=== PATIENT | male | born 1960 | race Caucasian/White ===

== ENCOUNTER 2020-04-02 06:36 | Outpatient (CLI) | payer MEDICARE, SELFPAY ==
--- NOTE | 2020-04-02 06:45 | US_ITS ---
WS: [id number] Normal testicular blood flow. Scrotal and testicular ultrasound, 04/02/2020 Clinical Data: PAIN IN TESTICLE;UNSPECIFIED LATERALITY; SWELLING RIGHT Comparison: None. Findings: The right testes measures 4.7 cm x 3.2 cm x 2.5 cm. There is a large right hydrocele The left testes measures 4.4 cm x cm x 2.4 cm. There is a small left hydrocele There is normal bilateral blood flow with no evidence of orchitis or torsion. No masses or abnormal c alcifications are noted. US/US scrotum 13414 Impression: 1. Large right hydrocele and small left hydrocele. 2. Normal testicular blood flow.
== END 2020-04-02 06:37 | disposition home or self-care (01) ==
PROVIDERS: Visit Provider Family Medicine
DX: N50.819 Testicular pain, unspecified (principal); N50.89 Other specified disorders of the male genital organs; N43.3 Hydrocele, unspecified
CPT/HCPCS: 76870

== ENCOUNTER → 2021-07-29 09:12 | Outpatient (BNVA) | payer BC, SELFPAY | PROVIDERS: Visit Provider Internal Medicine Cardiovascular Disease | DX: Z20.822 Contact with and (suspected) exposure to COVID-19 (principal); E11.9 Type 2 diabetes mellitus without complications; E78.5 Hyperlipidemia, unspecified | CPT/HCPCS: 80053; 80061; 83036; 87635 ==

== ENCOUNTER 2021-08-02 11:10 | Outpatient (CLI) | payer BC, SELFPAY ==
[2021-08-02 12:14] LABS: Anion Gap 20.5 (5-19); Blood Urea Nitrogen 22 mg/dL (8-23); Calcium 9.9 mg/dL (8.5-10.5); Carbon Dioxide 20 mmol/L (22-29); Chloride 99 mmol/L (98-107); Glomerular Filtration Rate 85.2 mL/min (90-130); Glucose 146 mg/dL (65-115); Osmolality Calculated 286 mOsm/kg (285-295); Potassium 4.5 mmol/L (3.5-5.1); Sodium 135 mmol/L (136-145)
[2021-08-05 22:47] LABS: Beta-Hydroxybutyrate 0.24 mmol/L
== END 2021-08-02 11:11 | disposition home or self-care (01) ==
PROVIDERS: Visit Provider Internal Medicine
DX: E87.2 Acidosis (principal)
CPT/HCPCS: 36415; 80048; 82010

== ENCOUNTER 2021-08-03 08:43 | Outpatient (CLI) | payer MEDICARE, BC, SELFPAY ==
[2021-08-03] VITALS (30 sets, daily range): BP systolic 101–141; BP diastolic 60–89; PULSE 67–90; RESP 8–44; TEMP 36.4; O2SAT 92–99; BMI 34.4; BMI 33.7
--- NOTE | 2021-08-03 09:00 | XACV_ITS ---
Exam Room: 2 Ht: 191 cm Wt: 132 kg BSA: 2.68 m2 Gender: Male : 1960 Any Known Allergies: No known allergies Exam Priority: Routine Procedure(s): Procedure Description: Diagnostic procedure Procedure Description: PCI procedure Procedure Description: Drug Eluting Coronary Stent Procedure Description: Miscellaneous Procedure Description: ACT Procedure Description: Coronary Angiography Radha LANCASTER; Diagnostic Cath Status: Elective Diagnostic Findings * Left Main has no disease. * Left Anterior Descending has no disease. * Circumflex has no disease. * Posterior Descending Right: significant 80% stenosis, VICTORIANO: 3 flow. * Coronary angiography shows right dominance. PCI Status: Elective PCI Indication: New Onset Angina <= 2 months Interventional Findings * Posterior Descending Right: 80% stenosis treated with a MDT R KYLEIGH 2.75X12 ROB. 0% residual stenosis, VICTORIANO: 3 flow. Conclusions 1. There is significant coronary artery disease with one vessel disease. 2. Posterior Descending Right was treated with a Drug Eluting Stent. Recommendations * 1-Return to inpatient for close monitoring and routine cath care 2-Risk factor modification for secondary prevention 3-Statin and aspirin 81 mg life--long, if tolerated 4-Patient was pre-loaded with 600 mg of Plavix, continue Plavix 75mg p.o. daily for at least one year. We will assess at the end of one year again to continue if further or not 5-Continue optimal medical management 6-Follow up with cardiology in four weeks and your primary care in 10 days. Diagnostic RX Recommendation: PCI w/o planned CABG Pressures Phase:Rest AO : 82 / 61 ( 72 ) @ 11:24:00 AM Clinical Evaluation EBL: 5mL-10mL Procedural Details Procedure Consent Obtained. Pre-Procedure Time Out. Identified patient by full name and date of as verbalized by the patient/guarantor. Does the consent match the physician's order: Yes. Accurate & Complete Informed Consent: Yes. Inpatient/Outpatient History & Physical on Chart: Yes. If H&P is completed, is and addenduem needed: No; If yes, is the addendum complete: N/A. Visualize and Verify Site with Patient/Guarantor: N/A. Relevant Radiology Images available: Yes. Pre-op teaching completed and patient verbalized understanding. The risks, benefits, and alternatives of sedation and/or procedure were discussed by physician. The patient agrees to continue. Procedure started. [facility] Clinical Fraility Score: 3: Managing Well. 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 Chest Pain Symptom Assessment: Typical Angina Symptoms. Correct patient, site and procedure confirmed by cath team. Current diagnosis: Chest Pain. PERRLA. Strong, equal hand hand rug braider bilaterally. Lungs clear x 5 lobes. IV Site on Arrival: 20 gauge in the left anticubital. IV Fluids: 0.9% NaCl at KVO. 0 mL infused prior to laboratory sampler. Pre Procedural Pulses: right dorsalis pedis was Doppled. Pre Procedural Pulses: left dorsalis pedis was 1+. Pre Procedural Pulses: right posterior tibial was Doppled. Pre Procedural Pulses: left posterior tibial was 1+. Pre Procedural Pulses: bilateral radial was 2+. Oxygen started at 2liters/min via nasal canula. right groin was prepped with chloroprep then draped in the usual sterile fashion. right radial was prepped with chloroprep then draped in the usual sterile fashion. Baseline sample Acquired. HR: 73 BPM. Physician notified. Procedure started. Physician arrived. Physician scrubbed in. Immediate Pre-Procedure Time Out. Correct Patient: Yes; Correct Procedure: Yes; Correct Site: Yes; Correct Patient Position: Yes; Correct Supplies: Yes; Dried Flammable Prep: Yes; Blood Products Available: No;. Lidocaine 1% infiltrated to the right radial. Arterial access obtained. A 5 anguillan Rajiv catheter in over wire. Multiple views taken of right coronary artery. Catheter redirected to the LCA. Multiple views taken of left coronary artery. Catheter out. 6 anguillan [place] 0.75 guide catheter was inserted over the wire. [place] guidewire was advanced through the guide catheter to lesion in the PDA. Inflation Number : 1 [place] KYLEIGH 2.75X12 ROB -Lot Number# [id number] was prepped and advanced across the R PDA. The stent was deployed at 16 MARCELA for 0:22 seconds. exp 04-13-2024. Stent balloon out over wire. Results checked. Wire out. Guide catheter out. ACT drawn. Results 265 seconds. Therapeutic limits - pre-heparin administration 90-150 seconds and monitoring heparin during a vascular procedure >250 seconds. TR band placed. Hemostasis obtained. Post Procedure: Pulses reassessed and unchanged. PERRLA. Strong, equal hand hand rug braider bilaterally. No VTE prophylaxis required. Medication's Wasted: Lidocaine 1% = 18 mL. Medication's Wasted: Nitro = 49.8 mg. Medication's Wasted: Heparin = 3000 units. Total IV fluids: 71 mL. Complications: None. Estimated blood loss: 5mL-10mL. Responsiveness - Normal response to verbal stimuli; alert and oriented, PERRLA. Airway - Unaffected, no intervention required; spontaneous ventilation. Circulation: W/N/L, pulses unchanged. Nausea/Vomiting: No. Procedure completed. Patient transferred by wheelchair to 1st floor. Vital chart was stopped. Access Site Site: Right Radial artery Sheath Size: 6 Fr Hemostasis Success: Unsuccessful Procedure Medications Start: 12:51 PM Stop: 12:51 PM Medication: Benadryl Amount: 50 mg Route: I.V. Start: 1:08 PM Stop: 1:08 PM Medication: Versed Amount: 1 mg Route: I.V. Start: 1:08 PM Stop: 1:08 PM Medication: Fentanyl Amount: 50 mcg Route: I.V. Start: 1:12 PM Stop: 1:12 PM Medication: Versed Amount: 1 mg Route: I.V. Start: 1:12 PM Stop: 1:12 PM Medication: Fentanyl Amount: 50 mcg Route: I.V. Start: 1:16 PM Stop: 1:16 PM Medication: Nitrogylcerin Amount: 200 mcg Route: I.A. Start: 1:16 PM Stop: 1:16 PM Medication: Versed Amount: 1 mg Route: I.V. Start: 1:16 PM Stop: 1:16 PM Medication: Fentanyl Amount: 50 mcg Route: I.V. Start: 1:18 PM Stop: 1:18 PM Medication: Heparin Amount: 5000 units Route: I.V. Start: 1:30 PM Stop: 1:30 PM Medication: Heparin Amount: 8000 units Route: I.V. Start: 1:38 PM Stop: 1:38 PM Medication: Aggrastat 12.5 mg/250 mL Amount: 65 ml Route: I.V. bolus Start: 1:42 PM Stop: 1:42 PM Medication: Aggrastat 12.5 mg/250 mL Amount: ml/hr Route: I.V. bolus Start: 1:50 PM Stop: 1:50 PM Medication: Plavix Amount: 600 mg Route: P.O. I, the attending physician, have reviewed and verified all procedure medications. Yes, all medications given per verbal order History/Risk Factors Hypertension: Yes Dyslipidemia: Yes Peripheral Arterial Disease (PAD): No Myocardial Infarction (ID): No Obesity: No Renal Disease: No Prior Interventions PCI: No CABG: No Valve Surgery: No Report Signatures Finalized by Erika Garcia MD on 08/15/2021 04:29 PM
[2021-08-03 09:51] LABS: Basophils % 0.7 %; Eosinophils # 0.2 10^3/uL (0.0-0.8); Eosinophils % 3.3 %; Hemoglobin 14.2 g/dL (11.7-16.6); Lymphocytes # 1.4 10^3/uL (0.8-4.8); Lymphocytes % 23.5 %; Mean Corpuscular Hemoglobin 28.5 pg (28.0-34.0); Mean Corpuscular Volume 86.3 fl (80-94); Mean Platelet Volume 9.5 fL (7.4-10.4); Monocytes # 0.5 10^3/uL (0.2-0.9); Monocytes % 7.6 %; Neutrophils # 3.89 10^3/uL (1.8-7.7); Neutrophils % 64.6 %; Nucleated Red Blood Cells % 0 %; Platelet Count 215 10^3/cmm (130-400); Red Blood Count 4.98 10^6/uL (4.1-5.3); Red Cell Distribution Width 12.1 % (12.1-15.1)
--- NOTE | 2021-08-03 13:06 | P.HP_ITS ---
Same Day Surgery H&P Indication for Procedure/HPI DATE OF PROCEDURE: August 03, 2021 CHIEF COMPLAINT/INDICATIONFOR SURGICAL PROCEDURE: Chest pain PREOP DIAGNOSIS: Chest pain relieved with nitroglycerin on frequent basis PLANNED PROCEDRUE: Operation Date: 08/03/21 10:00 Proposed Procedures p Cardiac Catheterization(Left) - Erika Garcia MD 61-year-old male past medical history significant for hypertension hyperlipidemia uncontrolled diabetes mellitus for worsening of chest pain or shortness of breath and frequent use of nitroglycerin for chest pain is here for left heart cath. Patient has been explained all risk benefit and already for the procedure he would like to proceed with it. According to him he chest pain is crippling him and he cannot do much without taking nitroglycerin. He is on statin aspirin lisinopril and nitroglycerin along with beta-chandra. He is on optimal medical management but it has not improved his situation. Medications/Allergies* Home Medications Medication Instructions Recorded Confirmed Type cholecalciferol (vitamin D3) 125 125 mcg PO DAILY 06/24/21 08/03/21 History mcg (5,000 unit) capsule multivitamin 1 tab PO DAILY 06/24/21 08/03/21 History potassium gluconate 595 mg (99 mg) 595 mg PO DAILY 07/28/21 08/03/21 History tablet Ozempic 0.5 mg SUBCUT DIRECTED 08/03/21 08/03/21 History Allergies/Adverse Reactions Allergy/AdvReac Type Severity Reaction Status Date / Time No Known Allergies Allergy Verified 07/28/21 10:06 Pertinent History/Comorbid Conditions* Medical History (Updated 07/30/21 @ 08:55 by Watson Hernández MD) Arthritis DDD (degenerative disc disease) Diabetes mellitus HTN (hypertension) Hyperlipidemia Sleep apnea Surgical History (Updated 07/28/21 @ 21:38 by Watson Hernández MD) History of back surgery History of hydrocelectomy S/P hernia repair S/P shoulder surgery S/P total knee arthroplasty Family History (Updated 06/24/21 @ 10:24 by Fallon William RN) Father, Small cell lung disease Diabetes Mother CHF (congestive heart failure) Mother FH: CABG (coronary artery bypass surgery) Father Lung disease Father Cancer Hypertension Mother Father Stroke Mother Social History Second hand smoke exposure: No Smoking risk assessment/counseling performed?: Yes Alcohol intake: never Desire information about alcohol rehabilitation?: No Counseling given: No Desire information about substance/drug rehabilitation?: No Counseling given: No Adopted: No Caregiver/support person: No Lives independently: Yes Household members: spouse Housing: House Marital status: Number of children: 4 Highest education level completed: Some College, No Degree Education level details: 4 yrs electronic service: No Current occupational status: disabled History of recent travel: No Pertinent Exam Findings alert, oriented x 3, clear to auscultation bilaterally and regular rate & rhythm Conscious Sedation Assessment PATIENT ASSESSED PRIOR TO SEDATION, WITH NO CHANGE NOTED: Yes AIRWAY EVAL/ANESTHESIA PLAN: ASA II and Risks, benefits & alternatives of sedation and/or procedure discussed Recommendations Surgery/Procedure today Coding Level of Care Code Acute 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
--- NOTE | 2021-08-03 13:06 | W.PM.OPSUD ---
Surgery/Procedure H&P Update DATE OF PROCEDURE: August 03, 2021 DATE H&P PERFORMED: 08/03/21 H&P UPDATE INFORMATION: I have reviewed H&P completed within last 30 days, I have examined patient prior to procedure and No changes to prior documentation PREOP DIAGNOSIS: Angina worsening of shortness of breath PLANNED PROCEDURE: Operation Date: 08/03/21 10:00 Proposed Procedures p Cardiac Catheterization(Left) - Erika Garcia MD PATIENT REASSESSED PRIOR TO SEDATION, WITH NO CHANGE NOTED: Yes PHYSICAL EXAM: alert and oriented x 3 AIRWAY EVAL/ANESTHESIA PLAN: ASA II and Risks, benefits & alternatives of sedation and/or procedure discussed ADDITIONAL INFORMATION: Patient has been explained all risk benefit and alternative for the procedure he understand risk for contrast-induced nephropathy stroke major minor bleed he is a Rastafarian would not like to be transfused. He understand risk for urgent emergent bypass surgery vascular surgery hematoma. He is a candidate for DAPT he would like to proceed with it
[2021-08-03] MEDS: tirofiban 5 MG/100 ML PREMIX 23.6 MG IV (14:00)
[2021-08-03] MEDS: sodium chloride 0.9% 1,000 ML 100 ML IV (14:00)
--- NOTE | 2021-08-03 15:57 | PC.NURSE ---
received in to room 107 from cardiac cemetery laborer at 1410.report received.pt is alert and awake.denies pain.sr on monitor.right wrist with tr band on and inflated.no hematoma noted.right hand is warm to touch and with brisk capillary refill.palpable radial pulse noted distal to tr band.instructed in activity restrictions s/p radial artery procedure and instructed to notify staff for any bleeding,pain,numbness,or for any concerns at all.pt verb understanding of instructions
--- NOTE | 2021-08-03 19:21 | PC.NURSE ---
tr band slowly deflated over several hours.no hematoma noted.right hand remains warm to touch and with brisk capillary refill.palpable radial pulse remains.instructed in activity restrictions..and to notify staff for any bleeding,pain,numbness,or for any concerns at all.pt verb understanding of instructions
[2021-08-04] VITALS (46 sets, daily range): BP systolic 114–123; BP diastolic 69–82; PULSE 67–88; RESP 0–40; TEMP 36.9; O2SAT 97–99
[2021-08-04 03:12] LABS: Basophils % 0.5 %; Eosinophils # 0.2 10^3/uL (0.0-0.8); Eosinophils % 2.6 %; Hematocrit 40.9 % (42.0-52.0); Hemoglobin 13.5 g/dL (11.7-16.6); Lymphocytes # 0.9 10^3/uL (0.8-4.8); Mean Corpuscular Hemoglobin 29.2 pg (28.0-34.0); Mean Corpuscular Volume 88.3 fl (80-94); Mean Platelet Volume 9.3 fL (7.4-10.4); Monocytes # 0.6 10^3/uL (0.2-0.9); Monocytes % 10.3 %; Neutrophils # 4.41 10^3/uL (1.8-7.7); Neutrophils % 72.4 %; Nucleated Red Blood Cells % 0 %; Platelet Count 179 10^3/cmm (130-400); Red Blood Count 4.63 10^6/uL (4.1-5.3); Red Cell Distribution Width 12.3 % (12.1-15.1); White Blood Count 6.1 10^3/uL (4.0-10.0)
[2021-08-04 03:31] LABS: Anion Gap 17.9 (5-19); Blood Urea Nitrogen 19 mg/dL (8-23); Calcium 8.5 mg/dL (8.5-10.5); Carbon Dioxide 21 mmol/L (22-29); Chloride 102 mmol/L (98-107); Glomerular Filtration Rate 67.6 mL/min (90-130); Glucose 119 mg/dL (65-115); Osmolality Calculated 287 mOsm/kg (285-295); Potassium 3.9 mmol/L (3.5-5.1); Sodium 137 mmol/L (136-145)
--- NOTE | 2021-08-04 09:02 | PM.DCS ---
Discharge Providers Date of Discharge: August 04, 2021 Attending Provider at Discharge: Erika Garcia MD Reason for Visit Reason for Visit: 20209 [id number] Hospital Course Hospital Course 58-year-old male past medical history significant for obesity hypertension hyperlipidemia diabetes mellitus for worsening of shortness of breath and chest pain requiring nitroglycerin underwent coronary angiogram noted to have significant mid PDA 30% stenotic lesion. Were treated with drug-eluting stent. Post PCI course remains uncomplicated this morning he is walking around without any difficulty. He is being discharged home. He has been advised to continue aspirin and statin and clopidogrel. After 1 year we will assess for the necessity to continue clopidogrel or not. Physical Exam Narrative: EXAM NARRATIVE: GENERAL: Patient is alert, awake and oriented x3. NECK: No jugular vein distension. HEENT: No cyanosis. No icterus. No pallor. HEART: Regular S1 and S2. No murmur, rub or gallop. LUNGS: Clear to auscultate bilaterally. ABDOMEN: Soft, nontender and nondistended. Positive bowel sounds. No guarding, rebound or tenderness. CENTRAL NERVOUS SYSTEM: Grossly nonfocal. EXTREMITIES: Lower extremities without edema bilaterally. 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 Routin e Exams 08/03/21 09:00 Taken Labs from last 24 hours 08/04/21 08/04/21 08/03/21 02:20 02:20 09:33 WBC 6.1 6.0 RBC 4.63 4.98 Hgb 13.5 14.2 Hct 40.9 L 43.0 MCV 88.3 86.3 MCH 29.2 28.5 MCHC 33.0 33.0 RDW 12.3 12.1 Plt Count 179 215 MPV 9.3 9.5 Neut % (Auto) 72.4 64.6 Lymph % (Auto) 14.0 23.5 Mathews % (Auto) 10.3 7.6 Eos % (Auto) 2.6 3.3 Baso % (Auto) 0.5 0.7 Neut # (Auto) 4.41 3.89 Lymph # (Auto) 0.9 1.4 Mathews # (Auto) 0.6 0.5 Eos # (Auto) 0.2 0.2 Baso # (Auto) 0.0 0.0 Nucleated RBC % (a uto) 0 0 Nucleated RBCs # 0.0 0.0 Sodium 137 Potassium 3.9 Chloride 102 Carbon Dioxide 21 L Anion Gap 17.9 BUN 19 Creatinine 1.1 GFR Calculation 67.6 L Glucose 119 H Calculated Osmolal ity 287 Calcium 8.5 Vitals: Last Vital Signs Temp 97.6 F 08/03/21 09:48 Pulse 68 08/04/21 04:53 Resp 18 08/04/21 03:35 BP 114/69 08/04/21 03:35 Pulse Ox 97 08/04/21 00:20 Discharge Plan Discharge Patient Disposition: Home Prescriptions: New clopidogrel 75 mg Tablet 75 mg PO DAILY Qty: 90 RF: 4 Continued multivitamin Tablet 1 tab PO DAILY RF: 0 cholecalciferol (vitamin D3) 125 mcg (5,000 unit) capsule 125 mcg PO DAILY RF: 0 metoprolol succinate 25 mg tablet extended release 24 hr 12.5 mg PO DAILY Qty: 45 RF: 3 lisinopril 10 mg tablet 10 mg PO DAILY Qty: 90 RF: 3 atorvastatin 40 mg tablet 40 mg PO DAILY Qty: 90 RF: 3 nitroglycerin [Nitrostat] 0.4 mg tablet, sublingual 0.4 mg sublingual Q5M PRN (Reason: chest pain) Qty: 25 RF: 3 aspirin [Adult Low Dose Aspirin] 81 mg tablet,delayed release (DR/EC) 81 mg PO DAILY Qty: 90 RF: 3 potassium gluconate 595 mg (99 mg) tablet 595 mg PO DAILY RF: 0 Jardiance 25 mg tablet 25 mg PO DAILY Qty: 90 RF: 3 metformin 1,000 mg tablet 1,000 mg PO BID Qty: 180 RF: 3 Ozempic 0.5 mg 0.5 mg SUBCUT DIRECTED RF: 0 Discontinued isosorbide mononitrate 30 mg tablet extended release 24 hr 15 mg PO BID Qty: 90 RF: 3 Discharge Orders: Discharge Order (Routine); Ordered 08/04/21 Ordered By: Erika Garcia Diet: Cardiac and Diabetic Activity: Increase activity as tolerated Patient Instructions: Coronary Intravascular Stent Placement (DC) Activity Restrictions/Additional Instructions: Dr. Arellano in 6 weeks. Follow-up with Sarah Concepcion in 7 days. You have an appointment with Sarah Concepcion [facility] on August 13 at 11:30 am. You have an appointment with Dr. Arellano on MondaySeptember 13 at 12:30 pm. Discharge Date/Time: 08/04/21 10:30 Discharge Attestations Time Spent in Discharge Care*: less than 30 min Specific Discharge Activities: educating patient Time Spent in Smoking Cessation: 3 to 10 minutes Quality Metrics Clinical Quality Measures During this hospital stay, did patient experience: None Coding Level of Care Code Established Pt Acute Chg FW DC note Patient Type Established History Detailed Exam Detailed Medical Decision Making Moderate Complexity
[2021-08-04] MEDS: clopidogrel 75 mg Tablet PO (09:11)
[2021-08-04] MEDS: atorvastatin 40 mg Tablet PO (09:11)
[2021-08-04] MEDS: aspirin 81 mg EC Tablet PO (09:12)
--- NOTE | 2021-08-04 09:56 | PC.CHAP ---
Pastoral Care Encounter/Spiritual Assessment Type of Contact [] Declined chimney builder visit [] Patient/Family/Request visit [] Outpatient visit [] Follow-up visit [] Physician referral [] Code/Alert [x] Routine visit [] Staff referral [] Actively dying [] Patient sleeping [] Family support [] [] Out of room [] Palliative care [] [] Receiving care in room [] Pre-surgical visit [] Trauma [] Long length of stay [] ICU visit [] Other: Relational/Emotional Strength [] Patient feels connected with others/family/visitors/staff [] Distress [] Loneliness/isolation [] Abandonment Spirituality of Patient [] Person of Dara [] Attends Evangelical of their Dara [] Believes in Prayer [] Reads Bible or Protestant materials [] There are Spiritual issues to be addressed Track Layer Interventions [] Prayer [] Active listening [] Non-anxious presence [] Spiritual/emotional support [] Crisis/trauma care [] Spiritual counseling [] Bereavement support [] Provided bereavement packet [] Provided Bible/devotional materials [] Provided toy/stuffed animal, coloring book to patient or family member [] Provided Communion [] Anointing/Imbler [] Salvation [x] Completed spiritual assessment [] Other: Impact on Illness or Injury [] Angry [] Fearful [] Anxious [] Often cries [] Exhaustion [] Unable to work [] Unable to attend restoration [] Unable to walk/stand [] Unable to read [] Unable to drive [] Unable to eat/drink [] Unable to sleep [] Unable to be with family [] Patient intubated [] Other: Summary patient had procedure.. because of his dara i prayed outside the room.. but wished him well and excited about him preparing to return home Time spent with patient 5 min
== END 2021-08-04 10:30 | disposition home or self-care (01) ==
LOC: CCL 08:50 → CSU 13:53
PROVIDERS: Visit Provider Internal Medicine Cardiovascular Disease
DX: I25.10 Atherosclerotic heart disease of native coronary artery without angina pectoris (principal); I10 Essential (primary) hypertension; E78.5 Hyperlipidemia, unspecified; M19.90 Unspecified osteoarthritis, unspecified site; E11.9 Type 2 diabetes mellitus without complications; G47.30 Sleep apnea, unspecified; Z79.82 Long term (current) use of aspirin; Z79.84 Long term (current) use of oral hypoglycemic drugs
CPT/HCPCS: 36415; 80048; 85025; 85347; 93454; C1769; C1874; C1887; C1894; C9600; J1200; J1644; J2250; J3010; J3490; J7030; Q9967

== ENCOUNTER → 2021-08-13 11:28 | Outpatient (BNVA) | payer MEDICARE, SELFPAY | PROVIDERS: Visit Provider Nurse Practitioner Family | DX: E78.5 Hyperlipidemia, unspecified (principal); I10 Essential (primary) hypertension | CPT/HCPCS: 80048 ==

== ENCOUNTER → 2022-01-14 09:43 | Outpatient (BNVA) | payer MEDICARE, SELFPAY | PROVIDERS: Visit Provider Internal Medicine | DX: I25.10 Atherosclerotic heart disease of native coronary artery without angina pectoris (principal); I10 Essential (primary) hypertension; E11.9 Type 2 diabetes mellitus without complications; Z79.84 Long term (current) use of oral hypoglycemic drugs | CPT/HCPCS: 99213; 99214 ==

== ENCOUNTER → 2022-01-26 08:38 | Outpatient (BNVA) | payer MEDICARE, SELFPAY | PROVIDERS: Visit Provider Internal Medicine | DX: E11.9 Type 2 diabetes mellitus without complications (principal); E78.5 Hyperlipidemia, unspecified | CPT/HCPCS: 80053; 80061; 82043; 83036 ==

== ENCOUNTER → 2022-07-08 10:20 | Outpatient (BNVA) | payer MEDICARE, SELFPAY | PROVIDERS: PCP Family Medicine; Visit Provider Internal Medicine | DX: I25.10 Atherosclerotic heart disease of native coronary artery without angina pectoris (principal); I10 Essential (primary) hypertension; E78.5 Hyperlipidemia, unspecified; E11.9 Type 2 diabetes mellitus without complications; Z79.84 Long term (current) use of oral hypoglycemic drugs | CPT/HCPCS: 99214 ==

== ENCOUNTER → 2022-12-21 08:40 | Outpatient (BNVA) | payer MEDICARE, SELFPAY | PROVIDERS: PCP Family Medicine; Visit Provider Internal Medicine | DX: E78.5 Hyperlipidemia, unspecified (principal) | CPT/HCPCS: 80053; 80061; 82043; 83036 ==

== ENCOUNTER → 2023-03-31 09:29 | Outpatient (BNVA) | payer MEDICARE, SELFPAY | PROVIDERS: PCP Family Medicine; Visit Provider Internal Medicine | DX: E11.9 Type 2 diabetes mellitus without complications (principal); E78.5 Hyperlipidemia, unspecified | CPT/HCPCS: 80053; 80061; 82043; 83036 ==

== ENCOUNTER → 2023-04-03 10:37 | Outpatient (BNVA) | payer MEDICARE, SELFPAY | PROVIDERS: PCP Family Medicine; Visit Provider Internal Medicine | DX: E11.9 Type 2 diabetes mellitus without complications (principal); E78.5 Hyperlipidemia, unspecified; Z79.84 Long term (current) use of oral hypoglycemic drugs | CPT/HCPCS: 99214 ==

== ENCOUNTER → 2023-04-07 08:56 | Outpatient (BNVA) | payer MEDICARE, SELFPAY | PROVIDERS: PCP Family Medicine; Visit Provider Internal Medicine | DX: I10 Essential (primary) hypertension (principal); E11.9 Type 2 diabetes mellitus without complications; E78.5 Hyperlipidemia, unspecified; I25.10 Atherosclerotic heart disease of native coronary artery without angina pectoris; Z79.84 Long term (current) use of oral hypoglycemic drugs | CPT/HCPCS: 99213 ==

== ENCOUNTER → 2023-06-06 13:46 | Outpatient (BNVA) | payer MEDICARE, SELFPAY | PROVIDERS: PCP Clinical Nurse Specialist Adult Health; Visit Provider Clinical Nurse Specialist Adult Health | DX: J06.9 Acute upper respiratory infection, unspecified (principal) | CPT/HCPCS: 87426 ==

== ENCOUNTER → 2023-08-22 09:53 | Outpatient (BNVA) | payer MEDICARE, SELFPAY | PROVIDERS: PCP Family Medicine; Visit Provider Internal Medicine | DX: E11.9 Type 2 diabetes mellitus without complications (principal); E78.5 Hyperlipidemia, unspecified | CPT/HCPCS: 80053; 80061; 82043; 83036 ==

== ENCOUNTER → 2023-08-30 09:55 | Outpatient (BNVA) | payer MEDICARE, SELFPAY | PROVIDERS: PCP Family Medicine; Visit Provider Internal Medicine | DX: E11.69 Type 2 diabetes mellitus with other specified complication (principal); E78.5 Hyperlipidemia, unspecified; Z79.84 Long term (current) use of oral hypoglycemic drugs | CPT/HCPCS: 99214 ==

== ENCOUNTER → 2024-02-13 09:05 | Outpatient (BNVA) | payer MEDICARE, SELFPAY | PROVIDERS: PCP Family Medicine; Visit Provider Internal Medicine | DX: E11.69 Type 2 diabetes mellitus with other specified complication (principal); E78.5 Hyperlipidemia, unspecified | CPT/HCPCS: 80053; 80061; 82043; 83036 ==

== ENCOUNTER → 2024-02-15 08:53 | Outpatient (BNVA) | payer MEDICARE, SELFPAY | PROVIDERS: PCP Family Medicine; Visit Provider Internal Medicine | DX: E11.69 Type 2 diabetes mellitus with other specified complication (principal); E78.5 Hyperlipidemia, unspecified; Z79.84 Long term (current) use of oral hypoglycemic drugs | CPT/HCPCS: 99214 ==

== ENCOUNTER → 2024-02-29 09:50 | Outpatient (BNVA) | payer MEDICARE, SELFPAY | PROVIDERS: PCP Family Medicine; Visit Provider Nurse Practitioner Family | DX: I10 Essential (primary) hypertension (principal); I25.10 Atherosclerotic heart disease of native coronary artery without angina pectoris | CPT/HCPCS: 99214 ==

== ENCOUNTER → 2024-04-03 08:37 | Outpatient (BNVA) | payer MEDICARE, SELFPAY | PROVIDERS: PCP Family Medicine; Visit Provider Internal Medicine | DX: E11.69 Type 2 diabetes mellitus with other specified complication (principal); E78.5 Hyperlipidemia, unspecified; Z79.4 Long term (current) use of insulin; Z79.84 Long term (current) use of oral hypoglycemic drugs | CPT/HCPCS: 99214 ==

== ENCOUNTER → 2024-06-30 10:49 | Outpatient (BNVA) | payer MEDICARE, SELFPAY | PROVIDERS: PCP Family Medicine; Visit Provider Emergency Medicine | DX: R05.8 Other specified cough (principal) | CPT/HCPCS: 87426 ==

== ENCOUNTER 2024-08-20 10:14 | Outpatient (CLI) | payer MEDICARE, SELFPAY ==
--- NOTE | 2024-08-20 10:31 | XR_ITS ---
WS: [id number] Exam: XR knee RT 3V* [id number] Date/Time of Exam: 08/20/2024 10:34 AM Reason For Exam: M25.561 - Pain in right knee Total arthroplasty noted in good position without loosening or fracture. No joint effusion. Vascular calcification in the posterior soft tissues. Additional soft tissue calcifications noted medial and p osterior. XR/XR knee RT 3V* [id number] IMPRESSION: 1. Intact RIGHT total knee replacement without obvious complication.
== END 2024-08-20 10:15 | disposition home or self-care (01) ==
PROVIDERS: PCP Family Medicine; Visit Provider Nurse Practitioner Family
DX: M25.561 Pain in right knee (principal); Z96.89 Presence of other specified functional implants; Z96.651 Presence of right artificial knee joint; R93.6 Abnormal findings on diagnostic imaging of limbs
CPT/HCPCS: 73562

== ENCOUNTER 2024-09-25 09:11 | Outpatient (CLI) | payer MEDICARE, SELFPAY ==
--- NOTE | 2024-09-25 09:30 | MR_ITS ---
WS: [id number] MRI LUMBAR SPINE NONCONTRAST TECHNIQUE: Sagittal T1, T2 and STIR imaging. Axial T1 and T2 imaging. CLINICAL INFORMATION: M51.379 - Other intervertebral disc degeneration, lumbosa... COMPARISON: None. FINDINGS: Mild lumbar curve. No acute compression. Laminectomy defects L4-5 with wide decompression. Chronic appearing seroma in the laminectomy defects. Interbody bony fusion at L4-L5 and L5-S1. Interbody fusion graft L4-5. L1-L2: Moderate central canal stenosis. Moderate facet arthropathy with ligamentum flavum hypertrophy. Narrowing of the subarticular recess. Mild bilateral foraminal narrowing. L2-L3: Shallow central disc protrusion. Moderate central canal stenosis. Impingement on the subarticular recess bilaterally. Advanced facet arthropathy. Mild LEFT greater than RIGHT foraminal narrowing L3-L4: Mild annular bulging. Slight effacement of the ventral thecal sac. Moderate to advanced facet arthropathy. Foramen are patent. L4-L5: Interbody graft fusion. Impingement on the RIGHT subarticular recess and traversing RIGHT L5 nerve root. Moderate RIGHT foraminal narrowing. Decompressive laminectomy defects. L5-S1: Central disc osteophyte protrusion. Slight impingement on the traversing LEFT greater than RIGHT S1 nerve roots. Mild RIGHT greater than LEFT foraminal narrowing. Visualized pelvic bony structures: Normal. Paravertebral soft tissues: Normal. Small bilateral renal cysts partially visualized. MR/MR lumbar spine wo con* [id number] IMPRESSION: 1. Moderate central canal stenosis L1-2 and L2-3 worse at L2-3 with impingemen t on the subarticular recess bilaterally. 2. Narrowing of the RIGHT L4-5 subarticular recess with decompressive laminect kelsie defects. Moderate RIGHT L4-5 bony foraminal narrowing. 3. Slight retrolisthesis L5 on S1 with disc osteophyte protrusion. Slight encr oachment on the traversing S1 nerve roots LEFT greater than RIGHT. Mild bilater al foraminal narrowing.
== END 2024-09-25 09:12 | disposition home or self-care (01) ==
PROVIDERS: PCP Family Medicine; Visit Provider Nurse Practitioner Family
DX: M51.379 Other intervertebral disc degeneration, lumbosacral region without mention of lumbar back pain or lower extremity pain (principal); M48.061 Spinal stenosis, lumbar region without neurogenic claudication; R93.7 Abnormal findings on diagnostic imaging of other parts of musculoskeletal system; M96.89 Other intraoperative and postprocedural complications and disorders of the musculoskeletal system; M43.8X6 Other specified deforming dorsopathies, lumbar region; Z98.1 Arthrodesis status; M47.896 Other spondylosis, lumbar region; M24.28 Disorder of ligament, vertebrae; M51.369 Other intervertebral disc degeneration, lumbar region without mention of lumbar back pain or lower extremity pain; M25.78 Osteophyte, vertebrae; M51.27 Other intervertebral disc displacement, lumbosacral region; M48.07 Spinal stenosis, lumbosacral region; N28.1 Cyst of kidney, acquired
CPT/HCPCS: 72148

== ENCOUNTER → 2024-10-16 09:28 | Outpatient (BNVA) | payer MEDICARE, SELFPAY | PROVIDERS: PCP Family Medicine; Visit Provider Internal Medicine | DX: E11.69 Type 2 diabetes mellitus with other specified complication (principal); E78.5 Hyperlipidemia, unspecified | CPT/HCPCS: 80053; 80061; 82043; 83036 ==

== ENCOUNTER → 2024-10-22 09:13 | Outpatient (BNVA) | payer MEDICARE, SELFPAY | PROVIDERS: PCP Family Medicine; Visit Provider Internal Medicine | DX: E11.69 Type 2 diabetes mellitus with other specified complication (principal); E78.5 Hyperlipidemia, unspecified | CPT/HCPCS: 99214 ==

== ENCOUNTER 2024-11-19 08:34 | Outpatient (CLI) | payer MEDICARE, SELFPAY ==
--- NOTE | 2024-11-19 08:37 | IR_ITS ---
WS: [id number] MYELOGRAM LUMBAR SPINE Fluoroscopic guided lumbar myelogram CLINICAL INFORMATION: CHRONIC PAIN SYNDROME/SPINAL STENOSIS/S/P LSPINE FUSION TECHNIQUE: The procedure, including risks, benefits, and complications, were discussed with the patient who agreed to proceed. A timeout was performed to confirm correct patient, procedure, and site. Using sterile technique, the patient was prepped and draped in the usual sterile fashion. After administration of local anesthesia using 1% preservative-free lidocaine and using fluoroscopic guidance, a 22-gauge spinal needle was advanced into the subarachnoid space at T12-L1 level. Subsequently 13 cc of Omnipaque 240 was administered into the thecal sac. The needle was removed and hemostasis was achieved. Spot fluoroscopic images were obtained. FLUOROSCOPIC TIME: 4min [id number] # of spot films: [address] myelogram report for additional detail. IR/IR myelogram sp lumbar [id number] IMPRESSION: 1. Uncomplicated lumbar myelogram. 2. Please see CT report for imaging detail.
--- NOTE | 2024-11-19 08:37 | CT_ITS ---
WS: [id number] CT LUMBAR SPINE TECHNIQUE: Contrast-enhanced CT of the lumbar spine with coronal and sagittal reformatted images. Initial and 45-minute delayed imaging was obtained CLINICAL INFORMATION: DEGENERATION OF INTERVERTEBRAL DISC OF LSPINE REGION COMPARISON: MRI 09/25/2024 DLP: 1409.[address] scans at [facility] use at least one of these dose optimization techniques: automated exposure control; mA and/or kV adjustment per patient size (includes targeted exams where dose is matched to clinical indication); or iterative reconstruction. FINDINGS: Mild lumbar curve. No acute compression. Interbody fusion L4-5. Laminectomy defects in the lower lumbar spine with prominent dorsal lateral bone graft material. Interbody fusion L3-L5 with evidence of bony bridging beyond the confines of the graft. Hypertrophic changes lower thoracic and lumbar spine. Fluid collection in the laminectomy defects extending from L4-S1 with a few septations. Some of this may represent chronic postoperative seroma however there is a tiny amount of contrast staining on the initial and delayed imaging more conspicuous posterior to the facets at the L4-L5 and L5-S1 levels with a small amount of serpiginous contrast staining suspicious for pseudomeningocele. See notated images. No active extravasation of contrast or midline leaks involving the thecal sac L1-L2: Mild central canal stenosis. Narrowing of the subarticular recess. Moderate facet arthropathy ligamentum flavum hypertrophy. L2-L3: Mild annular bulging. Small central protrusion. Moderate thecal sac stenosis with crowding of the cauda equina nerve rootlets. Moderate facet arthropathy ligamentum flavum hypertrophy. Central canal stenosis is similar to the prior MRI. Mild LEFT foraminal narrowing. L3-L4: Interbody fusion. Moderate facet arthropathy. Laminectomy defects. Spinal canal and foramen are patent. L4-L5: Interbody bony fusion. Laminectomy defects. Mild RIGHT and no significant LEFT foraminal narrowing. Slight narrowing of the RIGHT greater than LEFT subarticular recess. Moderate facet arthropathy with posterolateral bone graft material. L5-S1: Residual disc osteophyte ridging with interbody fusion. Slight retrolisthesis. Slight contact of the traversing S1 nerve roots. Mild RIGHT greater than LEFT foraminal narrowing. Moderate facet arthropathy. Laminectomy defects. Visualized pelvic bony structures: Normal. Paravertebral soft tissues: Normal. Small bilateral renal cysts. CT/CT lumbar spine w con [id number] IMPRESSION: 1. Small amount of extrathecal contrast staining detailed above suspicious for postoperative pseudomeningocele although no dynamic visualized contrast leakag e or midline thecal sac CSF leak. Recommend follow-up with neurosurgery. 2. Mild central canal stenosis L1-2 and moderate central canal stenosis L2-3. Crowding of the cauda equina nerve rootlets at L2-3. 3. Impingement on the RIGHT greater than LEFT subarticular recess at L4-L5. 4. L5-S1 osteophyte complex contacts the LEFT greater than RIGHT S1 nerve root s. 5. Mild to moderate RIGHT L4-5 and moderate RIGHT L5-S1 foraminal narrowing.
[2024-11-19] MEDS: iohexol 240 mg/mL 50 mL Btl 20 ML INTRATHECA (10:16)
== END 2024-11-19 08:35 | disposition home or self-care (01) ==
PROVIDERS: PCP Family Medicine; Visit Provider Nurse Practitioner
DX: M51.372 Other intervertebral disc degeneration, lumbosacral region with discogenic back pain and lower extremity pain (principal); G89.4 Chronic pain syndrome; M48.061 Spinal stenosis, lumbar region without neurogenic claudication; M48.07 Spinal stenosis, lumbosacral region; Z98.1 Arthrodesis status; R93.89 Abnormal findings on diagnostic imaging of other specified body structures; M25.78 Osteophyte, vertebrae; M43.8X6 Other specified deforming dorsopathies, lumbar region; M96.89 Other intraoperative and postprocedural complications and disorders of the musculoskeletal system; M47.896 Other spondylosis, lumbar region; M24.28 Disorder of ligament, vertebrae; M51.369 Other intervertebral disc degeneration, lumbar region without mention of lumbar back pain or lower extremity pain; M51.26 Other intervertebral disc displacement, lumbar region; M47.897 Other spondylosis, lumbosacral region; N28.1 Cyst of kidney, acquired
CPT/HCPCS: 62304; 72132; J9999

== ENCOUNTER 2024-11-23 21:00 | Emergency (ER) | payer MEDICARE, SELFPAY ==
[2024-11-23 21:01] VITALS: BP 123/67; PULSE 75; RESP 22; TEMP 37.6; O2SAT 100; BMI 33.2
--- NOTE | 2024-11-23 21:05 | ECG_ITS ---
[facility] Test Date: 2024-11-23 Pat Name: Larry Rangel Department: Room: Gender: Male Manager Cardiology: : 1960 Requested By: Deondre Urbano Order Number: [id number] Mckeon MD: Matty Arellano M.D. Measurements Intervals [place] Rate: 74 P: 58 NM: 327 QRS: -39 QRSD: 88 T: 34 QT: 368 QTc: 409 Interpretive Statements SINUS RHYTHM WITH FIRST DEGREE AV BLOCK LEFT AXIS DEVIATION [QRS AXIS < -30] PATTERN CONSISTENT WITH PULMONARY DISEASE No previous ECG available for comparison Electronically Signed On 11-25-2024 09:17:58 CDT by Matty Arellano M.D. [email or web address] [id number]
--- NOTE | 2024-11-23 21:16 | XRR_ITS ---
PROCEDURE INFORMATION: Exam: XR Chest Exam date and time: 11/23/2024 9:22 PM Age: 64 years old Clinical indication: Pain; Chest pressure; Additional info: Cp TECHNIQUE: Imaging protocol: Radiologic exam of the chest. Views: 1 view. COMPARISON: No relevant prior studies available. FINDINGS: Lungs: Unremarkable. No consolidation. Pleural spaces: Unremarkable. No pleural effusion. No pneumothorax. Heart/Mediastinum: Unremarkable. No cardiomegaly. Bones/joints: Unremarkable. XR/XR chest 1V portable [id number] IMPRESSION: No acute findings.
--- NOTE | 2024-11-23 21:27 | W.ED.CHESTPA ---
HPI - Chest Pain General: Chief Complaint: Chest Pain Stated Complaint: CP Time Seen by Provider: 11/23/24 21:12 History of Present Illness: 64-year-old male patient with a history of coronary disease. He has a stent in his right coronary placed a couple of years ago. He was sitting at home, watching TV when he developed chest discomfort. Heavy pressure in his chest. He had some shortness of breath and nausea. He took nitroglycerin without relief at home. 3 total. He denies other recent illness. He does state that he has had some significant back pain, and had an MRI and CT myelogram earlier in the week Related Data Home Medications ?Medication ?Instructions ?Recorded ?Confirmed multivitamin 1 tab PO DAILY 06/24/21 10/25/24 Previous Rx's ?Medication ?Instructions ?Recorded aspirin 81 mg tablet,delayed 81 mg PO DAILY #90 tabs 06/24/21 release (Adult Low Dose Aspirin) nitroglycerin 0.4 mg sublingual 0.4 mg sublingual Q5M PRN chest 06/24/21 tablet (Nitrostat) pain #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 meter,continuous #1 ea 02/15/24 (Dexcom G7 Cell Tuber Hand) metformin 1,000 mg tablet See Rx Instructions .Route 06/13/24 .COMPLEX #180 tabs metoprolol succinate 25 mg 12.5 mg (1/2 x 25 mg) PO DAILY #45 06/25/24 tablet,extended release 24 hr tabs nirmatrelvir 300 mg (150 mg See Rx Instructions PO .COMPLEX 06/30/24 x2)-ritonavir 100 mg tablet,dose #30 ea pack (Paxlovid) clopidogrel 75 mg tablet See Rx Instructions .Route 07/01/24 .COMPLEX #90 tabs insulin glargine 100 unit/mL (3 See Rx Instructions .Route 07/25/24 mL) subcutaneous pen (Lantus .COMPLEX #27 mL Solostar U-100 Insulin) atorvastatin 40 mg tablet 40 mg PO DAILY #90 tabs 08/12/24 lisinopril 10 mg tablet See Rx Instructions .Route 09/01/24 .COMPLEX #90 tabs nateglinide 60 mg tablet See Rx Instructions .Route 09/30/24 .COMPLEX #270 tabs blood-glucose sensor (Dexcom G7 #3 ea 10/16/24 Sensor device) tirzepatide 10 mg/0.5 mL 10 mg (0.5 mL) SUBCUT Q7D 1 month 10/22/24 subcutaneous pen injector #2.5 mL (Mounjaro) tirzepatide 5 mg/0.5 mL 5 mg (0.5 mL) SUBCUT Q7D 1 month 10/22/24 subcutaneous pen injector #2.5 mL (Mounjaro) tirzepatide 7.5 mg/0.5 mL 7.5 mg (0.5 mL) SUBCUT Q7D 1 month 10/22/24 subcutaneous pen injector #2.5 mL (Mounjaro) empagliflozin 25 mg tablet See Rx Instructions .Route 11/21/24 (Jardiance) .COMPLEX #60 tabs hydrocodone 5 mg-acetaminophen 325 1 tab PO Q8H PRN pain #7 tabs 11/23/24 mg tablet Allergies Allergy/AdvReac Type Severity Reaction Status Date / Time No Known Allergies Allergy Verified 10/25/24 10:54 [facility] ED PFSH: Medical History History of narcotic addiction Hx MRSA infection Hx of complications due to general anesthesia Cardiac arrest Vfib with lumbar soine surgery CAD (coronary artery disease) Had stent in Coronary artery Acidosis Sleep apnea compliant with Bipap Arthritis DDD (degenerative disc disease) Diabetes mellitus HTN (hypertension) Hyperlipidemia Surgical History History of hydrocelectomy S/P shoulder surgery History of back surgery S/P total knee arthroplasty S/P hernia repair Family History Mother Congestive heart failure (CHF) Stroke Diabetes Hypertension Father , Small cell lung disease FH: CABG (coronary artery bypass surgery) Hypertension Lung disease Other Cancer Social History Smoking and tobacco/nicotine status: never used tobacco/nicotine Second hand smoke exposure: No Alcohol intake: never Substance/Drug Use: never Adopted: No Caregiver/support person: No Lives independently: Yes Household members: spouse Housing: House Marital status: Number of children: 4 Highest education level completed: Some College, No Degree Education level details: 4 yrs electronic service: No Current occupational status: disabled Current gender identity: Male Dara/Anabaptism: Confucianist Agree to transfusion: No Physical Exam Const: GENERAL APPEARANCE: cooperative and anxious; not frail appearing HENMT: COMMON NORMALS: normocephalic, atraumatic and Normal external nose present HEAD & SCALP: normocephalic and atraumatic FACE & SINUS: normal facial exam and face symmetric NOSE: Normal external nose present Eye: COMMON NORMALS: Equal, round and reactive pupils present and EOMs intact bilaterally PUPIL: Yes Equal, round and reactive pupils present Neck/C-Spine: GENERAL: Yes trachea midline Chest: CHEST: Yes Symmetrical chest wall rise Resp: COMMON NORMALS: normal respiratory effort, No retractions, No use of accessory muscles and clear to auscultation bilaterally AUSCULTATION: clear to auscultation bilaterally Cardio: COMMON NORMALS: regular rate and regular rhythm RATE: regular rate RHYTHM: regular rhythm GI: COMMON NORMALS: Normal to inspection, nondistended, normoactive bowel sounds present Extremity: GENERAL: Yes edema (1+) Neuro: FIORELLA COMA SCALE: document GCS findings Fiorella coma scale eye opening: Spontaneous Fiorella coma scale verbal response: Orientated [place] coma scale motor response: Obey commands Fiorella coma scale total score: 15 SENSORY EXAM: Yes extremities (intact) Psych: COMMON NORMALS: speech normal SPEECH: Yes normal speech Skin: COMMON NORMALS: no rashes or lesions noted GENERAL SKIN EXAM: no rashes or lesions noted Course Vital Signs: Vital signs: Vital Signs Temperature 99.6 F 11/23/24 21:01 Pulse Rate 72 11/24/24 00:06 Respiratory Rate 16 11/24/24 00:06 Blood Pressure 125/73 11/24/24 00:06 Pulse Oximetry 96 11/24/24 00:06 Oxygen Delivery Me thod Room Air 11/23/24 22:01 MDM - Chest Pain Medical Decision Making EKG shows a sinus rhythm with a rate of 74, axis is left. No acute ST wave changes. Intervals are normal. CBC is normal. BMP shows a bicarbonate of 17, other findings are not remarkable. Troponin remain normal at 2 hours. Chest x-ray is negative. Chest pain is resolved. He still complaining of back pain. He will be prescribed a short course of pain medication for his back. He is to return for any return of his chest discomfort, as he does have a history. 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 Lab Data 11/23/24 21:24 11/23/24 21:24 Radiology Impressions Chest X-Ray 11/23/24 21:16 IMPRESSION: No acute findings. Laboratory Results WBC 7.22 10^3/uL (3.29-11.43) 11/23/24 21: RBC 5.30 10^6/uL (3.85-5.65) 11/23/24 21:24 Hgb 15.50 g/dL (11.27-16.99) 11/23/24 21:24 Hct 45.7 % (37-53) 11/23/24 21: MCV 86.2 fl (82-101) 11/23/24 21: MCH 29.2 pg (27-33) 11/23/24 21: MCHC 33.9 g/dL (30-55) 11/23/24 21: RDW 12.9 % (12.1-15.1) 11/23/24 21: Plt Count 186 10^3/cmm (157-399) 11/23/24 21: MPV 9.2 fL (7.4-10.4) 11/23/24 21: Neut % (Auto) 62.0 % 11/23/24 21: Lymph % (Auto) 26.3 % 11/23/24 21: [place] % (Auto) 8.4 % 11/23/24 21: Eos % (Auto) 2.6 % 11/23/24: Baso % (Auto) 0.4 % 11/23/24:24 Neut # (Auto) 4.47 10^3/uL (1.8-7.7) 11/23/24 21: Lymph # (Auto) 1.9 10^3/uL (0.8-4.8) 11/23/24: [place] # (Auto) 0.6 10^3/uL (0.2-0.9) 11/23/24 21:24 Eos # (Auto) 0.2 10^3/uL (0.0-0.8) 11/23/24 21: Baso # (Auto) 0.0 10^3/uL (0.0-0.1) 11/23/24 21:24 Nucleated RBC % (auto) 0 % 11/23/24 21:24 Nucleated RBCs # 0.0 /100WBC 11/23/24 21:24 PT 12.30 SECONDS (12.1-14.9) 11/23/24 21:24 INR 0.86 (0.8-1.2) 11/23/24 21:24 APTT 28.8 SECONDS (23.9-36.7) 11/23/24 21:24 Sodium 138 mmol/L (136-145) 11/23/24 21:24 Potassium 4.2 mmol/L (3.5-5.1) 11/23/24 21:24 Chloride 100 mmol/L (98-107) 11/23/24 21:24 Carbon Dioxide 17 mmol/L (22-29) L 11/23/24 21:24 Anion Gap 25.2 (5-19) H 11/23/24 21:24 BUN 18 mg/dL (8-23) 11/23/24 21:24 Creatinine 1.0 mg/dL (0.7-1.2) 11/23/24 21:24 GFR Calculation 74.8 mL/min (90-130) L 11/23/24 21:24 Glucose 176 mg/dL (65-115) H 11/23/24 21:24 Calculated Osmolality 292 mOsm/kg (285-295) 11/23/24 21:24 Calcium 9.4 mg/dL (8.5-10.5) 11/23/24 21:24 Total Bilirubin 0.4 mg/dL (0.15-1.2) 11/23/24 21:24 AST 19 U/L (0-40) 11/23/24 21:24 ALT 17 U/L (0-41) 11/23/24 21:24 Alkaline Phosphatase 75 U/L (40-130) 11/23/24 21:24 Troponin T Baseline 13 ng/L (0-15) 11/23/24 21:24 Troponin T 120 Minute 11.54 ng/L (0-15) 11/23/24 23:11 Delta Troponin T -1.46 ABS# (0-10) L 11/23/24 23:11 NT-Pro-B Natriuret Pep 57 pg/mL (0-125) 11/23/24 21:24 Total Protein 7.6 g/dL (6.6-8.7) 11/23/24 21:24 Albumin 4.4 g/dL (3.5-5.2) 11/23/24 21:24 Globulin 3.2 g/dL (1.3-4.6) 11/23/24 21:24 All radiology interpretation(s) finalized by discharge Discharge Plan Discharge Patient Disposition: Home Clinical Impression: Chest pain DDD (degenerative disc disease), lumbosacral Qualifiers: Disc-related pain type: discogenic back pain and lower extremity pain Qualified Code(s): M51.372 - Other intervertebral disc degeneration, lumbosacral region with discogenic back pain and lower extremity pain Condition: Stable Prescriptions: New hydrocodone-acetaminophen 5-325 mg tablet 1 tab PO Q8H PRN (Reason: pain) Qty: 7 0RF No Action multivitamin Tablet 1 tab PO DAILY nitroglycerin [Nitrostat] 0.4 mg tablet, sublingual 0.4 mg sublingual Q5M PRN (Reason: chest pain) Qty: 25 3RF Rx Instructions: do not exceed 3 doses per episode aspirin [Adult Low Dose Aspirin] 81 mg tablet,delayed release (DR/EC) 81 mg PO DAILY Qty: 90 3RF (DME) Dexcom G7 Cell Tuber Hand Misc See Rx Instructions .Route Qty: 1 0RF Rx Instructions: As directed promethazine [Phenergan] 25 mg/mL solution 25 mg IM ONCE Qty: 1 0RF ketorolac 30 mg/mL solution 60 mg IM ONCE Qty: 2 0RF Paxlovid 300 mg (150 mg x 2)-100 mg tablets,dose pack See Rx Instructions PO .COMPLEX Qty: 30 0RF Rx Instructions: take TWO 150 mg tablets of nirmatrelvir with ONE 100 mg tablet of ritonavir twice daily for 5 days PO Mounjaro 10 mg/0.5 mL pen injector 10 mg SUBCUT Q7D 30 Days Qty: 2.5 0RF Mounjaro 5 mg/0.5 mL pen injector 5 mg SUBCUT Q7D 30 Days Qty: 2.5 0RF Mounjaro 7.5 mg/0.5 mL pen injector 7.5 mg SUBCUT Q7D 30 Days Qty: 2.5 0RF metformin 1,000 mg tablet See Rx Instructions .ROUTE .COMPLEX Qty: 180 1RF Dose Instruction: TAKE ONE TAB BY MOUTH TWICE DAILY Rx Instructions: TAKE ONE TAB BY MOUTH TWICE DAILY metoprolol succinate 25 mg tablet extended release 24 hr 12.5 mg PO DAILY Qty: 45 3RF clopidogrel 75 mg tablet See Rx Instructions .ROUTE .COMPLEX Qty: 90 3RF Dose Instruction: TAKE 1 TABLET BY MOUTH EVERY DAY Rx Instructions: TAKE 1 TABLET BY MOUTH EVERY DAY insulin glargine [Lantus Solostar U-100 Insulin] 100 unit/mL (3 mL) insulin pen See Rx Instructions .ROUTE .COMPLEX Qty: 27 1RF Dose Instruction: INJECT 30 UNITS (0.3ML) SUBCUTANEOUSLY EVERY MORNING Rx Instructions: INJECT 30 UNITS (0.3ML) SUBCUTANEOUSLY EVERY MORNING atorvastatin 40 mg tablet 40 mg PO DAILY Qty: 90 3RF lisinopril 10 mg tablet See Rx Instructions .ROUTE .COMPLEX Qty: 90 1RF Dose Instruction: TAKE 1 TABLET BY MOUTH EVERY DAY Rx Instructions: TAKE 1 TABLET BY MOUTH EVERY DAY nateglinide 60 mg tablet See Rx Instructions .ROUTE .COMPLEX Qty: 270 1RF Dose Instruction: TAKE 2 TABLETS BY MOUTH THREE TIMES DAILY. take before meals Rx Instructions: TAKE 2 TABLETS BY MOUTH THREE TIMES DAILY. take before meals (DME) Dexcom G7 Sensor Device See Rx Instructions .ROUTE .COMPLEX Qty: 3 3RF Dose Instruction: USE DIRECTED Rx Instructions: USE DIRECTED Jardiance 25 mg tablet See Rx Instructions .ROUTE .COMPLEX Qty: 60 3RF Dose Instruction: Take 1 tablet by mouth once daily Rx Instructions: Take 1 tablet by mouth once daily Discharge Orders: Discharge ED (Routine); Ordered 11/23/24 Ordered By: Deondre Agarwal Referrals: Jeni Sifuentes MD [Primary Care Provider, Family Practice] Patient Instructions: Chest Pain (ED), Back Pain (ED), Opioid Safety, Pain Management Activity Restrictions/Additional Instructions: Medication for severe pain to the back. Return for worsening chest discomfort, shortness of breath, vomiting, fever, other concerning symptoms. Call your doctor Monday morning for a follow-up appointment this week. Print Language: Burkinan Coding Level of Care Code ED Curriculum Specialist for Daquan Wilkerson
[2024-11-23 21:33] VITALS: BP 118/68; PULSE 76
[2024-11-23] MEDS: ondansetron 2 mg/ML SDV 2 mL 4 MG IVP (21:33)
[2024-11-23] MEDS: morphine 4 mg/mL SDV 1 mL IVP (21:33)
[2024-11-23] MEDS: nitroglycerin 1 gm/inch oint Pkt 1 INCH TOPICAL (21:33)
[2024-11-23 21:45] LABS: Basophils % 0.4 %; Eosinophils # 0.2 10^3/uL (0.0-0.8); Eosinophils % 2.6 %; Hematocrit 45.7 % (37-53); Lymphocytes # 1.9 10^3/uL (0.8-4.8); Lymphocytes % 26.3 %; Mean Corpuscular HGB Conc 33.9 g/dL (30-55); Mean Corpuscular Hemoglobin 29.2 pg (27-33); Mean Corpuscular Volume 86.2 fl (82-101); Mean Platelet Volume 9.2 fL (7.4-10.4); Monocytes # 0.6 10^3/uL (0.2-0.9); Monocytes % 8.4 %; Neutrophils # 4.47 10^3/uL (1.8-7.7); Nucleated Red Blood Cells % 0 %; Platelet Count 186 10^3/cmm (157-399); Red Cell Distribution Width 12.9 % (12.1-15.1); White Blood Count 7.22 10^3/uL (3.29-11.43)
[2024-11-23 22:00] LABS: INR 0.86 (0.8-1.2)
[2024-11-23 22:01] VITALS: BP 111/79; PULSE 74; RESP 18; O2SAT 99
[2024-11-23 22:01] LABS: Partial Thromboplastin Time 28.8 SECONDS (23.9-36.7)
[2024-11-23 22:10] LABS: Troponin(5th) Baseline 13 ng/L (0-15)
[2024-11-23 22:21] LABS: Alanine Aminotransferase 17 U/L (0-41); Albumin Level 4.4 g/dL (3.5-5.2); Alkaline Phosphatase 75 U/L (40-130); Anion Gap 25.2 (5-19); Aspartate Amino Transferase 19 U/L (0-40); Blood Urea Nitrogen 18 mg/dL (8-23); Calcium 9.4 mg/dL (8.5-10.5); Carbon Dioxide 17 mmol/L (22-29); Chloride 100 mmol/L (98-107); Creatinine Clr Calc Pharmacy 107.1586; Globulin 3.2 g/dL (1.3-4.6); Glomerular Filtration Rate 74.8 mL/min (90-130); Glucose 176 mg/dL (65-115); NT Pro B Type Natriuretic Pept 57 pg/mL (0-125); Osmolality Calculated 292 mOsm/kg (285-295); Potassium 4.2 mmol/L (3.5-5.1); Sodium 138 mmol/L (136-145); Total Bilirubin 0.4 mg/dL (0.15-1.2); Total Protein 7.6 g/dL (6.6-8.7)
[2024-11-23 23:06] VITALS: BP 113/70; PULSE 70; RESP 18; O2SAT 98
[2024-11-23 23:40] LABS: Troponin 5 2HR 11.54 ng/L (0-15)
[2024-11-23 23:41] LABS: Troponin 5 2HR Delta -1.46 ABS# (0-10)
[2024-11-24 00:06] VITALS: BP 125/73; PULSE 72; RESP 16; O2SAT 96
[2024-11-24] MEDS: ketorolac 30 mg/mL INJ IVP (00:06)
[2024-11-24] MEDS: morphine 4 mg/mL SDV 1 mL IVP (00:06)
== END 2024-11-24 00:13 | disposition home or self-care (01) ==
PROVIDERS: Emergency Provider Emergency Medicine; PCP Family Medicine
DX: R07.9 Chest pain, unspecified (principal); M51.372 Other intervertebral disc degeneration, lumbosacral region with discogenic back pain and lower extremity pain; Z79.82 Long term (current) use of aspirin; Z79.02 Long term (current) use of antithrombotics/antiplatelets; I25.10 Atherosclerotic heart disease of native coronary artery without angina pectoris; E11.9 Type 2 diabetes mellitus without complications; I10 Essential (primary) hypertension; E78.5 Hyperlipidemia, unspecified
CPT/HCPCS: 36415; 71045; 80053; 83880; 84484; 85025; 85610; 85730; 93005; 96374; 96375; 96376; 99285; J1885; J2270; J2405; J9999

== ENCOUNTER → 2024-11-26 15:19 | Outpatient (BNVA) | payer MEDICARE, SELFPAY | PROVIDERS: PCP Family Medicine; Visit Provider Internal Medicine | DX: I25.118 Atherosclerotic heart disease of native coronary artery with other forms of angina pectoris (principal); Z09 Encounter for follow-up examination after completed treatment for conditions other than malignant neoplasm; E11.69 Type 2 diabetes mellitus with other specified complication; Z79.84 Long term (current) use of oral hypoglycemic drugs; E78.5 Hyperlipidemia, unspecified; I10 Essential (primary) hypertension; Z79.01 Long term (current) use of anticoagulants; Z79.82 Long term (current) use of aspirin; Z95.5 Presence of coronary angioplasty implant and graft | CPT/HCPCS: 99215 ==

== ENCOUNTER 2024-11-26 17:28 | Observation (INO) | payer MEDICARE, SELFPAY ==
[2024-11-26] VITALS (23 sets, daily range): BP systolic 110–140; BP diastolic 64–85; PULSE 64–168; RESP 11–29; TEMP 36.6–37.1; O2SAT 96–99; BMI 33.7
--- NOTE | 2024-11-26 18:10 | XRR_ITS ---
PROCEDURE INFORMATION: Exam: XR Chest Exam date and time: 11/26/2024 6:33 PM Age: 64 years old Clinical indication: Pain; Angina pectoris; Prior surgery; Surgery date: 6+ months; Surgery type: Cardiac stents; Additional info: Chest pain TECHNIQUE: Imaging protocol: Radiologic exam of the chest. Views: 1 view. COMPARISON: CR (CHEST, ) 11/23/2024 9:22 PM FINDINGS: Lungs: Unremarkable. No consolidation. Pleural spaces: Unremarkable. No pleural effusion. No pneumothorax. Heart/Mediastinum: Unremarkable. No cardiomegaly. Bones/joints: Degenerative changes in the thoracic spine. XR/XR chest 1V portable [id number] IMPRESSION: No acute findings.
--- NOTE | 2024-11-26 18:14 | ECG_ITS ---
[facility] Test Date: 2024-11-26 Pat Name: Larry Rangel Department: Room: 112 Gender: Male Scrap Picker: : [id number] Requested By: Matty Arellano Order Number: [id number] Linda MD: Faizan Poe M.D. Measurements Intervals [place] Rate: 69 P: -49 AK: 268 QRS: -41 QRSD: 98 T: 39 QT: 405 QTc: 434 Interpretive Statements SINUS RHYTHM WITH FIRST DEGREE AV BLOCK LEFT AXIS DEVIATION [QRS AXIS < -30] PATTERN CONSISTENT WITH PULMONARY DISEASE Compared to ECG 11/26/2024 18:31:30 No significant changes Electronically Signed On 11-27-2024 17:43:12 CDT by Faizan Poe M.D. [id number]
--- NOTE | 2024-11-26 18:16 | P.HP_ITS ---
Providers/Chief Complaint 2 Admitting Physician: Matty Arellano M.D Primary Care Provider: Jeni Sifuentes MD Chief Complaint: unstable angina History of Present Illness Larry Rangel is a 64 year old male with past medical history of coronary artery disease, diabetes, hypertension was directly admitted from hospital as has been having worsening shortness of breath and chest pain for the last 2 months. Symptoms have worsened in the last week. Had 2 visits to the emergency room. EKG obtained and not showing acute ACS. Review of Systems 2 General: Reports: 10 or more systems reviewed and unremarkable except in HPI and below Card: Reports: chest pain, lightheadedness, dyspnea on exertion, orthopnea and leg pain with exertion; Denies: palpitations, irregular heart rhythm, edema, swelling of feet/ankles, syncope or pre-syncope Resp: Denies: dyspnea, productive cough or non-productive cough Musc: Reports: extremity pain; Denies: extremity swelling Medications/Allergies Home Medications ?Medication ?Instructions ?Recorded ?Confirmed ?Last Taken ?Type aspirin 81 mg tablet,delayed 81 mg PO DAILY #90 tabs 1 08/25/20 11/27/24 11/26/24 Rx release (Adult Low Dose Aspirin) multivitamin 1 tab PO DAILY 06/24/21 05/02/1411/26/24 History nitroglycerin 0.4 mg sublingual 0.4 mg sublingual Q5M PRN chest 06/24/21 11/27/24 Unknown Rx tablet (Nitrostat) pain #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 meter,continuous #1 ea 02/15/24 11/27/24 Unknown Rx (Dexcom G7 Automation/Controls Manager) metoprolol succinate 25 mg 12.5 mg (1/2 x 25 mg) PO DA GAIL #45 06/25/24 11/27/24 11/26/24 Rx tablet,extended release 24 hr tabs atorvastatin 40 mg tablet 40 mg PO DAILY #90 tabs 07/2511/27/24 11/26/24 Rx blood-glucose sensor (Dexcom G7 #3 ea 10/16/24 5 Unknown Rx Sensor device) tirzepatide 5 mg/0.5 mL 5 mg (0.5 mL) SUBCUT Q7D 1 m onth 10/22/24 11/27/24 11/24/24 Rx subcutaneous pen injector #2.5 mL (Mounjaro) tirzepatide 7.5 mg/0.5 mL 7.5 mg (0.5 mL) SUBCUT Q7D 1 month 10/22/24 11/27/24 Unknown Rx subcutaneous pen injector #2.5 mL (Mounjaro) hydrocodone 5 mg-acetaminophen 325 1 tab PO Q8H PRN pa in #7 tabs 11/23/24 11/27/24 Unknown Rx mg tablet clopidogrel 75 mg tablet 75 mg PO DAILY 11/27/2402/1411/26/24 History empagliflozin 25 mg tablet 25 mg PO DAILY 11/27/2402/1411/26/24 History (Jardiance) lisinopril 10 mg tablet 10 mg PO DAILY 11/27/2402/1411/26/24 History metformin 1,000 mg tablet 1,000 mg PO BID 11/27/2402/1411/26/24 History nateglinide 60 mg tablet 120 mg PO TID PRN blood suga r 11/27/24 11/27/24 Unknown History Allergies Allergy/AdvReac Type Severity Reaction Status Date / Time No Known Allergies Allergy Verified 11/26/24 16:00 PFSH Acute 2 PFSH: Medical History History of narcotic addiction Hx MRSA infection Hx of complications due to general anesthesia Cardiac arrest Vfib with lumbar soine surgery CAD (coronary artery disease) Had stent in Coronary artery Acidosis Sleep apnea compliant with Bipap Arthritis DDD (degenerative disc disease) Diabetes mellitus HTN (hypertension) Hyperlipidemia Surgical History History of hydrocelectomy S/P shoulder surgery History of back surgery S/P total knee arthroplasty S/P hernia repair Family History Mother Congestive heart failure (CHF) Stroke Diabetes Hypertension Father , Small cell lung disease FH: CABG (coronary artery bypass surgery) Hypertension Lung disease Other Cancer Social History Smoking and tobacco/nicotine status: never used tobacco/nicotine Second hand smoke exposure: No Alcohol intake: never Substance/Drug Use: never Adopted: No Caregiver/support person: No Lives independently: Yes Household members: spouse Housing: House Marital status: Number of children: 4 Highest education level completed: Some College, No Degree Education level details: 4 yrs electronic service: No Current occupational status: disabled Current gender identity: Male Dara/Holiness: Jain Agree to transfusion: No Physical Exam 2 Narrative: GENERAL: Patient is alert, awake and oriented x3. [] NECK: No jugular vein distension. [] HEENT: No cyanosis. No icterus. No pallor. [] HEART: Regular S1 and S2. Grade 2/6 systolic murmur LUNGS: Clear to auscultate bilaterally. [] CENTRAL NERVOUS SYSTEM: Grossly nonfocal. [] EXTREMITIES: Lower extremities with 1+ edema bilaterally. Data 11/26/24 19:55 11/27/24 02:08 A&P Assessment and plan (1) Worsening angina: (2) CAD (coronary artery disease): (3) Hyperlipidemia: (4) HTN (hypertension): (5) Diabetes mellitus: Plan Patient has been having worsening chest pain symptoms. He had recent ER visits. Symptoms are worrisome for unstable angina. Patient admitted directly from the clinic for left heart catheter tomorrow. We will trend troponins. Continue aspirin and Plavix. N.p.o. past midnight. Will start anticoagulation with Lovenox. Ordering echocardiogram PDMP PDMP Reviewed: Not Reviewed Attestations 2 Medical Necessity Statement*: Care expected to cross 2 midnights. Coding Level of Care Code Acute Code for [facility] Fwd Diagnoses Worsening angina I20.0 Coronary artery disease involving [place] coronary artery of [place] heart without angina pectoris I25.10 Coronary Disease-Associated Artery/Lesion type: [place] artery [place] vs. transplanted heart: [place] heart Associated angina: without angina Hyperlipidemia E78.5 Primary hypertension I10 Hypertension type: primary hypertension Type 2 diabetes mellitus with other specified complication, without long-term current use of insulin E11.69 Diabetes mellitus type: type 2 Diabetes mellitus alf insulin use: without terminal supervisor use Diabetes mellitus complication status: with other specified complication
[2024-11-26] MEDS: nitroglycerin 1 gm/inch oint Pkt 0.5 INCH TOPICAL (19:33)
[2024-11-26] MEDS: enoxaparin 150 mg/mL Syringe 130 MG SUBCUT (19:34)
[2024-11-26] MEDS: atorvastatin 40 mg Tablet PO (20:06)
[2024-11-26 20:13] LABS: Basophils % 0.5 %; Eosinophils # 0.2 10^3/uL (0.0-0.8); Eosinophils % 2.9 %; Lymphocytes # 1.8 10^3/uL (0.8-4.8); Lymphocytes % 22.3 %; Mean Corpuscular HGB Conc 32.1 g/dL (30-55); Mean Corpuscular Hemoglobin 29.2 pg (27-33); Mean Corpuscular Volume 90.9 fl (82-101); Mean Platelet Volume 9.1 fL (7.4-10.4); Monocytes # 0.8 10^3/uL (0.2-0.9); Monocytes % 9.6 %; Neutrophils # 5.09 10^3/uL (1.8-7.7); Neutrophils % 64.4 %; Nucleated Red Blood Cells % 0 %; Platelet Count 191 10^3/cmm (157-399); Red Blood Count 5.28 10^6/uL (3.85-5.65)
--- NOTE | 2024-11-26 20:14 | ECG_ITS ---
[facility] [employer] Test Date: 2024-11-26 Pat Name: Larry Rangel Department: Room: 112 Gender: Male Bobbin Stripper: : 1960 Requested By: Matty Arellano Order Number: [id number] Linda MD: Faizan Poe M.D. Measurements Intervals [place] Rate: 77 P: 69 [place]: 304 QRS: -30 QRSD: 98 T: 28 QT: 368 QTc: 417 Interpretive Statements SINUS RHYTHM WITH FIRST DEGREE AV BLOCK BORDERLINE LEFT AXIS DEVIATION [QRS AXIS < -20] Compared to ECG 11/23/2024 21:05:13 No significant changes Electronically Signed On 11-27-2024 23:38:01 CDT by Faizan Poe M.D. [email or web address]
[2024-11-26 20:37] LABS: Troponin(5th) Baseline 11 ng/L (0-15)
[2024-11-26 20:55] LABS: Alanine Aminotransferase 21 U/L (0-41); Albumin Level 4.3 g/dL (3.5-5.2); Alkaline Phosphatase 77 U/L (40-130); Anion Gap 23.1 (5-19); Aspartate Amino Transferase 22 U/L (0-40); Blood Urea Nitrogen 17 mg/dL (8-23); Calcium 9.4 mg/dL (8.5-10.5); Carbon Dioxide 17 mmol/L (22-29); Chloride 100 mmol/L (98-107); Creatinine Clr Calc Pharmacy 98.2645; Globulin 3.8 g/dL (1.3-4.6); Glucose 95 mg/dL (65-115); Osmolality Calculated 283 mOsm/kg (285-295); Potassium 4.1 mmol/L (3.5-5.1); Sodium 136 mmol/L (136-145); Total Bilirubin 0.5 mg/dL (0.15-1.2); Total Protein 8.1 g/dL (6.6-8.7)
[2024-11-26 21:56] LABS: Troponin 5 2HR 11.35 ng/L (0-15); Troponin 5 2HR Delta 0.35 ABS# (0-10)
[2024-11-26] MEDS: trazodone 50 mg Tablet PO (22:12)
[2024-11-26] MEDS: lanolin oint 7 gm 1 APPLIC TOPICAL (22:12)
[2024-11-27] VITALS (50 sets, daily range): BP systolic 100–137; BP diastolic 59–75; PULSE 52–75; RESP 3–21; TEMP 36.4–36.7; O2SAT 93–99
--- NOTE | 2024-11-27 00:14 | ECG_ITS ---
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 Measurements Intervals [place] Rate: 74 P: 200 CO: 185 QRS: -44 QRSD: 90 T: 44 QT: 394 QTc: 439 Interpretive Statements SINUS RHYTHM LEFT AXIS DEVIATION [QRS AXIS < -30] PATTERN CONSISTENT WITH PULMONARY DISEASE Compared to ECG 11/26/2024 23:08:13 First degree AV block no longer present Electronically Signed On 11-27-2024 23:36:51 CDT by Faizan Poe M.D. [email or web address]
[2024-11-27] MEDS: nitroglycerin 1 gm/inch oint Pkt 0.5 INCH TOPICAL (01:24)
[2024-11-27 03:07] LABS: Troponin 5 6HR 13.84 ng/L (0-15); Troponin 5 6HR Delta 2.84 ng/L (0-12)
[2024-11-27 03:14] LABS: Anion Gap 17.5 (5-19); Blood Urea Nitrogen 18 mg/dL (8-23); Calcium 9.4 mg/dL (8.5-10.5); Carbon Dioxide 24 mmol/L (22-29); Chloride 103 mmol/L (98-107); Creatinine Clr Calc Pharmacy 98.2645; Glucose 128 mg/dL (65-115); Osmolality Calculated 294 mOsm/kg (285-295); Potassium 4.5 mmol/L (3.5-5.1); Sodium 140 mmol/L (136-145)
--- NOTE | 2024-11-27 05:20 | XACV_ITS ---
Exam Room: [facility] Ht: 196 cm Wt: 142 kg BSA: 2.82 m2 Gender: Male : 1960 Any Known Allergies: No known allergies Exam Priority: Routine Procedure(s): Procedure Description: Diagnostic procedure Procedure Description: Left Heart Catheterization Procedure Description: Coronary Angiography Diagnostic Cath Status: Elective Diagnostic Findings * INDICATION: Worsening angina. * Left Main has no significant disease. * Left Anterior Descending has no significant disease. * Proximal Right Coronary Artery: mild to moderate 40% stenosis, VICTORIANO: 3 flow. * Circumflex has no significant disease. * Coronary angiography shows right dominance. Conclusions 1. Non-obstructive coronary artery disease. Elevated LVEDP. Recommendations * Obtain echocardiogram. Needs diuresis. * Outpatient cardiology follow up in 2 weeks. Interventional RX Recommendation: medical therapy and/or counseling Diagnostic RX Recommendation: medical therapy and/or counseling Pressures Phase:Rest AO : 107 / 79 ( 94 ) @ 7:35:00 AM 118 / 81 ( 100 ) @ 7:46:00 AM 135 / 71 ( 98 ) @ 7:52:00 AM 133 / 72 ( 97 ) @ 7:52:00 AM LV : 135 / -2 / 24 @ 7:52:00 AM 135 / -2 / 24 @ 7:52:00 AM Valves Phase:DefaultPhase AV : 0.0 @ 6:59:17 AM AV Mean Gradient: 0.0 @ 6:59:17 AM Clinical Evaluation EBL: 5mL-10mL Procedural Details Procedure Consent Obtained. Current Diagnosis : Chest Pain. Pre-Procedure Time Out. Identified patient by full name and date of as verbalized by the patient/guarantor. Does the consent match the physician's order: Yes. Accurate & Complete Informed Consent: Yes. Inpatient/Outpatient History & Physical on Chart: Yes. If H&P is completed, is and addenduem needed: No; If yes, is the addendum complete: N/A. Visualize and Verify Site with Patient/Guarantor: N/A. Relevant Radiology Images available: Yes. Pre-op teaching completed and patient verbalized understanding. The risks, benefits, and alternatives of sedation and/or procedure were discussed by physician. The patient agrees to continue. Procedure started. [facility] Clinical Fraility Score: 3: Managing Well. 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 Chest Pain Symptom Assessment: Typical Angina Symptoms. Correct patient, site and procedure confirmed by cath team. Current diagnosis: Chest Pain. PERRLA. Strong, equal hand subassembler bilaterally. Lungs clear x 5 lobes. IV Fluids: 0.9% NaCl at KVO. 0 mL infused prior to dental lab technician. Oxygen started at 2liters/min via nasal canula. right groin was prepped with chloroprep then draped in the usual sterile fashion. right radial was prepped with chloroprep then draped in the usual sterile fashion. A 20 gauge IV was started in the right forearm using aseptic technique. Baseline sample Acquired. HR: 44 BPM. Physician arrived. Pre Procedural Pulses: right radial was 2+. Physician scrubbed in. Immediate Pre-Procedure Time Out. Correct Patient: Yes; Correct Procedure: Yes; Correct Site: Yes; Correct Patient Position: Yes; Correct Supplies: Yes; Dried Flammable Prep: Yes; Blood Products Available: N/A;. Lidocaine 1% infiltrated to the right radial. Arterial access obtained. A 5 swiss TIG catheter in over wire. Multiple views taken of left coronary artery. Catheter redirected to the RCA. Catheter removed over the exchange wire. A 5 swiss JR4 catheter in over wire. Multiple views taken of right coronary artery. Catheter removed over the exchange wire. A 5 swiss 3DRC catheter in over wire. Catheter removed over the exchange wire. A 6 swiss AL1 catheter in over wire. Catheter removed over the exchange wire. Multiple views taken of right coronary artery. EDP Sample taken: LV 135/-3,24; HR: 66 BPM; SpO2: 95%. Pullback taken: LV 135/-3,24; AO 135/71(98); Mean: 0mmHg, Peak to Peak: 0mmHg, SEP: 7sec/min; HR: 68 BPM; SpO2: 95%. Catheter removed over the exchange wire. A TR Band was successful obtaining hemostatsis at the Right Radial artery insertion site. Post Procedure: Pulses reassessed and unchanged. PERRLA. Strong, equal hand subassembler bilaterally. No VTE prophylaxis required. Medication's Wasted: Lidocaine 1% = 18 mL. Medication's Wasted: Nitro = 49.8 mg. Medication's Wasted: Heparin = 1000 units. Medication's Wasted: Other = Versed 1 mg. Total IV fluids: 30 mL. Post-op diagnosis: Non-obstrictive CAD. Complications: None. Vital chart was stopped. Estimated blood loss: 5mL-10mL. Responsiveness - Normal response to verbal stimuli; alert and oriented, PERRLA. Airway - Unaffected, no intervention required; spontaneous ventilation. Circulation: W/N/L, pulses unchanged. Nausea/Vomiting: No. Procedure completed. Patient transferred by bed to 1st floor. Access Site Site: Right Radial artery Sheath Size: 6 Fr Hemostasis Method: TR Band Hemostasis Success: Successful Procedure Medications Start: 6:26 AM Stop: 6:26 AM Medication: Versed 1 mg and Fentanyl 25 mcg Amount: 1 Route: I.V. Start: 6:20 AM Stop: 6:20 AM Medication: Versed 1 mg and Fentanyl 25 mcg Amount: 1 Route: I.V. Start: 6:30 AM Stop: 6:30 AM Medication: Fentanyl Amount: 25 mcg Route: I.V. Start: 6:30 AM Stop: 6:30 AM Medication: Nitrogylcerin Amount: 200 mcg Route: I.A. Start: 6:33 AM Stop: 6:33 AM Medication: Heparin Amount: 5000 units Route: I.V. Start: 6:38 AM Stop: 6:38 AM Medication: Fentanyl Amount: 25 mcg Route: I.V. Start: 6:47 AM Stop: 6:47 AM Medication: Versed Amount: 1 mg Route: I.V. I, the attending physician, have reviewed and verified all procedure medications. Yes, all medications given per verbal order History/Risk Factors Hypertension: Yes Dyslipidemia: No Peripheral Arterial Disease (PAD): No Myocardial Infarction ([place]): No Obesity: No Renal Disease: No Tobacco Use: Never Prior Interventions PCI: Yes CABG: No Valve Surgery: No Date of PCI: 08/03/2021 Report Signatures Finalized by Matty Arellano MD on 12/02/2024 10:25 AM
[2024-11-27] MEDS: aspirin 325 mg Tablet PO (05:35)
[2024-11-27] MEDS: sodium chloride 0.9% 1,000 ML 50 ML IV (05:35)
[2024-11-27] MEDS: diphenhydrAMINE 50 mg Capsule PO (05:35)
--- NOTE | 2024-11-27 06:16 | USCV_ITS ---
Larry Rangel Age: 64 Gender: M : 1960 Exam Date: 11/27/2024 09:22 Ordering Phys: Matty Arellano M.D ([email or web address]) Technologist: [place] [facility] [place]: cp murmur BP: / HR: 93 Rhythm: Sinus Technical Quality: Adequate MEASUREMENTS (Male / Female) Normal Values 2D ECHO LV Diastolic Diameter PLAX 4.6 cm 4.2 - 5.9 / 3.9 - 5.3 cm IVS Diastolic Thickness 1.6 cm 0.6 - 1.0 / 0.6 - 0.9 cm IVS Systolic Thickness 1.8 cm LVPW Diastolic Thickness 1.4 cm 0.6 - 1.0 / 0.6 - 0.9 cm LVPW Systolic Thickness 2.0 cm LVOT Diameter 1.9 cm LV Ejection Fraction 2D Teich 70.1 % LV Ejection Fraction MOD 4C 70.8 % LV Ejection Fraction MOD 2C 75.7 % LV Ejection Fraction 2C AL 76.0 % LA Diameter 3.3 cm RA Systolic Volume 4C AL 57.6 ml RA Systolic Volume 4C MOD 56.1 ml Aorta at Sinotubular Diameter 3.7 cm M-MODE LA Ao Ratio MM 1.1 AV Cusp Separation MM 1.4 cm DOPPLER AV Peak Velocity 144.0 cm/s LVOT Peak Velocity 106.0 cm/s AV Area Cont Eq vti 1.9 cm squared AV Area Cont Eq pk 2.2 cm squared MV Peak Velocity 98.0 cm/s MV Area PHT 2.9 cm squared Mitral E to A Ratio 689.0 TV Peak Velocity 134.0 cm/s TR Peak Velocity 146.0 cm/s TR Peak Gradient 8.5 mmHg TV Peak E Velocity 120.0 cm/s PV Peak Velocity 95.0 cm/s FINDINGS Left Ventricle Left ventricle is normal in size. Moderate left ventricular hypertrophy. LV systolic function is normal with EF of 60-65%. No regional wall motion abnormalities are seen. Diastolic dysfunction. Right Ventricle Normal in size and function Right Atrium Normal in size Left Atrium Normal in size Mitral Valve Moderate mitral annular calcification. Trace mitral regurgitation. Aortic Valve Aortic valve is thickened. No significant stenosis. Mild aortic regurgitation. Tricuspid Valve Mild tricuspid regurgitation. Insufficient TR jet to calculate RVSP. Pulmonic Valve Not well visualized Pericardium Normal Aorta Ascending aorta is mildly dilated with diameter of 3.73cm IVC Not well visualized. CONCLUSIONS LV systolic function is normal with EF of 60-65% Moderate left ventricular hypertrophy. Diastolic dysfunction noted Trace mitral regurgitation Mild aortic regurgitation Mild tricuspid regurgitation Ascending aorta is mildly dilated with diameter of 3.73cm No comparison studies are available. Matty Arellano MD (Electronically Signed) Final Date: 27 Nov 2024 10:23 S
--- NOTE | 2024-11-27 06:17 | W.PM.OPSUD ---
Surgery/Procedure H&P Update DATE OF PROCEDURE: November 27, 2024 DATE H&P PERFORMED: 11/26/24 H&P UPDATE INFORMATION: I have reviewed H&P completed within last 30 days, I have examined patient prior to procedure and No changes to prior documentation PREOP DIAGNOSIS: Worsening/unstable angina PRIMARY INDICATION FOR PROCEDURE: Worsening/unstable angina PLANNED PROCEDURE: Operation Date: 11/27/24 06:00 Proposed Procedures p Cardiac Catheterization(Left) - Matty Arellano M.D Possible percutaneous coronary intervention PATIENT REASSESSED PRIOR TO SEDATION, WITH NO CHANGE NOTED: Yes PHYSICAL EXAM: alert, oriented x 3, clear to auscultation bilaterally and regular rate & rhythm AIRWAY EVAL/ANESTHESIA PLAN: normal airway, ASA III, Local Anesthesia, Risks, benefits & alternatives of sedation and/or procedure discussed and Patient agrees to continue as planned ADDITIONAL INFORMATION: Moderate sedation
--- NOTE | 2024-11-27 07:04 | PM.PROC ---
Procedure Note: Date of procedure: 11/27/24 Pre-procedure diagnosis: Worsening/ unstable angina Post-procedure diagnosis: other (Non-obstructive coronary artery disease/Patent prior stent) Procedure: Left main, LAD, LCx patent. RCA has mild to moderate luminal irregularities. Patent prior PDA stent. Elevated EDP Continue current cardiac meds. Obtain echo. EDP is elevated. Will need diuresis. Performing Provider: Matty Arellano Complications: None Condition: stable Disposition: floor Coding Level of Care Code Acute Code for Daquan Wilkerson
[2024-11-27] MEDS: clopidogrel 75 mg Tablet PO (08:37)
[2024-11-27] MEDS: aspirin 81 mg EC Tablet PO (08:38)
--- NOTE | 2024-11-27 11:30 | P.DS_ITS ---
<Statement entered by Matty Arellano M.D - 12/06/24 09:36> Patient was cared for in conjunction with an advanced practice practitioner.? I reviewed the chart and all pertinent data including imaging, telemetry, and laboratory results.? I discussed the patient in detail with the advanced practice practitioner.? Please see? their note for complete progress note, testing results and agreed upon plan of care for the patient. Discharge Providers Date of Admission: 11/26/24 17:28 Date of Discharge: November 27, 2024 Attending Provider at Admission: Matty Arellano M.D Attending Provider at Discharge: Matty Arellano M.D Primary Care Provider: Jeni Sifuentes MD Diagnoses at Discharge Discharge Diagnosis (1) Worsening angina: Status: Acute (2) CAD (coronary artery disease): Status: Acute Qualifiers: Associated angina: without angina Coronary Disease-Associated Artery/Lesion type: wiyot artery [place] vs. 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 Symptoms have worsened in the last week. Had 2 visits to the emergency room. EKG obtained and not showing acute ACS. Hospital Course Hospital Course Patient went for coronary angiogram this morning, finding patent left main, LAD, left circumflex with mild to moderate luminal irregularity of the RCA and patent previously placed PDA stent. His LVEDP was elevated, will plan to discharge today, adding Lasix 20 mg twice a day which can be adjusted based on how well he has diuresed. Echocardiogram from 11/26/2024 shows LVEF 60 to 65% moderate LVH and diastolic dysfunction. Mild aortic regurgitation, mild tricuspid regurgitation. No complications with right radial cath site. Will plan for BMP in 1 week and follow-up with cardiology CAR FRAMER. If diuresis does not improve shortness of breath, we will plan for CT of the chest as an outpatient. Physical Exam Const: COMMON NORMALS: no acute distress and patient oriented x3 GENERAL APPEARANCE: cooperative ORIENTATION/CONSCIOUSNESS: Yes awake, Yes oriented to person, Yes oriented to place and Yes oriented to time Chest: COMMONS NORMALS: normal inspection of the chest and normal palpation of entire chest wall CHEST: Yes Symmetrical chest wall rise Resp: COMMON NORMALS: normal respiratory effort, No retractions, No use of accessory muscles and clear to auscultation bilaterally AUSCULTATION: clear to auscultation bilaterally Cardio: COMMON NORMALS: regular rate, regular rhythm, S1 normal heart sound present, S2 normal heart sound present, No gallops present (Cardio), No clicks present (Cardio), No murmurs present (Cardio) and No rub (Cardio) RATE: regular rate RHYTHM: regular rhythm HEART SOUNDS: S1 normal heart sound present and S2 normal heart sound present PERIPHERAL PULSES: radial pulses present positive right 2+ and femoral pulses present positive right 2+ Neuro: COMMON NORMALS: patient oriented x3 and moves all extremities SENSORIUM/ORIENTATION: Yes oriented to person, Yes oriented to place and Yes oriented to time Skin: WOUNDS: Yes surgical site (no hematoma palpable) Details: no odor Discharge Data Studies Completed and Pending Completed Studies During Hospitalization Category Date Time Status XR chest 1V portable [id number] Routine Exams 11/26/24 18:10 Completed CV. 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 Laboratory Results WBC 7.90 10^3/uL (3.29-11.43) 11/26/24 19:55 RBC 5.28 10^6/uL (3.85-5.65) 11/26/24 19:55 Hgb 15.40 g/dL (11.27-16.99) 11/26/24 19:55 Hct 48.0 % (37-53) 11/26/24 19:55 MCV 90.9 fl (82-101) 11/26/24 19:55 MCH 29.2 pg (27-33) 11/26/24 19:55 MCHC 32.1 g/dL (30-55) 11/26/24 19:55 RDW 13.0 % (12.1-15.1) 11/26/24 19:55 Plt Count 191 10^3/cmm (157-399) 11/26/24 19:55 MPV 9.1 fL (7.4-10.4) 11/26/24 19:55 Neut % (Auto) 64.4 % 11/26/24 19:55 Lymph % (Auto) 22.3 % 11/26/24 19:55 Will % (Auto) 9.6 % 11/26/24 19:55 Eos % (Auto) 2.9 % 11/26/24 19:55 Baso % (Auto) 0.5 % 11/26/24 19:55 Neut # (Auto) 5.09 10^3/uL (1.8-7.7) 11/26/24 19:55 Lymph # (Auto) 1.8 10^3/uL (0.8-4.8) 11/26/24 19:55 Will # (Auto) 0.8 10^3/uL (0.2-0.9) 11/26/24 19:55 Eos # (Auto) 0.2 10^3/uL (0.0-0.8) 11/26/24 19:55 Baso # (Auto) 0.0 10^3/uL (0.0-0.1) 11/26/24 19:55 Nucleated RBC % (auto) 0 % 11/26/24 19:55 Nucleated RBCs # 0.0 /100WBC 11/26/24 19:55 Sodium 140 mmol/L (136-145) 11/27/24 02:08 Potassium 4.5 mmol/L (3.5-5.1) 11/27/24 02:08 Chloride 103 mmol/L (98-107) 11/27/24 02:08 Carbon Dioxide 24 mmol/L (22-29) 11/27/24 02:08 Anion Gap 17.5 (5-19) 11/27/24 02:08 BUN 18 mg/dL (8-23) 11/27/24 02:08 Creatinine 1.1 mg/dL (0.7-1.2) 11/27/24 02:08 GFR Calculation 67.0 mL/min (90-130) L 11/27/24 02:08 Glucose 128 mg/dL (65-115) H 11/27/24 02:08 Calculated Osmolality 294 mOsm/kg (285-295) 11/27/24 02:08 Calcium 9.4 mg/dL (8.5-10.5) 11/27/24 02:08 Total Bilirubin 0.5 mg/dL (0.15-1.2) 11/26/24 19:55 AST 22 U/L (0-40) 11/26/24 19:55 ALT 21 U/L (0-41) 11/26/24 19:55 Alkaline Phosphatase 77 U/L (40-130) 11/26/24 19:55 Troponin T Baseline 11 ng/L (0-15) 11/26/24 19:55 Troponin T 120 Minute 11.35 ng/L (0-15) 11/26/24 21:33 Delta Troponin T 0.35 ABS# (0-10) 11/26/24 21:33 Troponin T Hi Sens 6Hr 13.84 ng/L (0-15) 11/27/24 02:08 Troponin T Hi Sens 6Hr Delta 2.84 ng/L (0-12) 11/27/24 02:08 Total Protein 8.1 g/dL (6.6-8.7) 11/26/24 19:55 Albumin 4.3 g/dL (3.5-5.2) 11/26/24 19:55 Globulin 3.8 g/dL (1.3-4.6) 11/26/24 19:55 Vitals Last Vital Signs Temp 97.5 F L 11/27/24 07:19 Pulse 67 11/27/24 07:19 Resp 16 11/27/24 07:19 BP 120/69 11/27/24 07:19 Pulse Ox 93 11/27/24 07:19 O2 Del Method Room Air 11/27/24 07:19 Discharge Plan Discharge Patient Disposition: Home Condition: Stable Prescriptions: New furosemide 20 mg tablet 20 mg PO BID Qty: 60 1RF Continued multivitamin Tablet 1 tab PO DAILY nitroglycerin [Nitrostat] 0.4 mg tablet, sublingual 0.4 mg sublingual Q5M PRN (Reason: chest pain) Qty: 25 3RF Rx Instructions: do not exceed 3 doses per episode aspirin [Adult Low Dose Aspirin] 81 mg tablet,delayed release (DR/EC) 81 mg PO DAILY Qty: 90 3RF (DME) Dexcom G7 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 See Rx Instructions .Route Qty: 1 0RF Rx Instructions: As directed Mounjaro 5 mg/0.5 mL pen injector 5 mg SUBCUT Q7D 30 Days Qty: 2.5 0RF Mounjaro 7.5 mg/0.5 mL pen injector 7.5 mg SUBCUT Q7D 30 Days Qty: 2.5 0RF metoprolol succinate 25 mg tablet extended release 24 hr 12.5 mg PO DAILY Qty: 45 3RF atorvastatin 40 mg tablet 40 mg PO DAILY Qty: 90 3RF (DME) Dexcom G7 Sensor Device See Rx Instructions .ROUTE .COMPLEX Qty: 3 3RF Dose Instruction: USE DIRECTED Rx Instructions: USE DIRECTED hydrocodone-acetaminophen 5-325 mg tablet 1 tab PO Q8H PRN (Reason: pain) Qty: 7 0RF clopidogrel 75 mg tablet 75 mg PO DAILY nateglinide 60 mg tablet 120 mg PO TID PRN (Reason: blood sugar) metformin 1,000 mg tablet 1,000 mg PO BID lisinopril 10 mg tablet 10 mg PO DAILY Jardiance 25 mg tablet 25 mg PO DAILY Discharge Orders: Discharge Order (Routine); Ordered 11/27/24 Ordered By: Sarah Concepcion Referrals: Hoa Land NP [Nurse Practitioner, Cardiology] - 12/11/24 1:00 pm Discharge Diet: Advance as tolerated Discharge Activity: Resume usual activity Patient Instructions: Furosemide (By mouth) (Lasix), Heart Catheterization (DC) Activity Restrictions/Additional Instructions: No lifting with right arm for 4 days. Print Language: Estonian Discharge Attestations Time Spent in Discharge Care*: less than 30 min Quality Metrics Clinical Quality Measures [ No reported AMI, CVA or VTE this stay] Coding Level of Care Code Acute Code for Chg Fwd Diagnoses Worsening angina I20.0 Coronary artery disease involving wiyot coronary artery of wiyot heart without angina pectoris I25.10 Associated angina: without angina Coronary Disease-Associated Artery/Lesion type: wiyot artery [place] vs. transplanted heart: wiyot heart Hyperlipidemia E78.5 Primary hypertension I10 Hypertension type: primary hypertension Type 2 diabetes mellitus with other specified complication, without long-term current use of insulin E11.69 Diabetes mellitus complication status: with other specified complication Diabetes mellitus fdc insulin use: without fdc use Diabetes mellitus type: type 2
== END 2024-11-27 12:45 | disposition home or self-care (01) ==
PROVIDERS: Admitting Provider Internal Medicine; PCP Family Medicine; Visit Provider Internal Medicine
DX: I25.119 Atherosclerotic heart disease of native coronary artery with unspecified angina pectoris (principal); E78.5 Hyperlipidemia, unspecified; I10 Essential (primary) hypertension; E11.69 Type 2 diabetes mellitus with other specified complication; Z79.82 Long term (current) use of aspirin; Z79.84 Long term (current) use of oral hypoglycemic drugs; Z95.5 Presence of coronary angioplasty implant and graft; Z86.14 Personal history of Methicillin resistant Staphylococcus aureus infection; F15.11 Other stimulant abuse, in remission; Z82.49 Family history of ischemic heart disease and other diseases of the circulatory system; G47.30 Sleep apnea, unspecified
CPT/HCPCS: 36415; 71045; 80048; 80053; 84484; 85025; 93005; 93306; 93458; 96372; 96374; 99152; 99153; C1769; C1887; C1894; G0378; G0379; J1644; J1650; J2250; J3010; J3490; J7030; J9999; Q0163; Q9967

== ENCOUNTER → 2024-12-11 13:40 | Outpatient (BNVA) | payer MEDICARE, SELFPAY | PROVIDERS: PCP Family Medicine; Referring Provider Internal Medicine; Visit Provider Nurse Practitioner Family | DX: I25.10 Atherosclerotic heart disease of native coronary artery without angina pectoris (principal); I10 Essential (primary) hypertension; E78.5 Hyperlipidemia, unspecified; Z95.5 Presence of coronary angioplasty implant and graft | CPT/HCPCS: 99214 ==

== ENCOUNTER → 2024-12-13 09:54 | Outpatient (BNVA) | payer MEDICARE, SELFPAY | PROVIDERS: PCP Family Medicine; Visit Provider Nurse Practitioner Family | DX: I25.10 Atherosclerotic heart disease of native coronary artery without angina pectoris (principal); I10 Essential (primary) hypertension; E78.5 Hyperlipidemia, unspecified | CPT/HCPCS: 80048; 83880 ==

== ENCOUNTER 2025-01-01 07:32 | Outpatient (CLI) | payer MEDICARE, SELFPAY ==
--- NOTE | 2025-01-01 08:00 | MR_ITS ---
WS: [id number] MRI CERVICAL SPINE NONCONTRAST TECHNIQUE: Sagittal T1, T2 and STIR imaging. Axial T2, gradient, and fiesta imaging. CLINICAL INFORMATION: M50.00 - Cervical disc disorder with myelopathy, unspecif... COMPARISON: None. FINDINGS: Straightening of the normal cervical doses. Moderate spondylitic changes. Anterior hypertrophic changes. C2-C3: Disc osteophyte complex. Moderate facet arthropathy. Mild LEFT bony foraminal narrowing. Mild central canal stenosis. C3-C4: Disc osteophyte complex with impingement on the LEFT ventral cervical cord with moderate central canal stenosis. Moderate to severe LEFT and moderate RIGHT bony foraminal narrowing. Moderate facet arthropathy. C4-C5: Mild disc osteophyte complex. Mild to moderate RIGHT bony foraminal narrowing. Moderate facet arthropathy. C5-C6: Disc osteophyte complex eccentric to the RIGHT. Mild central canal stenosis. Severe RIGHT and moderate LEFT bony foraminal narrowing. Uncovertebral joint hypertrophy. Moderate facet arthropathy. C6-C7: Disc osteophyte complex with endplate ridging. Uncovertebral joint hypertrophy. Moderate to severe RIGHT and moderate LEFT bony foraminal narrowing. C7-T1: Mild bilateral bony foraminal narrowing. Spinal canal is patent. Visualized brain stem structures: Normal. Prevertebral soft tissues: Normal. Partially visualized incidental Phuc cisterna magna. MR/MR cervical spin wo con* [id number] IMPRESSION: 1. Straightening of the normal cervical doses with moderate spondylitic change s. 2. Disc osteophyte complex with moderate central canal stenosis C3-4 indentati on and slight flattening LEFT ventral cervical cord. 3. Mild central canal stenosis C5-6. 4. Moderate to severe bony foraminal narrowing worse at LEFT C3-4, RIGHT C5-6, and bilateral C6-7 worse on the RIGHT.
== END 2025-01-01 07:33 | disposition home or self-care (01) ==
PROVIDERS: PCP Family Medicine; Visit Provider Nurse Practitioner Family
DX: M50.01 Cervical disc disorder with myelopathy, high cervical region (principal); M25.78 Osteophyte, vertebrae; M48.02 Spinal stenosis, cervical region; R51.9 Headache, unspecified
CPT/HCPCS: 72141

== ENCOUNTER 2025-02-12 08:13 | Outpatient (CLI) | payer MEDICARE, SELFPAY ==
--- NOTE | 2025-02-12 08:45 | MR_ITS ---
WS: [id number] MRI THORACIC SPINE WITHOUT CONTRAST TECHNIQUE: Sagittal T1, T2 and STIR imaging. Axial T2 imaging. Noncontrast imaging obtained. CLINICAL INFORMATION: M54.14 - Radiculopathy, thoracic region COMPARISON: None. FINDINGS: Mild thoracic kyphosis. No acute compression. Mild anterior hypertrophic changes thoracic spine. No significant disc extrusions or protrusions. Cord signal is normal. Moderate facet arthropathy lower thoracic spine. Mild LEFT greater than RIGHT T10-11 bony foraminal narrowing. Adrenal glands are normal. Small LEFT renal cyst. Small esophageal hiatal hernia. Normal caliber descending thoracic aorta. MR/MR thoracic spin wo con* [id number] IMPRESSION: 1. Mild LEFT greater than RIGHT T10-11 bony foraminal narrowing. 2. Moderate facet arthropathy lower thoracic spine. 3. Mild thoracic kyphosis and thoracic curve.
== END 2025-02-12 08:14 | disposition home or self-care (01) ==
LOC: RAD 08:13
PROVIDERS: PCP Family Medicine; Visit Provider Nurse Practitioner Family
DX: M54.14 Radiculopathy, thoracic region (principal); M47.814 Spondylosis without myelopathy or radiculopathy, thoracic region; M40.204 Unspecified kyphosis, thoracic region
CPT/HCPCS: 72146

== ENCOUNTER → 2025-03-10 12:19 | Outpatient (BNVA) | payer MEDICARE, SELFPAY | PROVIDERS: PCP Family Medicine; Visit Provider Internal Medicine | DX: I25.10 Atherosclerotic heart disease of native coronary artery without angina pectoris (principal); I10 Essential (primary) hypertension; E11.9 Type 2 diabetes mellitus without complications; E78.5 Hyperlipidemia, unspecified; Z79.84 Long term (current) use of oral hypoglycemic drugs | CPT/HCPCS: 99214 ==

== ENCOUNTER → 2025-03-11 08:31 | Outpatient (BNVA) | payer MEDICARE, SELFPAY | PROVIDERS: PCP Family Medicine; Visit Provider Internal Medicine | DX: E11.69 Type 2 diabetes mellitus with other specified complication (principal); E78.5 Hyperlipidemia, unspecified | CPT/HCPCS: 99214 ==

== ENCOUNTER 2025-03-12 14:16 | Outpatient (CLI) | payer MEDICARE, SELFPAY ==
--- NOTE | 2025-03-12 14:24 | XR_ITS ---
WS: [id number] SCREENING DEXA SCAN [employer] CLINICAL INFORMATION: AGE RELATED OSTEOPOROSIS W/O CURRENT PATHOLOGICAL FX COMPARISON: None. FINDINGS: The LEFT forearm bone mineral density measures 1.196. This corresponds to a T score score of 2.1 and Z score of 2.7. Left femoral neck bone mineral density measures 1.062 g/cm2. This corresponds to a T score of -0.3 and Z score of -0.1. Right femoral neck bone mineral density measures 1.023 g/cm2. This corresponds to a T score -0.5of and Z score of -0.4. Mean femoral neck bone mineral density measures 1.043 g/cm2. This corresponds to a T score of -0.4 and Z score of -0.3. XR/XR DEXA axial skeleton* [id number] IMPRESSION: Normal bone mineralization. Patient's FRAX calculated 10 year probability for major osteoporotic fracture i s 11.6% and osteoporotic hip fracture is 1.1%.
== END 2025-03-12 14:17 | disposition home or self-care (01) ==
PROVIDERS: PCP Family Medicine; Visit Provider Internal Medicine
DX: Z13.820 Encounter for screening for osteoporosis (principal); M81.0 Age-related osteoporosis without current pathological fracture
CPT/HCPCS: 77080

== ENCOUNTER 2025-03-17 15:33 | Outpatient (CLI) | payer MEDICARE, SELFPAY ==
--- NOTE | 2025-03-17 15:49 | CT_ITS ---
WS: [id number] CT CERVICAL SPINE TECHNIQUE: Noncontrast CT of the cervical spine with coronal and sagittal reformatted images. CLINICAL INFORMATION: CERVICAL DISC DISORDER WITH RADICULOPATHY, CERVICAL STENOSIS COMPARISON: MRI 01/01/2025 DLP: 473.[address] scans at [facility] use at least one of these dose optimization techniques: automated exposure control; mA and/or kV adjustment per patient size (includes targeted exams where dose is matched to clinical indication); or iterative reconstruction. FINDINGS: Straightening of the normal cervical lordosis. 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 Moderate central canal stenosis at this level. Moderate spondylitic changes. Disc space narrowing worse at C3-C4 C5-C6 and C6-C7. Anterior hypertrophic changes. C2-C3: Ossification of the posterior longitudinal ligament. Mild to moderate central canal stenosis. Slight contact of the cervical cord. C3-C4: Disc osteophyte complex. Ossification the PLL posterior to C3. Moderate central canal stenosis. Posterior projecting osteophyte. Moderate to severe bilateral bony foraminal narrowing worse on the LEFT. Moderate facet arthropathy. C4-C5: Disc osteophyte complex with endplate ridging. Mild central canal stenosis. Mild RIGHT foraminal narrowing. Moderate facet arthropathy. C5-C6: Disc osteophyte complex with mild central canal stenosis. Severe RIGHT bony foraminal narrowing. Moderate facet arthropathy. Uncovertebral joint hypertrophy C6-C7: Disc osteophyte complex with mild central canal stenosis. Moderate RIGHT bony foraminal narrowing. Moderate facet arthropathy. C7-T1: Mild disc osteophyte complex. Mild bilateral foraminal narrowing. Spinal canal appears patent. Visualized posterior nasopharynx: Normal. Prevertebral soft tissues: Normal. CT/CT cervical spin wo con* [id number] IMPRESSION: 1. Straightening of the normal cervical lordosis. 2. Moderate central canal stenosis C3-4 with indentation on the LEFT ventral c ervical cord. 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 Mild to moderate central canal stenosis C2-3. 3. Multilevel bony foraminal narrowing described above. 4. Otherwise mild central canal stenosis C4-C5 and C5-C6.
== END 2025-03-17 15:34 | disposition home or self-care (01) ==
LOC: RAD 15:34
PROVIDERS: PCP Family Medicine; Visit Provider Neurological Surgery
DX: M48.02 Spinal stenosis, cervical region (principal); M50.10 Cervical disc disorder with radiculopathy, unspecified cervical region
CPT/HCPCS: 72125

== ENCOUNTER → 2025-05-28 09:29 | Outpatient (BNVA) | payer MEDICARE, SELFPAY | PROVIDERS: PCP Family Medicine; Visit Provider Nurse Practitioner Family | DX: E11.69 Type 2 diabetes mellitus with other specified complication (principal); E78.5 Hyperlipidemia, unspecified | CPT/HCPCS: 80053; 80061; 82043; 83036 ==

== ENCOUNTER 2025-06-25 12:28 | Inpatient (IN) | payer MEDICARE, SELFPAY ==
[2025-06-25] VITALS (10 sets, daily range): BP systolic 110–147; BP diastolic 64–82; PULSE 37–64; RESP 14–22; TEMP 36.2; O2SAT 94–100; BMI 31.4
--- NOTE | 2025-06-25 12:50 | ECG_ITS ---
[facility]25[facility]25 Pat Name: Larry Rangel Department: Room: Gender: Male Audiovisual Tech: : 1960 Requested By: Martin Bush Order Number: [id number] Linda MD: Faizan Poe M.D. Measurements Intervals [place] Rate: 55 P: 0 ID: 0 QRS: -27 QRSD: 91 T: 9 QT: 413 QTc: 396 Interpretive Statements sinus rhythm with third-degree AV block and junctional escape BORDERLINE LEFT AXIS DEVIATION [QRS AXIS < -20] LOW QRS VOLTAGE IN PRECORDIAL LEADS [QRS DEFLECTION < 1.0 mV IN CHEST LEADS] ABNORMAL RHYTHM ECG Compared to ECG 11/27/2024 03:34:25 Low QRS voltage now present Sinus rhythm no longer present Electronically Signed On 06-25-2025 23:49:47 SENIOR RESEARCH ASSOCIATE by Faizan Poe M.D. [email or web address]
--- OUTSIDE RECORDS SUMMARY | 2025-06-25 13:01 | XMS_ITS | Encounter Summary ---
Author Organization [facility] Address [address] [place] [address] Care Team Providers Care Canvas Cutter Name Role Phone Unavailable Primary Care Provider Unavailabl e Encounter Details Date Type Department Care Team (Late st Contact Info) Description 06/24/2025 External Device Data [place] ABSTRACTION Provider, Abstract NO ADDRESS ON FILE Social History Tobacco Use Types Packs/Day Years Used Date Smoking Tobacco: Never Passive Smoke Exposure: Never Smokeless Tobacco: Never Alcohol Use Standard Drinks/Week Comments Not Currently 0 (1 standard drink = 0.6 oz pur e alcohol) Financial Resource Strain Answer Date R ecorded How hard is it for you to pa y for the very basics like food, housing, medical care, and heating? Not hard at all 07/01/2022 Food Insecurity Answer Date Recorded In the past 12 months, have you worried that your food would run out before you had money to buy more? Never true 07/01/2022 In the past 12 months, did y ou run out of food and didn't have money to buy more? Never true 07/01/2022 Transportation Needs Answer Date Record ed In the past 12 months, has l ack of transportation kept you from medical appointments or from getting medications? No 07/01/2022 Lack of Transportation (Non-Medical) Not on file 07/01/2022 Feeling Safe Answer Date Recorded Are you in a relationship wi th someone who hurts you emotionally and/or physically? 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
--- OUTSIDE RECORDS SUMMARY | 2025-06-25 13:02 | XMS_ITS | Encounter Summary ---
Author Organization [facility] Address [address] [place] [address] Care Team Providers Care Plisse Machine Operator Name Role Phone Arden Fitzgerald MD Primary Care Provider [phone] Encounter Details Date Type Department Care Team (Late st Contact Info) Description 10/12/2012 Ancillary Orders [facility] General Laboratory Services [address] [place] [id number] Larry Danielle MD [address] [place] [id number] Social History Tobacco Use Types Packs/Day Years Used Date Smoking Tobacco: Never Assessed Sex and Gender Information Value Date Recorded Sex Assigned at Not on file 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
--- OUTSIDE RECORDS SUMMARY | 2025-06-25 13:02 | XMS_ITS | Encounter Summary ---
Author Organization [facility] Address [address] [facility] [place] [address] Care Team Providers Care Metalsmith Apprentice Name Role Phone Arden Fitzgerald MD Primary Care Provider [phone] Encounter Details Date Type Department Care Team (Late st Contact Info) Description 10/12/2012 Ancillary Orders [facility] General Laboratory Services [address] [place] [address] Larry Danielle MD [address] [place] [address] Social History Tobacco Use Types Packs/Day Years Used Date Smoking Tobacco: Never Assessed Sex and Gender Information Value Date Recorded Sex Assigned at Not on file 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
--- OUTSIDE RECORDS SUMMARY | 2025-06-25 13:02 | XMS_ITS | Clinical Summary ---
Author Organization [facility] Building [address] [place] [address] Care Team Providers Care Stripper And Opaquer Apprentice Name Role Phone Fan Bauer MD Unavailable Matty Arellano MD Unavailable [phone] Jeni Sifuentes MD Primary Care Provider [phone] Allergies Active Allergy Reactions Criticality Noted Date Comments Methocarbamol Itching Low 04/19/2025 Itching around mouth, neck, arms Medications Jardiance 25 mg tablet Take 1 tablet (25 mg total) by mouth every morning 2 Active lisinopriL (PRINIVIL,ZESTR IL) 10 mg tablet Take 1 tablet (10 mg total) by mouth every morning Active clopidogreL (PLAVIX) 75 mg tabletIndicatio ns:stent Take 1 tablet (75 mg total) by mouth every morning 2 Active metFORMIN (GLUCOPHAGE) 1,000 mg tablet Take 1 tablet (1,000 mg total) by mouth 2 (two) times a day with meals 1 Active atorvastatin (LIPITOR) 40 mg tablet Take 1 tablet (40 mg total) by mouth daily Active aspirin 81 mg enteric coated tabletIndicatio ns:Pain Take 1 tablet (81 mg total) by mouth every morning 0 Active blood-glucose sensor device 5 Active blood-glucose,r eceiver,cont misc 4 Active multivitamin-mi nerals-lutein (Multivitamin 50 Plus) tablet Take 1 tablet by mouth every morning 1 Active Mounjaro 15 mg/0.5 mL pen injector injection Inject 0.5 mL (15 mg total) under the skin once a week 5 Active nitroglycerin (NITROSTAT) 0.[address] 1 tablet (0.4 mg total) under the tongue 1 Active furosemide (LASIX) 20 mg tablet Take 1 tablet (20 mg total) by mouth every morning Active Dexcom G7 Sensor device as directed 5 Active diazePAM (VALIUM) 5 mg tablet Take 1 tablet (5 mg total) by mouth 3 (three) times a day 90 tablet 5 Active cyclobenzaprine (FLEXERIL) 5 mg tablet Take 1 tablet (5 mg total) by mouth 3 (three) times a day as needed for muscle spasms 30 tablet 5 Active polyethylene glycol (MIRALAX) 17 gram/dose bulk powderIndicatio ns:constipation Take 17 g by mouth daily 0 5 Active senna-docusate (PERICOLACE) 8.6-50 mgIndications:c onstipation Take 2 tablets by mouth 2 (two) times a day 0 5 Active tamsulosin (FLOMAX) 0.4 mg extended release capsule Take 1 capsule (0.4 mg total) by mouth daily with dinner 30 capsule 5 Active cholecalciferol (VITAMIN D-3) 10631 unit tablet Take 1 tablet (50,000 Units total) by mouth once a week for 8 doses 8 tablet 5 06/03/20 25 Active Problems Problem Noted Date Diagnosed Date Post-op pain 04/20/2025 Assessment & Plan (04/20/2025 8:36 AM CDT): As expected post surgical intervention --Pain managed with scheduled Tylenol, Valium; PRN Flexeril, Oxycodone 2nd degree AV block 04/20/2025 Assessment & Plan (04/20/2025 11:52 AM CDT): New onset #2:1 AVB #Janaekebach #Blocked PACs SIXTO on CPAP, Obesity --Symptomatic bradycardia 30s-40s with feeling of blacking out , EKG showed 2nd degree AV block --Cardiology c/s recs Stop metoprolol, minimize narcs, atropine at bedside, VBG to evaluate for daytime hypercarbia c/w OHS, continue telemetry monitoring, will need Holter on discharge 04/20 Pt asymptomatic, stable on tele. BP 105/68, HR 78. Cardiology cleared for home pt to follow up with his home Project Management Advisor outpatient. Pt stated she will obtain holter monitor for pt. Myeloradiculopathy 03/04/2025 Assessment & Plan (04/20/2025 11:53 AM CDT): --s/p surgical intervention on 04/20, closed with db, drains x 1 --Reports improvement in preoperative pain --Post-op x-rays completed 04/20 --therapy recommendations home --Patient will follow up with Dr. Cummins outpatient Cervical spinal stenosis 03/04/2025 CAD (coronary atherosclerotic disease) 3 Hyponatremia 08/23/2022 Status post total left knee replacement 04/17/20 20 Anemia 09/24/2019 Dyslipidemia 09/24/2019 Essential hypertension 09/24/2019 Assessment & Plan (04/20/2025 8:53 AM CDT): Hx of: --Continue Lisinopril, Lasix --Stopped Metoprolol 04/19 per Cardiology First degree AV block 09/24/2019 Obstructive sleep apnea 09/24/2019 Bilateral primary osteoarthritis of knee 020 Chronic pain syndrome 09/03/2019 Type 2 diabetes mellitus wit hout complication, without long-term current use of insulin 09/03/2019 Assessment & Plan (04/20/2025 11:54 AM CDT): Hx of: Home regimen: Mounjaro, Metformin, Jardiance --Hgb A1C 6.6 on 04/10 --Monitor daily blood glucose throughout hospitalization --Ok to start SSI and POCT ACHS when needed --CC diet --Pt to follow up with PCP outpatient. Lumbar stenosis 11/29/2017 Disc disease, degenerative, lumbar or lumbosacra l 10/02/2017 Overview (10/23/2024): Added automatically from request for surgery [id number] Neural foraminal stenosis of lumbosacral spine 0 10/02/2017 Overview (10/23/2024): Added automatically from request for surgery [id number] Encounters Date Type Department Care Team Description 06/11/2025 Orders Only [facility] Medicine Neurosurgery [address] [facility] 6[address] [place] [address] [place] [phone] Iam Cummins MD Chronic pain syndrome (Primary Dx); Degeneration of intervertebral disc of lumbosacral region with discogenic back pain and lower extremity pain; Spinal stenosis of lumbar region, unspecified whether neurogenic claudication present; Neural foraminal stenosis of lumbosacral spine; Intervertebral disc disorder with radiculopathy of lumbar region; S/P lumbar spinal fusion 06/03/2025 2:45 PM JOURNALISM PROFESSOR Office Visit [facility] Medicine Neurosurgery [address] [place] [address] Building [address] [place] [address] Iam Cummins MD Cervical disc disorder with radiculopathy of cervical region (Primary Dx) 06/03/2025 1:54 PM JOURNALISM PROFESSOR - 06/03/2025 11:59 PM JOURNALISM PROFESSOR Hospital Encounter [id number] [address] [place] [address] [address] [place] [phone] Cervical disc disorder with radiculopathy of cervical region; Cervical stenosis of spinal canal Discharge Disposition: Discharge to home or self care 06/03/2025 Orders Only [facility] Medicine Neurosurgery [address] [place] [address] Office Building [address] [place] [address] Iam Cummins MD Cervical disc disorder with radiculopathy of cervical region (Primary Dx); Cervical stenosis of spinal canal 06/03/2025 Orders Only [facility] Medicine Neurosurgery [address] [facility] Building 4 [address] [place] [phone] Iam Cummins MD Cervical disc disorder with radiculopathy of cervical region (Primary Dx); Cervical stenosis of spinal canal 06/03/2025 [facility] Medicine Neurosurgery [address] [facility] Building 4 [address] [place] [phone] Iam Cummins MD Cervical disc disorder with radiculopathy of cervical region (Primary Dx); Cervical stenosis of spinal canal 05/21/2025 Orders Only [facility] Medicine Neurosurgery [address] [facility] [address]th [place] [address] [place] [phone] Iam Cummins MD S/P spinal fusion (Primary Dx) 05/16/2025 Orders Only [facility] Neurosurgery [address] [facility] Building 4 [address] [place] [address] Iam Cummins MD Cervical disc disorder with radiculopathy of cervical region (Primary Dx); Cervical stenosis of spinal canal 04/18/2025 8:00 AM CDT - 04/18/2025 11:20 AM CDT Surgery [facility] Operating Room [address] [place] [phone] Iam Cummins MD FUSION CERVICAL ANTERIOR DISCECTOMY WITH INSTRUMENTATION C3-4 anterior cervical discectomy and fusion with cell saver and right C5-6 foraminotomy 04/18/2025 7:40 AM CDT Anesthesia Event [facility] Operating Room [address] [place] [phone] Jg Barroso MD Harkins, Cherice Lynette, NP 04/18/2025 6:01 AM CDT - 04/20/2025 4:33 PM CDT Hospital Encounter [address] [phone] Iam Cummins MD Myeloradiculopathy (Primary Dx) Discharge Disposition: Discharge to home or self care 04/14/2025 Orders Only [facility] Medicine Neurosurgery [address] [facility] Medical Office Building 4 [address] [place] [phone] Iam Cummins MD 04/10/2025 2:48 PM CDT - 04/10/2025 11:59 PM CDT Hospital Encounter [facility] [address] [place] [address] Discharge Disposition: Discharge to home or self care 04/10/2025 1:30 PM CDT Office Visit [facility] Pre-Anesthesia Testing [address] [place] [address] Preoperative testing (Primary Dx); Type 2 diabetes mellitus without complication, without long-term current use of insulin (HCC) 04/10/2025 1:[address] [facility] [address] [place] [address] Myeloradiculopathy; Cervical spinal stenosis; Vitamin D deficiency; Elevated clotting time; Preoperative testing; Type 2 diabetes mellitus without complication, without long-term current use of insulin (HCC) from Last 3 Months Immunizations Immunization Administration Dates Next Due Influenza, Quadrivalent, Spl it, Preservative Free, Intramuscular 05/10/2023,05/03/2022,07/07/2021,05/04,07/31/2019,05/18/2017 Influenza, Trivalent, High D ose, Split, Preservative Free, Intramuscular 05/08/2024 Influenza, Trivalent, IM (MDV) 05/31/2022 Influenza, Trivalent, Preser vative Free, Intramuscular 05/19/2016,05/12/2015 Pneumococcal Conjugate Pcv20 08/08/2023 ZOSTER Recombinant 10/23/2023,08/08/2023 Surgical History Surgery Date Site/Laterality Comments HIP ARTHROSCOPY W/ LABRAL REPAIR 07/24/2002 - 07/23/2003 Left LUMBAR LAMINECTOMY 07/24/2002 - 07/23/2003 L4-5 LUMBAR FUSION 07/24/2004 - 07/23/2005 L4-5 Medical History Medical History Date Comments First degree AV block Essential hypertension Dyslipidemia CAD (coronary atherosclerotic disease) Type 2 diabetes mellitus wit hout complication, without long-term current use of insulin (HCC) Hyponatremia Anemia Status post total left knee replacement Bilateral primary osteoarthritis of knee Neural foraminal stenosis of lumbosacral spine Disc disease, degenerative, lumbar or lumbosacra l Chronic pain syndrome Obstructive sleep apnea Family History Medical History Relation Name Comments Heart disease Brother Hypertension Brother Cancer Father Heart disease Father Hypertension Father Diabetes Mother Heart disease Mother Hypertension Mother Stroke Mother Anesthesia problems Neg Hx Relation Name Status Comments Brother Father Mother Social History Tobacco Use Types Packs/Day Years Used Date Smoking Tobacco: Never Smokeless Tobacco: Never Tobacco Cessation:Counseling Given: No Alcohol Use Standard Drinks/Week Comments Never 0 (1 standard drink = 0.6 oz pur e alcohol) AUDIT-C Answer Date Recorded Q1: How often do you have a drink containing alcohol? Never 04/18/2025 Q2: How many drinks containi ng alcohol do you have on a typical day when you are drinking? Patient does not drink Frequency of Binge Drinking Not on file 03/25 Personal Safety Answer Date Recorded Have you ever been in or are you currently in a harmful physical or emotional relationship or is someone making you feel afraid or unsafe? Denies 04/18/2025 Sex and Gender Information Value Date Recorded Sex Assigned at Not on file Legal Sex Male 11:58 AM CDT Gender Identity Male 10/17/2024 10:27 AM CDT Sexual Orientation Not on file Occupation Industry Job Start Date Job End Date SSI Disability Not on file 07/24/2004 Not on file Last Filed Vital Signs Vital Sign Reading Time Taken Comments Blood Pressure 114/68 04/20/2025 2:00 PM CDT Pulse 73 04/20/2025 3:47 PM CDT Temperature 36.7 C (98 F) 04/20/2025 10:18 AM CDT Respiratory Rate 21 04/20/2025 3:47 PM CDT Oxygen Saturation 97% 04/20/2025 3:47 PM CDT Inhaled Oxygen Concentration - - Weight 120.2 kg (265 lb) 06/03/2025 2:50 PM JOURNALISM PROFESSOR Height 193 cm (6' 4 ) 06/03/2025 2:50 PM JOURNALISM PROFESSOR Body Mass Index 32.26 06/03/2025 2:50 PM JOURNALISM PROFESSOR Plan of Treatment Health Maintenance Due Date Last Done Comments Albumin Creatinine Ratio, Urine 1958 Colon Cancer Screening-Colonoscopy 1958 Depression Screening 1958 Hepatitis C Screening 1958 Prostate Cancer Screening-PSA 1958 Dilated Eye Exam 1958 Foot Exam 1958 DTaP/Tdap/Td Vaccine (1 - Tdap) 1969 Hepatitis B Screening 1976 Lipid Panel 11/13/2021 11/13/2020 Well Visit 65+ 2023 Covid-19 Vaccine (7 - 2024-2 6 season) 2025 06/21/2023, 06/21/2023, 06/23/2022, Additional history exists Influenza Vaccine (#1) 2025 , 05/10/2023, 05/31/2022, Additional history exists Hemoglobin A1C 10/08/2025 04/10/2025, 07/04/2022 eGFR 04/19/2026 04/19/2025, 04/10/2025 Fall Risk Assessment 04/20/2026 04/20/2025, 02/11/20 25 Pneumococcal vaccine 65+ Completed 08/08/2023 Zoster Vaccine Completed 10/23/2023, 08/08/2023 Medical Devices Implanted Type Area Meteorology Faculty Member Device Identifier Shelf Expiration Date Model / Serial / Lot [employer] Graft Bone Filler Peptide Enhanced Syr I Factor 1cc Putty 700-010 - [id number] Implanted:Qty: 1 on 04/18/2025 by Iam Cummins MD at [facility] [employer] [id number] 02/20/2027 7 00-010 / / [id number] [employer] Cage Spinal Cervical 6 Degree Acif Large Endoskeleton Tcs Nanolock 1h42n70oh Titanium [id number] - [id number] Implanted:Qty: 1 on 04/18/2025 by Iam Cummins MD at [facility] [employer] [id number] 10/31/2029 53 86-1607-[id number] / / [id number] [employer] Screw Spinal Anterior Cervical Self Drilling Solid Zevo 3.5x17mm Titanium [id number] - [id number] Implanted:Qty: 1 on 04/18/2025 by Iam Cummins MD at [facility] [employer] [id number] / / [employer] Screw Spinal Anterior Cervical Self Drilling Double Thread Solid Zevo 4.0x19mm Titanium [id number] - [id number] Implanted:Qty: 2 on 04/18/2025 by Iam Cummins MD at [facility] [employer] [id number] / / [employer] Screw Spinal Anterior Cervical Self Drilling Solid Zevo 4.0x17mm Titanium [id number] - [id number] Implanted:Qty: 1 on 04/18/2025 by Iam Cummins MD at [facility] [employer] [id number] / / [employer] Plate Spine Anterior Cervical Level 1 Zevo 17mm Titanium [id number] - [id number] Implanted:Qty: 1 on 04/18/2025 by Iam Cummins MD at [facility] [employer] [id number] / / Procedures Procedure Name Priority Date/Time Associated Diagnosis Comments XR SPINE CERVICAL 2 OR 3 VIEWS Schedule Routine, Read Routine (OP Routine) 06/03/2025 2:12 PM JOURNALISM PROFESSOR Cervical disc disorder with radiculopathy of cervical region Cervical stenosis of spinal canal XR SPINE CERVICAL 2 OR 3 VIEWS IP Routine 04/20/2025 12:06 PM CDT EGFR Routine 04/19/2025 10:35 PM CDT BASIC METABOLIC PANEL Routine 04/19/2025 10:35 PM CDT CBC WITHOUT DIFFERENTIAL Routine 04/19/2025 10:35 PM CDT BLOOD GAS, VENOUS STAT 04/19/2025 1:3 1 PM CDT ECG 12-LEAD Routine 04/19/2025 10:41 AM CDT ECG 12-LEAD Routine 04/19/2025 10:35 AM CDT ECG 12-LEAD STAT 04/19/2025 8:35 AM CDT POCT GLUCOSE DEVICE Routine 04/18/2025 2 :29 PM CDT FL FLUOROSCOPY < 1 HOUR IP Routine 04/18/2025 2:19 PM CDT POCT GLUCOSE DEVICE Routine 04/18/2025 11:56 AM CDT POCT GLUCOSE DEVICE Routine 04/18/2025 9 :37 AM CDT ANESTHESIA INTUBATION Routine 04/18/2025 9:11 AM CDT SPINAL CORD MONITORING 04/18/2025 7:40 AM CDT Myeloradiculopathy Cervical spinal stenosis Case Notes 03/10/25 Message sent to office staff to complete missing pathology field. -DMF FUSION CERVICAL ANTERIOR DISCECTOMY WITH INSTRUMENTATION 04/18/2025 7:40 AM CDT Myeloradiculopathy Cervical spinal stenosis Case Notes 03/10/25 Message sent to office staff to complete missing pathology field. -DMF POCT GLUCOSE DEVICE Routine 04/18/2025 6 :[address] CERVICAL SPINE WO CONTRAST ED Urgent/IP Urgent 04/18/2025 6:28 AM CDT EGFR Routine 04/10/2025 2:56 PM CDT Myeloradiculopathy Cervical spinal stenosis VITAMIN D 25 HYDROXY Routine 04/10/2025 2:56 PM CDT Myeloradiculopathy Cervical spinal stenosis DIFFERENTIAL AUTO Routine 04/10/2025 2:5 6 PM CDT Myeloradiculopathy Cervical spinal stenosis HEMOGLOBIN A1C Routine 04/10/2025 2:56 PM CDT Preoperative testing Type 2 diabetes mellitus without complication, without long-term current use of insulin (HCC) APTT Routine 04/10/2025 2:56 PM CDT Myeloradiculopathy Cervical spinal stenosis Elevated clotting time PROTIME-INR Routine 04/10/2025 2:56 PM CDT Myeloradiculopathy Cervical spinal stenosis Elevated clotting time CBC WITH AUTO DIFFERENTIAL Routine 04/10/2025 2:56 PM CDT Myeloradiculopathy Cervical spinal stenosis BASIC METABOLIC PANEL Routine 04/10/2025 2:56 PM CDT Myeloradiculopathy Cervical spinal stenosis URINALYSIS AND REFLEX TO MICROSCOPIC AND CULTURE Routine 04/10/2025 2:56 PM CDT Myeloradiculopathy Cervical spinal stenosis from Last 3 Months Results * XR Spine Cervical 2 or 3 Views (06/03/2025 2:12 PM JOURNALISM PROFESSOR) Anatomical Region Laterality Modality Spine N/A Computed Radiogr aphy 06/03/2025 2:16 PM JOURNALISM PROFESSOR Impressions 06/03/2025 2:16 PM JOURNALISM PROFESSOR 1. Unchanged anterior cervical discectomy and instrumented fusion of C3-C4 Electronically signed by: Zoltan Marie MD Narrative 06/03/2025 2:16 PM JOURNALISM PROFESSOR EXAMINATION: XR SPINE CERVICAL 2 OR 3 VIEWS HISTORY: neck pain COMPARISON: 04/20/2025 FINDINGS: Anterior cervical discectomy and instrumented fusion from C3-C4. Hardware is intact. Bilateral carotid artery calcifications are present. Multilevel degenerative changes including including degenerative disc disease and facet osteoarthritis noted throughout the unfused cervical spine, greatest and moderate at C5-C6 Procedure Note Zoltan Marie MD - 06/03/2025 EXAMINATION: XR SPINE CERVICAL 2 OR 3 VIEWS HISTORY: neck pain COMPARISON: 04/20/2025 FINDINGS: Anterior cervical discectomy and instrumented fusion from C3-C4. Hardware is intact. Bilateral carotid artery calcifications are present. Multilevel degenerative changes including including degenerative disc disease and facet osteoarthritis noted throughout the unfused cervical spine, greatest and moderate at C5-C6 IMPRESSION: 1. Unchanged anterior cervical discectomy and instrumented fusion of C3-C4 Electronically signed by: Zoltan Marie MD Iam Cummins MD IMG XR PROCEDURES Final Re sult * XR Spine Cervical 2 or 3 Views (04/20/2025 12:06 PM CDT) Anatomical Region Laterality Modality Spine N/A Computed Radiogr aphy 04/20/2025 12:4 6 PM CDT Impressions 04/20/2025 12:46 PM CDT 1. Interval C3-C4 anterior cervical discectomy and instrumented fusion Electronically signed by: Santy Charles MD, PHD Narrative 04/20/2025 12:46 PM CDT EXAMINATION: Cervical spine 2 or 3 views HISTORY: Cervical spondylosis FINDINGS: 2 view examination cervical spine is compared to prior radiographs from 10/23/[address] examination 04/18/2025. There has been interval C3-C4 anterior cervical discectomy and instrumented fusion. Moderate multilevel subaxial cervical degenerative disease is unchanged of the unfused levels. 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 Soft tissue swelling and gas and surgical drain are present. There is no acute fracture. Procedure Note Santy Charles MD PhD - 04/20/2025 EXAMINATION: Cervical spine 2 or 3 views HISTORY: Cervical spondylosis FINDINGS: 2 view examination cervical spine is compared to prior radiographs from 10/23/[address] examination 04/18/2025. There has been interval C3-C4 anterior cervical discectomy and instrumented fusion. Moderate multilevel subaxial cervical degenerative disease is unchanged of the unfused levels. 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 Soft tissue swelling and gas and surgical drain are present. There is no acute fracture. IMPRESSION: 1. Interval C3-C4 anterior cervical discectomy and instrumented fusion Electronically signed by: Santy Charles MD, PHD Iam Cummins MD IMG XR PROCEDURES Final Re sult * eGFR (04/19/2025 10:35 PM CDT) eGFR 62 >=60 mL/min/1. 73 m2 Comment: Interpretive Data Reference Interval Normal >/= 90 mL/min/1.73m2 Mildly decreased* 60 - 89 mL/min/1.73m2 Mildly to moderately decreased 45 - 59 mL/min/1.73m2 Moderately to severely decreased 30 - 44 mL/min/1.73m2 Severely decreased 15 - 29 mL/min/1.73m2 Kidney Failure < 15 mL/min/1.73m2 *Relative to young adult level Estimated glomerular filtration rate is determined by the 2020 CKD-EPI equation recommended by the National Kidney Foundation (A Unifying Approach to GFR Estimation: Recommendations of the NKF-ASK Task Force on Reassessing the Inclusion of Race in Diagnosing Kidney Disease, JASN 2020). The CKD-EPI equation should not be used for patients with unstable renal function and has not been validated in children and those over 70. Current interpretive data was last reviewed 2021. Blood 04/19/2025 10:3 5 PM CDT 04/19/2025 11:20 PM CDT Iam Cummins MD LAB BLOOD ORDERABLES Final Result [facility] [place] [address] * (ABNORMAL) CBC without differential (04/19/2025 10:35 PM CDT) WBC 6.85 3.80 - 9.90 K/cumm Hgb 12.0(L) 13.0 - 17.5 g/dL [facility] Hct 33.9(L) 38.9 - 50.3 % [facility] Plt 141(L) 150 - 400 K/cumm [facility] MPV 10.0 9.1 - 12.3 fL [facility] RBC 3.89(L) 4.30 - 5.80 M/cumm [facility] MCV 87.1 81.3 - 96.4 fL [facility] MCH 30.8 27.1 - 33.3 pg [facility] MCHC 35.4 32.3 - 35.7 g/dL [facility] RDW CV 13.4 11.1 - 14.9 % [facility] RDW SD 42.2 35.7 - 48.1 fL [facility] NRBC abs 0.00 0.00 - 0.01 K/cumm [facility] Blood 04/19/2025 10:3 5 PM CDT 04/19/2025 11:20 PM CDT Iam Cummins MD LAB BLOOD ORDERABLES Final Result [facility] [place] [address] * (ABNORMAL) Basic metabolic panel (04/19/2025 10:35 PM CDT) Pathologist [facility] [place] Sodium 137 135 - 145 mmol/L Potassium, pl 4.0 3.3 - 4.9 mmol/L [facility] Chloride 104 97 - 110 mmol/L [facility] CO2 24 22 - 32 mmol/L [facility] Anion gap 9 2 - 15 mmol/L [facility] BUN 19 6 - 25 mg/dL [facility] Creatinine 1.27 0.80 - 1.30 mg/dL [facility] Glucose 140 70 - 199 mg/dL [facility] Comment: Interpretive Data Fasting glucose >/= 126 mg/dl is diagnostic for diabetes. Fasting is defined as no caloric intake for at least 8 hours. Fasting glucose between 100 mg/dl to 125 mg/dl is diagnostic of prediabetes. In a patient with classic symptoms of hyperglycemia or hyperglycemic crisis, a random glucose >/= 200 mg/dl is diagnostic for diabetes. In the absence of unequivocal hyperglycemia, results should be confirmed by repeat testing. The classification and Diagnosis of Diabetes Diabetes Care 2021; 46: S19-S40. Current interpretive data was last revised 2022. Calcium 8.2(L) 8.5 - 10.3 mg/dL [facility] Blood 04/19/2025 10:3 5 PM CDT 04/19/2025 11:20 PM CDT Iam Cummins MD LAB BLOOD ORDERABLES Final Result Performing Organization Address City/[facility] de Phone Number [facility] Department [place] [address] * (ABNORMAL) Blood gas, venous (04/19/2025 1:31 PM CDT) [facility] pH, Venous 7.39 7.32 - 7.43 PCO2, Venous 35(L) 40 - 50 mmHg [facility] PO2, Venous 43 mmHg [facility] Comment: Interpretive Data No Reference Range Established Current Interpretive Data was last revised on 2017. HCO3 Venous, Calculated 21 20 - 30 mmol/L [facility] BE, venous -3 mmol/L [facility] Comment: Interpretive Data No Reference Range Established Current Interpretive Data was last revised on 2017. Blood 04/19/2025 1:31 PM CDT 04/19/2025 1:54 PM CDT Rebekah Beaver OIL PAINTER LAB BLOOD ORDERABLES Fi nal Result Performing Organization Address [facility] [facility] de Phone Number [facility] [place] [address] * ECG 12 lead (04/19/2025 10:41 AM CDT) [facility] Ventricular Rate EKG/Min 49 BPM [facility] Atrial Rate 73 BPM [facility] QRS-Interval (MSEC) 80 ms [facility] QT-Interval (MSEC) 450 ms [facility] QTc 406 ms [facility] P Mabie 59 degrees [facility] R Mabie -15 degrees [facility] T Mabie 10 degrees [facility] Diagnosis Sinus rhythm with 2nd degree A-V block (Mobitz I) Abnormal ECG When compared with ECG of 19-APR-2025 10:35, (unconfirmed) Premature supraventricular complexes are no longer Present QRS duration has decreased Criteria for Anterior infarct are no longer Present Criteria for Anterolateral infarct are no longer Present ST no longer elevated in Inferior leads Non-specific change in ST segment in Lateral leads Nonspecific T wave abnormality now evident in Inferior leads Confirmed by DEVANTE CANALES M.D ([id number]) on 04/20/2025 5:40:28 PM [facility] 04/19/2025 10:4 1 AM CDT 04/20/2025 5:40 PM CDT Rebekah Beaver OIL PAINTER ECG ORDERABLES Final R esult Performing Organization Address [facility] de Phone Number [facility] * ECG 12 lead (04/19/2025 10:35 AM CDT) Ventricular Rate EKG/Min 54 BPM [facility] Atrial Rate 72 BPM [facility] QRS-Interval (MSEC) 162 ms [facility] QT-Interval (MSEC) 476 ms [facility] QTc 451 ms [facility] P Mabie 87 degrees [facility] R Mabie 23 degrees [facility] T Mabie 63 degrees [facility] Diagnosis Sinus rhythm with 2nd degree A-V block (Mobitz I) with Premature supraventricular complexes Non-specific intra-ventricular conduction block Anterolateral infarct , age undetermined Abnormal ECG When compared with ECG of 19-APR-2025 08:35, (unconfirmed) Significant changes have occurred Confirmed by DEVANTE CNAALES M.D ([id number]) on 04/20/2025 5:44:47 PM [facility] 04/19/2025 10:3 5 AM CDT 04/20/2025 5:44 PM CDT Rebekah Beaver OIL PAINTER ECG ORDERABLES Final R esult Performing Organization Address [facility] de Phone Number [facility] * ECG 12 lead (04/19/2025 8:35 AM CDT) Ventricular Rate EKG/Min 54 BPM [facility] Atrial Rate 74 BPM [facility] QRS-Interval (MSEC) 84 ms [facility] QT-Interval (MSEC) 442 ms [facility] QTc 419 ms [facility] R Mabie -18 degrees [facility] T Mabie 19 degrees [facility] Diagnosis Sinus rhythm with 2nd degree A-V block (Mobitz I) Nonspecific ST abnormality Abnormal ECG No previous ECGs available Confirmed by Ashlee Xie MD ([id number]) on 04/19/2025 4:13:40 PM [facility] 04/19/2025 8:35 AM CDT 04/19/2025 4:13 PM CDT Rebekah Beaver OIL PAINTER ECG ORDERABLES Final R esult Performing Organization Address [facility] de Phone Number [facility] * POCT glucose (04/18/2025 2:29 PM CDT) Glucose, POC 133 70 - 199 mg/dL Blood 04/18/2025 2:29 PM CDT 04/18/2025 2:29 PM CDT Iam Cummins MD LAB POCT ORDERABLES - MARGARITO CE Final Result Performing Organization Address [facility] Phone Number [facility] Department [place] [address] * FL Fluoroscopy < 1 Hour (04/18/2025 2:19 PM CDT) Narrative RAD_PACS_[facility] - 04/18/2025 3:22 PM CDT The images from this study are not interpreted by Radiology. Please refer to the physician's procedure / OR operative note. Iam Cummins MD IMG FLUOROSCOPY PROCEDURES Final Result Performing Organization Address [facility] de Phone Number RAD_PACS_[facility] * POCT glucose (04/18/2025 11:56 AM CDT) Glucose, POC 109 70 - 199 mg/dL Blood 04/18/2025 11:5 6 AM CDT 04/18/2025 11:56 AM CDT Iam Cummins MD LAB POCT ORDERABLES - MARGARITO CE Final Result [facility] Department [place] [address] * POCT glucose (04/18/2025 9:37 AM CDT) Glucose, POC 108 70 - 199 mg/dL Blood 04/18/2025 9:37 AM CDT 04/18/2025 9:37 AM CDT us Iam Cummins MD LAB POCT ORDERABLES - MARGARITO CE Final Result [facility] Department [place] [address] * Airway (04/18/2025 9:11 AM CDT) Narrative Isamar Sahu MD - 04/18/2025 9:11 AM CDT Isamar Sahu MD 04/18/2025 9:12 AM Airway Patient location: OR Urgency: elective Date/time: 04/18/2025 8:20 AM Indications for airway management: anesthesia Difficult airway: no Staff: Supervising provider: Jg Barroso MD Placed by: Resident: Isamar Sahu MD Emergent airway documentation: Risks and benefits discussed: yes Consent obtained: yes Consent given by: patient Airway prep: Preoxygenated: yes Patient position: sniffing Mask difficulty assessment: 1 - vent by mask Spontaneous ventilation during airway: absent Sedation level during airway: GA Final airway details: Final airway type: endotracheal airway Tube type: ETT ETT size: 7.5 mm Cuffed: yes Technique used for successful ETT placement: video laryngoscopy Devices/Methods used in placement: stylet Blade type: Ingrid Blade size: 4 Cormack-Lehane (video): grade I - full view of glottis Cuff inflated with: air ETT to teeth: 23 cm Placement verified by: auscultation and CO2 detection Airway secured with: prone view tape and tegaderm Number of attempts: 1 us Jg Barroso MD ANESTHESIA ORDERABLES Final Re sult * POCT glucose (04/18/2025 6:47 AM CDT) Glucose, POC 129 70 - 199 mg/dL Blood 04/18/2025 6:47 AM CDT 04/18/2025 6:47 AM CDT us Iam Cummins MD LAB POCT ORDERABLES - MARGARITO CE Final Result [facility] Department [place] [address] * CT Cervical Spine WO Contrast (04/18/2025 6:28 AM CDT) Anatomical Region Laterality Modality Spine N/A Computed Tomogra phy 04/18/2025 7:08 AM CDT Impressions 04/18/2025 8:15 AM CDT Severe degenerative changes of the cervical spine with up to moderate neural foraminal stenosis at left C3-C4 and right C5-C6 and up to moderate spinal canal stenosis at C2-C3 and C3-C4 as described above. If there is concern for ongoing spinal compression, consider repeat MRI of the cervical spine. Dictated by: Delma iRck MD The radiology attending physician has personally reviewed this study, and had reviewed and/or edited this written report and agrees with it. Electronically signed by: Clare Zhao M.D. Narrative 04/18/2025 8:15 AM CDT EXAMINATION: CT of the cervical spine without contrast HISTORY: 64 years-old Male with preop. TECHNIQUE: CT of the cervical spine was performed according to the standard protocol without intravenous contrast. COMPARISON: MRI cervical spine from 01/01/2025 FINDINGS: The alignment of the cervical spine is normal. There is no acute fracture. There is height loss of T1, which is not significantly changed compared to prior imaging dating back to 01/01/2025. There is multilevel degenerative disc disease, which is most pronounced and severe at C6-C7. The craniocervical junction is normal. There are atherosclerotic calcifications of the intracranial bilateral internal carotid arteries. Chronic sphenoid sinusitis with thickening of the bone and fluid in the sphenoid sinus. No soft tissue abnormality is identified. There is ossification of the posterior longitudinal ligament extending from C2-C5, which is most prominent at C2-C3 with subsequent moderate spinal canal stenosis at that level. There is a partially calcified posterior disc extrusion at C3-C4 with resulting, moderate spinal canal stenosis. There are partially calcified disc bulges at C5-C6 and C6-C7 with mild spinal canal stenosis at those levels. There is mild bilateral facet arthropathy. There is mild bilateral uncovertebral joint disease. There is up to moderate neuroforaminal stenosis at left C3-C4 and right C5-C6. There is up to moderate spinal canal stenosis at C2-C3 and C3-C4 as described above. Procedure Note Clare Zhao MD - 04/18/2025 EXAMINATION: CT of the cervical spine without contrast HISTORY: 64 years-old Male with preop. TECHNIQUE: CT of the cervical spine was performed according to the standard protocol without intravenous contrast. COMPARISON: MRI cervical spine from 01/01/2025 FINDINGS: The alignment of the cervical spine is normal. There is no acute fracture. There is height loss of T1, which is not significantly changed compared to prior imaging dating back to 01/01/2025. There is multilevel degenerative disc disease, which is most pronounced and severe at C6-C7. The craniocervical junction is normal. There are atherosclerotic calcifications of the intracranial bilateral internal carotid arteries. Chronic sphenoid sinusitis with thickening of the bone and fluid in the sphenoid sinus. No soft tissue abnormality is identified. There is ossification of the posterior longitudinal ligament extending from C2-C5, which is most prominent at C2-C3 with subsequent moderate spinal canal stenosis at that level. There is a partially calcified posterior disc extrusion at C3-C4 with resulting, moderate spinal canal stenosis. There are partially calcified disc bulges at C5-C6 and C6-C7 with mild spinal canal stenosis at those levels. There is mild bilateral facet arthropathy. There is mild bilateral uncovertebral joint disease. There is up to moderate neuroforaminal stenosis at left C3-C4 and right C5-C6. There is up to moderate spinal canal stenosis at C2-C3 and C3-C4 as described above. IMPRESSION: Severe degenerative changes of the cervical spine with up to moderate neural foraminal stenosis at left C3-C4 and right C5-C6 and up to moderate spinal canal stenosis at C2-C3 and C3-C4 as described above. If there is concern for ongoing spinal compression, consider repeat MRI of the cervical spine. Dictated by: Delma Rick MD The radiology attending physician has personally reviewed this study, and had reviewed and/or edited this written report and agrees with it. Electronically signed by: Clare Zhao M.D. Iam Cummins MD IMG CT PROCEDURES Final Re sult * (ABNORMAL) eGFR (04/10/2025 2:56 PM CDT) eGFR 57(L) >=60 mL/min/1. 73 m2 Comment: Interpretive Data Reference Interval Normal >/= 90 mL/min/1.73m2 Mildly decreased* 60 - 89 mL/min/1.73m2 Mildly to moderately decreased 45 - 59 mL/min/1.73m2 Moderately to severely decreased 30 - 44 mL/min/1.73m2 Severely decreased 15 - 29 mL/min/1.73m2 Kidney Failure < 15 mL/min/1.73m2 *Relative to young adult level Estimated glomerular filtration rate is determined by the 2020 CKD-EPI equation recommended by the National Kidney Foundation (A Unifying Approach to GFR Estimation: Recommendations of the NKF-ASK Task Force on Reassessing the Inclusion of Race in Diagnosing Kidney Disease, JASN 202). The CKD-EPI equation should not be used for patients with unstable renal function and has not been validated in children and those over 70. Current interpretive data was last reviewed 2021. Blood 04/10/2025 2:56 PM CDT 04/10/2025 3:48 PM CDT Iam Cummins MD LAB BLOOD ORDERABLES Final Result [facility] [address] [facility]. [place] [address] * Differential, auto (04/10/2025 2:56 PM CDT) Neutrophil abs 4.14 1.50 - 6.50 K/cumm Imm gran abs 0.01 0.00 - 0.10 K/cumm [facility] Lymphocyte abs 1.33 0.80 - 3.30 K/cumm [facility] Monocyte abs 0.54 0.20 - 0.80 K/cumm [facility] Eosinophil abs 0.12 0.00 - 0.50 K/cumm [facility] Basophil abs 0.02 0.00 - 0.10 K/cumm [facility] Neutrophil pct 67.2 % [facility] Comment: Interpretive Data Percent cell count reference ranges are not reported, since discordance with absolute values may lead to misinterpretation of CBC data. Current Interpretive Data was last revised on 2017. Imm gran pct 0.2 % [facility] Comment: Interpretive Data Percent cell count reference ranges are not reported, since discordance with absolute values may lead to misinterpretation of CBC data. Current Interpretive Data was last revised on 2017. Lymphocyte pct 21.6 % [facility] Comment: Interpretive Data Percent cell count reference ranges are not reported, since discordance with absolute values may lead to misinterpretation of CBC data. Current Interpretive Data was last revised on 2017. Monocyte pct 8.8 % [facility] Comment: Interpretive Data Percent cell count reference ranges are not reported, since discordance with absolute values may lead to misinterpretation of CBC data. Current Interpretive Data was last revised on 2017. Eosinophil pct 1.9 % [facility] Comment: Interpretive Data Percent cell count reference ranges are not reported, since discordance with absolute values may lead to misinterpretation of CBC data. Current Interpretive Data was last revised on 2017. Basophil pct 0.3 % [facility] Comment: Interpretive Data Percent cell count reference ranges are not reported, since discordance with absolute values may lead to misinterpretation of CBC data. Current Interpretive Data was last revised on 2017. Blood 04/10/2025 2:56 PM CDT 04/10/2025 3:48 PM CDT Iam Cummins MD LAB BLOOD ORDERABLES Final Result [facility] [address] [facility]. [place] [address] * (ABNORMAL) Urinalysis reflex to microscopic and culture Urine, clean voided (04/10/2025 2:56 PM CDT) Color, ur Straw Yellow Clarity, ur Clear Clear [facility] Specific gravity, ur 1.018 1.003 - 1.030 [facility] pH, urine 5.5 [facility] Comment: Interpretive Data U rine pH is affected by diet, medications, systemic acid-base disturbances, and renal tubular function. pH may affect urinary stone formation. For example, urine pH below 6.0 may help reduce the tendency for calcium phosphate stones and pH greater than 6.0 may reduce the tendency for uric acid stone formation. Source: [facility] Current Interpretive Data was last revised on 2017 Protein, ur ql Negative Negative [facility] Glucose, ur ql 4+(A) Negative [facility] Ketones, ur Negative Negative [facility] Bilirubin, ur Negative Negative [facility] Blood, ur Negative Negative [facility] Urobilinogen, ur <2.0 <2.0 mg/dL [facility] Nitrite, ur Negative Negative [facility] Leukocyte esterase, ur Negative Negative [facility] UA reflex comment Reflex conditions for microscopic UA and culture not met. [facility] Urine, clean voided 04/10/2025 2:56 PM CDT 04/10/2025 3:48 PM CDT Iam Cummins MD LAB MICROBIOLOGY - GENERAL ORDERABLES Final Result [facility] [address] [facility]. [facility] [place] [address] * CBC with auto differential (04/10/2025 2:56 PM CDT) WBC 6.16 3.80 - 9.90 K/cumm Hgb 14.8 13.0 - 17.5 g/dL [facility] Hct 44.2 38.9 - 50.3 % [facility] Plt 202 150 - 400 K/cumm [facility] MPV 10.0 9.1 - 12.3 fL [facility] RBC 4.98 4.30 - 5.80 M/cumm [facility] MCV 88.8 81.3 - 96.4 fL [facility] MCH 29.7 27.1 - 33.3 pg [facility] MCHC 33.5 32.3 - 35.7 g/dL [facility] RDW CV 13.2 11.1 - 14.9 % [facility] RDW SD 42.3 35.7 - 48.1 fL [facility] NRBC abs 0.00 0.00 - 0.01 K/cumm [facility] Blood 04/10/2025 2:56 PM CDT 04/10/2025 3:48 PM CDT Iam Cummins MD LAB BLOOD ORDERABLES Final Result Performing Organization Address [facility] de Phone Number [facility]A [facility] [address] [employer] [place], [place] [id number] * (ABNORMAL) Vitamin D 25 hydroxy (04/10/2025 2:56 PM CDT) [facility] Vitamin D 25-OH 29(L) 30 - 80 ng/mL Blood 04/10/2025 2:56 PM CDT 04/10/2025 3:48 PM CDT Iam Cummins MD LAB BLOOD ORDERABLES Final Result Performing Organization Address [facility] de Phone Number [facility] [address] [facility] [employer] [place], [place] [id number] * aPTT (04/10/2025 2:56 PM CDT) [facility] aPTT 29 26 - 38 sec Comment: Interpretive Data Heparin therapeutic range: 66.0 - 100.0 seconds. Range based on correlation with therapeutic heparin activity range of 0.3 - 0.7 Units/mL. Current interpretive data was last revised on 2023. Blood 04/10/2025 2:56 PM CDT 04/10/2025 3:48 PM CDT Iam Cummins MD LAB BLOOD ORDERABLES Final Result Performing Organization Address [facility] Phone Number [facility] [address] [facility] [place] [address] * Protime-INR (04/10/2025 2:56 PM CDT) PT 12.2 10.2 - 13.5 sec INR 1.08 0.90 - 1.20 [facility] Comment: Interpretive data Oral anticoagulant therapeutic ranges: Venous thromboembolism prophylaxis or treatment: 2.0-3.0 CARDIOLOGY Standard range: 2.0-3.0 High-intensity range: 2.5-3.5 Refer to indication-specific guidelines for appropriate target ranges for prosthetic heart valve replacement. Current interpretive data was last revised on 2019. Blood 04/10/2025 2:56 PM CDT 04/10/2025 3:48 PM CDT Iam Cummins MD LAB BLOOD ORDERABLES Final Result Performing Organization Address [facility] [address] [facility] [place] [address] * (ABNORMAL) Hemoglobin A1c (04/10/2025 2:56 PM CDT) Hgb A1C 6.6(H) 4.0 - 5.6 % Estimated Average Glucose 143 mg/dL [facility] Comment: The ADA recommends reporting an estimated Average Glucose (eAG) with all Hemoglobin A1c results using the equation derived from a study of 507 normal and diabetic adults. Minority populations were underrepresented and children were not included. (Diabetes Care 31:8892-7622, 2008). The eAG is not equivalent to a fasting glucose. Blood 04/10/2025 2:56 PM CDT 04/10/2025 3:48 PM CDT us Melissa Kline NP LAB BLOOD ORDERABLES Final Result [facility] [address] [facility] [address] * (ABNORMAL) Basic metabolic panel (04/10/2025 2:56 PM CDT) [facility] Sodium 138 135 - 145 mmol/L Potassium, pl 4.3 3.3 - 4.9 mmol/L [facility] Chloride 101 97 - 110 mmol/L [facility] CO2 22 22 - 32 mmol/L [facility] Anion gap 15 2 - 15 mmol/L [facility] BUN 21 6 - 25 mg/dL [facility] Creatinine 1.36(H) 0.80 - 1.30 mg/dL [facility] Glucose 175 70 - 199 mg/dL [facility] Comment: Interpretive Data Fasting glucose >/= 126 mg/dl is diagnostic for diabetes. Fasting is defined as no caloric intake for at least 8 hours. Fasting glucose between 100 mg/dl to 125 mg/dl is diagnostic of prediabetes. In a patient with classic symptoms of hyperglycemia or hyperglycemic crisis, a random glucose >/= 200 mg/dl is diagnostic for diabetes. In the absence of unequivocal hyperglycemia, results should be confirmed by repeat testing. The classification and Diagnosis of Diabetes Diabetes Care 2021; 46: S19-S40. Current interpretive data was last revised 2022. Calcium 9.9 8.5 - 10.3 mg/dL [facility] Blood 04/10/2025 2:56 PM CDT 04/10/2025 3:48 PM CDT us Iam Cummins MD LAB BLOOD ORDERABLES Final Result Performing Organization Address [facility] Co de Phone Number [facility] [address] [facility]. [facility] [place] [address] from Last 3 Months Insurance [employer] HMO PPO [employer] H[employer] PPO Advance Directives For more information, please contact: [phone] Documents on File Type Date Recorded Patient Cook Fishing Vessel Expl anation Power of Core Analyst 10/17/2024 10:59 AM 174 [id number] Power of Core Analyst 10/17/2024 10:58 AM Hai [id number] Power of Core Analyst 10/17/2024 10:58 AM Bebe Rangel 1743 [id number].jpg * Full Code (Latest Code Status on File) Date Activated Date Inactivated Comments 04/18/2025 7:27 PM 04/20/2025 8:39 PM Healthcare Agents on File Name Relationship Healthcare Agent Relationshi p Communication Bebe Rangel Spouse [employer] Alternate [employer] Care Agent Kenneth Lechuga Friend First Alternate Health Car e Agent Care Teams [employer] Apprentice Relationship Specialty Start Date End Date Jeni Sifuentes MD [address] [facility] [address] [place] [address] PCP - General Family Medicine 01/28/25 Fan Bauer MD [address] [place] [address] Consulting Physician Pain Management 02/10/25 Matty Arellano MD [address] [place] [address] Project Management Advisor Internal Medicine 01/28/25
--- OUTSIDE RECORDS SUMMARY | 2025-06-25 13:02 | XMS_ITS | Clinical Summary ---
Author Organization [facility] age Address [address] [place] [address] Phone Care Team Providers Care Media Strategist Name Role Phone Arden Fitzgerald MD Primary Care Provider +1 -[phone] Allergies No known active allergies Medications multivitamin (DAILY-KENISHA) tablet Take 1 Tablet by mouth daily. Active CPAP / BIPAP suppliesIndicati ons:Obstructive sleep apnea Cpap/Bipap supplies: nasal mask with headgear A7034,A7035 1/6mo, mask only A7034 1/3mo, cushion A7032 2/mo, non heated tubing A7037 1/3mo, water chamber A7046 1/6mo, filter disposable A7038 2/mo, Filter reusable A7039 1/6mo Chin strap A7036 1/ 6 Mo Length of need: 99 months DX G47.33 1 Each 0 Active Miscellaneous Medical Supply Polar Ice machine 1 Each 0 Active aspirin (ECOTRIN EC) 81 mg Tablet, Delayed Release (E.C.) Take 1 Tablet (81 mg) by mouth 2 times daily. 60 Tablet 0 Active bi-level machineIndicatio ns:Obstructive sleep apnea Bipap / with heated humidifier. Length of Need: 99 mo Current mask with headgear 1 per 6 mo, mask only 1 per 3 mo, cushions per mo, Tubing 1 per 3 mo, water chamber 1 per 6 months, chin strap 1 per 6 months, filters disposable 2 per month, filters reusable 1 per 6 months 1 Each 0 Active metFORMIN (GLUCOPHAGE) 1,000 mg tabletIndication s:Type 2 diabetes mellitus without complication, without long-term current use of insulin ([facility]) Take 1 Tablet (1,000 mg) by mouth 2 times daily with meals. 180 Tablet 4 1 Active traZODone (DESYREL) 50 mg tablet Take 1-2 Tablets (50-100 mg) by mouth daily at bedtime. 180 Tablet 4 1 Active lisinopriL (PRINIVIL) 20 mg tabletIndication s:Type 2 diabetes mellitus without complication, without long-term current use of insulin ([facility]),Essent ial hypertension Take 1 Tablet (20 mg) by mouth daily. 90 Tablet 4 1 Active atorvastatin (LIPITOR) 40 mg tabletIndication s:Type 2 diabetes mellitus without complication, without long-term current use of insulin ([facility]),Dyslip idemia Take 1 Tablet (40 mg) by mouth daily with supper. 90 Tablet 4 1 Active exenatide microspheres (Bydureon) 2 mg/0.65 mL Pen InjectorIndicati ons:Type 2 diabetes mellitus without complication, without long-term current use of insulin ([facility]) Inject 2 mg by subcutaneous injection every 7 days. 3 Each 4 1 Active polyethylene glycol 3350 (MIRALAX) 17 gram/dose Powder Dissolve in 64 ounces of fluid and drink entire liquid 238 Gram 1 Active bisacodyL (DULCOLAX) 5 mg Delayed Release tablet Take 1 Tablet (5 mg) by mouth 1 time daily as needed for Constipation. 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 02/28/2020 Obstructive sleep apnea 09/24/2019 Essential hypertension 09/24/2019 Dyslipidemia 09/24/2019 Anemia 09/24/2019 First degree AV block 09/24/2019 Type 2 diabetes mellitus wit hout complication, without long-term current use of insulin 09/03/2019 Chronic pain syndrome 09/03/2019 Bilateral primary osteoarthritis of knee 020 Hx MRSA infection 09/03/2019 Neural foraminal stenosis of lumbosacral spine 0 10/02/2017 Overview (09/03/2019): Added automatically from request for surgery [id number] Disc disease, degenerative, lumbar or lumbosacra l 10/02/2017 Overview (09/03/2019): Added automatically from request for surgery [id number] Resolved Problems Problem Noted Date Diagnosed Date Resolved Date Preoperative general physical examination 09/24/2019 11/11/2020 Primary osteoarthritis of left knee 09/24/2019 04/17/2020 Obesity (BMI 30.0-34.9) 09/24/201910/23 Immunizations Immunization Administration Dates Next Due (SPIKEVAX) (12 YRS UP PRIMAR Y SERIES) COVID-19 VACCINE - MRNA-1273(PF) 100 MCG/0.5 ML IM SUSP 10/06/2020,09/04/2020 INFLUENZA VACCINE QUADRIVALENT 6 MOS UP PF IM ,07/31/2019 Influenza Seasonal Unspecified Formulation IM Family History Medical History Relation Name Comments Healthy Brother 1 Healthy Brother 2 Healthy Daughter Lung Cancer Father Smoker Heart Disease Mother Healthy Sister 1 Healthy Sister 2 Healthy Son 1 Healthy Son 2 Healthy Son 3 Relation Name Status Comments Brother 1 Alive Brother 2 Alive Daughter Alive Father (Age 84) Mother (Age 84) Sister 1 Alive Sister 2 Alive Son 1 Alive Son 2 Alive Son 3 Alive Social History Tobacco Use Types Packs/Day Years Used Date Smoking Tobacco: Never Smokeless Tobacco: Never Alcohol Use Standard Drinks/Week Comments Not Currently 0 (1 standard drink = 0.6 oz pur e alcohol) Sex and Gender Information Value Date Recorded Sex Assigned at Not on file 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 Gender Identity Not on file Sexual Orientation Not on file Occupation Industry Job Start Date Job End Date Not on file Not on file Not on file Not on file Last Filed Vital Signs Vital Sign Reading Time Taken Comments Blood Pressure 101/65 12/17/2020 10:27 AM CDT Pulse 81 12/17/2020 10:27 AM CDT Temperature 36.8 C (98.2 F) 12/17/2020 10:23 AM CDT Respiratory Rate 18 12/17/2020 10:27 AM CDT Oxygen Saturation 97% 12/17/2020 10:27 AM CDT Inhaled Oxygen Concentration - - Weight 133.8 kg (295 lb) 12/17/2020 9:02 AM CDT Height 195.6 cm (6' 5 ) 12/17/2020 9:02 AM CDT Body Mass Index 34.98 12/17/2020 9:02 AM CDT Plan of Treatment Health Maintenance Due Date Last Done Comments DIABETES ANNUAL FOOT EXAM 1976 FIT/ DNA Q 3 YEARS (AUTO ORDER) 1976 FIT/FOBT Q 1 YEAR (AUTO ORDER) 1976 FLEX SIG/CT COLONOGRAPHY Q 5 YEARS (AUTO ORDER) 1976 DTAP/TDAP/TD VACCINES (1 - Tdap) 1977 PNEUMOCOCCAL VACCINE 50+ YEA RS (1 of 2 - PCV) 1977 FIT-DNA Q 3 years 2003 FIT/FOBT Q 1 year 2003 Flex Sig/CT Colonography Q 5 years 2003 RSV VACCINE (60+ or ) (1 - Risk 50-74 years 1-dose series) 2008 ZOSTER VACCINE (1 of 2) 2008 DIABETES HBA1C Q 6 MONTHS 05/15/20212020, 02/28/2020, 09/03/2019 DIABETES MICROALBUMIN ANNUAL SCREEN 11/13/202111/13, 09/03/2019 LDL CHOLESTEROL ANNUAL 11/13/2021 1, 09/03/2019, 12/29/2017 DIABETES ANNUAL RETINAL EXAM 07/28/2023 07/28/2022, 03/26/2020 Medicare Advantage (NE) Prev entative Visit/Annual Wellness Visit 07/24/2024 INFLUENZA VACCINE (#1) 2025 0, 05/04/2020, 07/31/2019 COVID-19 Vaccine ( season) 2025, 09/04/2020 COLORECTAL CANCER SCREENING (AUTO ORDER) 12/17/2030 12/17/2020 COLORECTAL SCREENING 12/17/2030 12/17/2020 Colorectal Cancer Screening (AUTO ORDER) 12/17/2030 Colorectal Cancer Screening 12/17/2030 Medical Devices Implanted Type Area Maintenance Mechanic Elevators Device Identifier Shelf Expiration Date Model / Serial / Lot Cement Simplex Hvisc 6194-1-010 - [id number] Implanted:Qty: 1 on 03/13/2020 by Evelyn Hernandez MD at [facility] Cement Left: Knee [employer] [id number] 04/22/2021 6194-1-010 / / [id number] Cement Simplex Hvisc 6194-1-010 - [id number] Implanted:Qty: 1 on 03/13/2020 by Evelyn Hernandez MD at [facility] Cement Left: Knee [employer] [id number] 04/22/2021 6194-1-010 / / [id number] Insert Attune Fb Ps Sz7 7mm 1516-40-707 - [id number] Implanted:Qty: 1 on 03/13/2020 by Evelyn Hernandez MD at [facility] Knee Left: Knee [employer] [id number] 12/22/2023 [id number] / / [id number] Comp Fem Attune Ps Cmnt Sz7 1504-10-107 - [id number] Implanted:Qty: 1 on 03/13/2020 by Evelyn Hernandez MD at [facility] Knee Left: Knee [employer] [id number] 01/20/2030 [id number] / / [id number] Patella Attune Ольга 35mm 1518-10-035 - [id number] Implanted:Qty: 1 on 03/13/2020 by Evelyn Hernandez MD at [facility] Knee Left: Knee [employer] [id number] 01/20/2022 [id number] / / [id number] Comp Tib Attune Fb Cmnt Sz8 1506-70-008 - [id number] Implanted:Qty: 1 on 03/13/2020 by Evelyn Hernandez MD at [facility] Knee Left: Knee [employer] [id number] 12/21/2029 [id number] / / [id number] Sealant Floseal 5ml [id number] - [id number] Implanted:Qty: 1 on 05/08/2020 by Castro Freeman MD at [facility] Sealant N/A: Scrotum SERRANO- [employer] [id number] / / Procedures Procedure Name Priority Date/Time Associated Diagnosis Comments MICROALBUMIN/CREATIN INE RATIO, RANDOM UR Routine 11/13/2020 8:49 AM CDT Type 2 diabetes mellitus without complication, without long-term current use of insulin ([facility]) LIPID PANEL Routine 11/13/2020 8:48 AM CDT Type 2 diabetes mellitus without complication, without long-term current use of insulin ([facility]) Essential hypertension Dyslipidemia HEMOGLOBIN A1C Routine 11/13/2020 8:48 AM CDT Type 2 diabetes mellitus without complication, without long-term current use of insulin ([facility]) DIABETES EYE EXAM Routine 03/26/2020 from Last 3 Months or Most Recently Relevant to Health Maintenance Results * MICROALBUMIN/CREATININE RATIO, RANDOM UR (11/13/2020 8:49 AM CDT) MICROALBUMIN, URINE 1.3 No Reference Range mg/dL 11/13/2020 8:28 PM CDT [facility] CREATININE, URINE 166.4 40.0 - 278.0 mg/dL 11/13/2020 8:28 PM CDT [facility] Comment:Reference Range vari es with fluid intake and diet. MICROALBUMIN/C REAT RATIO, UR 7.8 <17.0 mg/g 11/13/2020 8:28 PM CDT [facility] Urine URINE SPECIMEN OBTAINED BY CLEAN CATCH PROCEDURE / Unknown Collection / Unknown 11/13/2020 8:49 AM CDT 11/13/2020 7:38 PM CDT Narrative [facility] - 11/13/2020 8:28 PM CDT Condition Microalbumin/Creat ratio Normal Males <17 Normal Females <25 Microalbuminuria Males 17-299 Microalbuminuria Females 25-299 Overt proteinuria >=300 Arden Fitzgerald MD URINE ORDERABLES Final Re sult Performing Organization Address [facility] Co de Phone Number [facility] CLIA# [id number] [address] [place] [address] * (ABNORMAL) HEMOGLOBIN A1C (11/13/2020 8:48 AM CDT) HEMOGLOBIN A1C 6.3(H) See Comment % 11/13/2020 8:10 PM CDT [facility] EST. AVG GLUCOSE, A1C 134 mg/dL 11/13/2020 8:10 PM CDT [facility] Blood Collection / Unknown 11/13/2020 8:48 AM CDT 11/13/2020 7:38 PM CDT Narrative [facility] - 11/13/2020 8:10 PM CDT HGB A1C INTERPRETATION NORMAL: <5.7% PRE-DIABETES: 5.7 - 6.4% DIABETES: 6.5% OR GREATER Falsely low A1C measurements can occur when: 1. Anemia and/or hemolytic anemia is present. 2. Hemoglobin variants present. 3. Renal failure. 4. Transfusion of blood product in the last 120 days. We recommend ordering a fructosamine test(SDG5900) to more accurately assess glycemic status if any of the above conditions are present. Arden Fitzgerald MD CHEMISTRY ORDERABLES Debra l Result Performing Organization Address [facility]/ZIP Co de Phone Number [facility] CLIA# [id number] [address] [place] [address] * (ABNORMAL) LIPID PANEL (11/13/2020 8:48 AM CDT) CHOLESTEROL 91 <200 mg/dL 11/13/2020 8:20 PM CDT [facility] TRIGLYCERIDE 123 <150 mg/dL 11/13/2020 8:20 PM CDT [facility] HDL 26(L) 40 - 59 mg/dL 11/13/2020 8:20 PM CDT [facility] LDL CALCULATED 40 <100 mg/dL 11/13/2020 8:20 PM CDT [facility] NON-HDL CHOLESTEROL 65 <130 mg/dL 11/13/2020 8:20 PM CDT [facility] Blood Collection / Unknown 11/13/2020 8:48 AM CDT 11/13/2020 7:38 PM CDT Narrative [facility] - 11/13/2020 8:20 PM CDT TOTAL CHOLESTEROL mg/dL Desirable <200 Borderline high 200-239 High >=240 TRIGLYCERIDES mg/dL Normal <150 Borderline high 150-199 High 200-499 Very high >=500 HDL CHOLESTEROL mg/dL Low <40 Normal 40-59 Desirable >=60 NON HDL CHOLESTEROL mg/dL Optimal <130 Near Optimal 130-159 Borderline High 160-189 Very High >=190 CALCULATED LDL mg/dL LDL <70, OPTIMAL if have Atherosclerotic cardiovascular disease (ASCVD) or intermediate or higher (>7.5%) 10 year risk of ASCVD including most adults with diabetes. LDL <100, Optimal in adult patients with low (<7.5%) 10 year ASCVD risk LDL 100-160, Suboptimal LDL >160, High LDL >190, Very high ATPIII Guidelines Reference Ranges for Lipid Panels (NCEP/AMA) . 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 Advance Directive POA 03/04/2020 7:49 AM D PA AND BLOOD Advance Directive Living Will 03/04/2020 7:49 AM [place] DPA Advance Directive POA 08/29/2019 12:03 PM A dvance Directive POA * Full Code (Latest Code Status on File) Date Activated Date Inactivated Comments 12/17/2020 9:15 AM 12/17/2020 12:45 PM * Full Code Date Activated Date Inactivated Comments 05/08/2020 7:37 AM 05/08/2020 1:28 PM * Full Code Date Activated Date Inactivated Comments 03/13/2020 7:52 AM 03/13/2020 12:37 PM Care Teams Media Strategist Relationship Specialty Start Date End Date Arden Fitzgerald MD [address] [phone] PCP - General Family Practice 09/03/19
--- OUTSIDE RECORDS SUMMARY | 2025-06-25 13:02 | XMS_ITS | Encounter Summary ---
Author Organization [facility] Address [address] [place] [address] Care Team Providers Care Roller Name Role Phone Arden Fitzgerald MD Primary Care Provider +1 [phone] Encounter Details Date Type Department Care Team (Late st Contact Info) Description 10/12/2012 Ancillary Orders [facility] General Laboratory Services [address] [place] [address] Larry Danielle MD [address] [place] [address] Social History Tobacco Use Types Packs/Day Years Used Date Smoking Tobacco: Never Assessed Sex and Gender Information Value Date Recorded Sex Assigned at Not on file 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
--- OUTSIDE RECORDS SUMMARY | 2025-06-25 13:02 | XMS_ITS | Encounter Summary ---
Author Organization [facility] Address [address] [place] [address] Care Team Providers Care Professor Of Kinesiology Name Role Phone Arden Fitzgerald MD Primary Care Provider [phone] [phone] Encounter Details Date Type Department Care Team (Latest Contact Info) Description 04/22/2020 Ancillary Orders [facility] - Orthopedic [facility] [address] [place] [phone] Ishaan Easton PA [address] [place] [address] S/P left knee surgery Social History Tobacco Use Types Packs/Day Years Used Date Smoking Tobacco: Never Smokeless Tobacco: Never Alcohol Use Standard Drinks/Week Comments Not Currently 0 (1 standard drink = 0.6 oz pur e alcohol) Sex and Gender Information Value Date Recorded Sex Assigned at Not on file 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 No / Unsure 04/23/2020 10:49 AM CDT documented as of this encounter Plan of Treatment Not on file documented as of this encounter Results * XR KNEE 3 VW LEFT (04/17/2020 10:44 AM CDT) Anatomical Region Laterality Modality Lower Extremity Computed Radiogr aphy Narrative 04/22/2020 11:50 AM CDT Left knee: Cemented total knee arthroplasty components overall good alignment good position. No evidence of hardware loosening or failure. Ishaan Carrera [facility] ORDRobert MÉNDEZ Final Result documented in this encounter Visit Diagnoses Diagnosis S/P left knee surgery S/P left knee surgery documented in this encounter Care Teams Professor Of Kinesiology Relationship Specialty Start Date End Date Arden Fitzgerald MD [address] [address] PCP - General Family Practice 09/03/19 documented as of this encounter
--- OUTSIDE RECORDS SUMMARY | 2025-06-25 13:02 | XMS_ITS | Encounter Summary ---
Author Organization [facility] Address [address] [place] [address] Care Team Providers Care Electrostatic Powder Coating Technician Name Role Phone Arden Fitzgerald MD Primary Care Provider +1 [phone] Encounter Details Date Type Department Care Team (Late st Contact Info) Description 04/07/2020 [facility] - Orthopedic [facility] 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 No / Unsure 04/10/2020 9:46 AM CDT documented as of this encounter Plan of Treatment Not on file documented as of this encounter Visit Diagnoses Diagnosis Primary osteoarthritis of left knee- Primary Primary localized osteoarthrosis, lower leg documented in this encounter Care Teams Electrostatic Powder Coating Technician Relationship Specialty Start Date End Date Arden Fitzgerald MD [address] [address] PCP - General Family Practice 09/03/19 documented as of this encounter
--- OUTSIDE RECORDS SUMMARY | 2025-06-25 13:02 | XMS_ITS | Encounter Summary ---
Author Organization [facility] Address [address] [place] [address] Care Team Providers Care Venue Attendant Name Role Phone Arden Fitzgerald MD Primary Care Provider +1 [phone] Encounter Details Date Type Department Care Team (Late st Contact Info) Description 12/19/2012 Ancillary Orders [facility] General Laboratory Services [address] [place] [address] Larry Danielle MD [address] [place] [phone] Social History Tobacco Use Types Packs/Day Years Used Date Smoking Tobacco: Never Assessed Sex and Gender Information Value Date Recorded Sex Assigned at Not on file 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
--- OUTSIDE RECORDS SUMMARY | 2025-06-25 13:02 | XMS_ITS | Encounter Summary ---
Author Organization [facility] Address [address] [facility] [place] [address] Care Team Providers Care Rail Engineer Name Role Phone Arden Fitzgerald MD Primary Care Provider [phone] [phone] Encounter Details Date Type Department Care Team (Late st Contact Info) Description 12/19/2012 Ancillary Orders [facility] General Laboratory Services [address] [place] [address] Larry Danielle MD [address] [place] [phone] Social History Tobacco Use Types Packs/Day Years Used Date Smoking Tobacco: Never Assessed Sex and Gender Information Value Date Recorded Sex Assigned at Not on file 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
--- OUTSIDE RECORDS SUMMARY | 2025-06-25 13:02 | XMS_ITS | Clinical Summary ---
Author Organization [facility] age Address [address] [place] [address] Phone Care Team Providers Care Sectional Belt Mold Assembler Name Role Phone Unavailable Primary Care Provider Unavailabl e Allergies No known active allergies Medications multivitamin (DAILY-KENISHA) tablet Take 1 Tablet by mouth daily. 0 Active CPAP / BIPAP suppliesIndicat ions:Obstructiv e sleep apnea Cpap/Bipap supplies: nasal mask with headgear A7034,A7035 1/6mo, mask only A7034 1/3mo, cushion A7032 2/mo, non heated tubing A7037 1/3mo, water chamber A7046 1/6mo, filter disposable A7038 2/mo, Filter reusable A7039 1/6mo Chin strap A7036 1/ 6 Mo Length of need: 99 months DX G47.33 1 Each 0 0 Active aspirin (ECOTRIN EC) 81 mg Tablet, Delayed Release (E.C.) Take 1 Tablet (81 mg) by mouth 2 times daily. 60 Tablet 0 0 Active bi-level machineIndicati ons:Obstructive sleep apnea Bipap 08/07 with heated humidifier. Length of Need: 99 mo Current mask with headgear 1 per 6 mo, mask only 1 per 3 mo, cushions per mo, Tubing 1 per 3 mo, water chamber 1 per 6 months, chin strap 1 per 6 months, filters disposable 2 per month, filters reusable 1 per 6 months 1 Each 0 0 Active metFORMIN (GLUCOPHAGE) 1,000 mg tabletIndicatio ns:Type 2 diabetes mellitus without complication, without long-term current use of insulin (CMS/HCC) Take 1 Tablet (1,000 mg) by mouth 2 times daily with meals. 180 Tablet 4 1 Active atorvastatin (LIPITOR) 40 mg tabletIndicatio ns:Type 2 diabetes mellitus without complication, without long-term current use of insulin (CMS/HCC),Dysli pidemia Take 1 Tablet (40 mg) by mouth daily with supper. 90 Tablet 4 1 Active Blood-Glucose Meter Kit Check blood sugar daily. E11.9 1 Each 1 Active blood sugar diagnostic (Blood Glucose Test) Strip Check blood sugar daily. E11.9 100 Each 11 1 Active Additional Information Patient taking differently: Check blood sugar daily. E11.9accu-chek guide ins approved, Reported on 11/17/2022 lancets 30 gauge 1 Each by [facility]Non-Drug; Combo Route) route daily. 100 Each 11 1 Active Ozempic 0.25 mg or 0.5 mg(2 mg/1.5 mL) Pen Injector Takes on Monday 2 Active metoprolol succinate (TOPROL XL) 25 mg Extended Release 24 hour tablet 12.5 mg daily. 2 Active Jardiance 25 mg tablet take one tab BY MOUTH every DAY 2 Active clopidogreL (PLAVIX) 75 mg Tablet TAKE ONE TAB BY MOUTH DAILY 2 Active lisinopriL (PRINIVIL) 10 mg tablet TAKE ONE TAB BY MOUTH EVERY DAY 2 Active meclizine (ANTIVERT) 12.5 mg tabletIndicatio ns:Vertigo Take 1 Tablet (12.5 mg) by mouth 3 times daily as needed for Dizziness. 60 Tablet 2 Active Additional Information Patient not taking.Reported on 11/17/2022 acetaminophen ER 650 mg tablet,extended release Take 1,300 mg by mouth daily at bedtime. Active acetaminophen (TYLENOL) 500 mg tablet Take 2 Tablets (1,000 mg) by mouth every 8 hours. 90 Tablet 09/06/2022 1:46 PM APPEALS SPECIALIST 3 Active zolpidem (AMBIEN) 5 mg tabletIndicatio ns:S/P total knee arthroplasty, right Take 1 Tablet (5 mg) by mouth nightly as needed for Insomnia. 14 Tablet 3 Active Additional Information Patient not taking.Reported on 11/17/2022 diclofenac sodium (VOLTAREN) 1 % gelIndications: S/P total knee arthroplasty, right Apply 2 Grams to affected area 4 times daily. 100 Gram 3 Active promethazine-de xtromethorphan (PHENERGAN-DM) 6.25-15 mg/5 mL syrupIndication s:Upper respiratory tract infection, unspecified type,Acute cough Take 5 mL by mouth every 4 hours as needed for Cough. 120 mL 1 3 Active methylPREDNISol one (MEDROL DOSPACK) 4 mg Tablets, Dose Pack Please follow package instructions for appropriate dosing. 21 Tablet 5 Active Active Problems Problem Noted Date Diagnosed Date Sudden onset of severe headache 12/16/2024 Neck pain, acute 12/16/2024 Severe headache 12/16/2024 Arthritis of knee, right 09/05/2022 Hyponatremia 08/23/2022 Preoperative general physical examination 2022 CAD (coronary atherosclerotic disease) 3 Obesity (BMI 30.0-34.9) 08/23/2022 Status post total left knee replacement 04/17/20 20 Refusal of blood transfusion s as patient is Druze 02/28/2020 Obstructive sleep apnea 09/24/2019 Essential hypertension 09/24/2019 Dyslipidemia 09/24/2019 Anemia 09/24/[address] First degree AV block 09/24/2019 Type 2 diabetes mellitus wit hout complication, without long-term current use of insulin 09/03/2019 Chronic pain syndrome 09/03/2019 Bilateral primary osteoarthritis of knee 020 Hx MRSA infection 09/03/2019 Neural foraminal stenosis of lumbosacral spine 0 10/02/2017 Overview (01/26/2021): Added automatically from request for surgery [id number] Disc disease, degenerative, lumbar or lumbosacra l 10/02/2017 Overview (01/26/2021): Added automatically from request for surgery [id number] Resolved Problems Problem Noted Date Diagnosed Date Resolved Date Severe obesity (BMI 35.0-39. 9) with comorbidity 11/11/2020 07/01/2022 Encounters Date Type Department Care Team Description 06/24/2025 External Device Data STL ABSTRACTION Provider, Abstract 06/03/2025 External Device Data STL ABSTRACTION Provider, Abstract 04/22/2025 External Device Data STL ABSTRACTION Provider, Abstract from Last 3 Months Immunizations Immunization Administration Dates Next Due (SPIKEVAX) (12 YRS UP PRIMAR Y SERIES) COVID-19 VACCINE - MRNA-1273(PF) 100 MCG/0.5 ML IM SUSP 11/08/2021,05/20/2021,10/06/2020,2020 INFLUENZA VACCINE QUADRIVALE NT 6 MOS UP PF IM 05/04/2020,07/31/2019 Influenza Seasonal Unspecifi ed Formulation IM 05/31/2022,07/07/2021,05/04/2020 Family History Medical History Relation Name Comments [...] Passive Smoke Exposure: Never Smokeless Tobacco: Never Tobacco Cessation:Counseling Given: No Alcohol Use Standard Drinks/Week Comments Not Currently [...] on file Legal Sex Male 3:41 AM APPEALS SPECIALIST Gender Identity Not on file Sexual Orientation Not on file Last Filed Vital Signs Vital Sign Reading Time Taken Comments Blood Pressure 125/74 12/16/2024 11:30 PM CDT Pulse 81 12/16/2024 11:30 PM CDT Temperature 36.7 C (98 F) 12/16/2024 8:55 PM CDT Respiratory Rate 20 12/16/2024 11:30 PM CDT Oxygen Saturation 98% 12/16/2024 11:30 PM CDT Inhaled Oxygen Concentration - - Weight 132.5 kg (292 lb) 12/16/2024 8:55 PM CDT Height 193 cm (6' 4 ) 12/16/2024 8:55 PM CDT Body Mass Index 35.54 12/16/2024 8:55 PM CDT Plan of Treatment Health Maintenance Due Date Last Done Comments DTAP/TDAP/TD VACCINES (1 - Tdap) 1977 FIT-DNA Q 3 years 2003 FIT/FOBT Q 1 year 2003 Flex Sig/CT Colonography Q 5 years 2003 RSV VACCINE (60+ or ) (1 - Risk 50-74 years 1-dose series) 2008 ZOSTER VACCINE (1 of 2) 2008 DIABETES HBA1C Q 6 MONTHS 01/02/20232021, 11/13/2020, 11/13/2020, Additional history exists DIABETES MICROALBUMIN ANNUAL SCREEN 07/04/2023 07/04/2022, 11/13/2020, 09/03/2019 LDL CHOLESTEROL ANNUAL 07/04/2023 , 11/13/2020, 09/03/2019, Additional history exists DIABETES ANNUAL RETINAL EXAM 07/28/202311/2022, 03/26/2020, 03/26/2020 DIABETES ANNUAL FOOT EXAM 11/18/2023 11/17/2022 INFLUENZA VACCINE (#1) 2025 , 07/07/2021, 05/04/2020, Additional history exists COVID-19 Vaccine (2024-2 6 season) 2025 06/21/2023, 06/23/2022, 11/08/2021, Additional history exists COLORECTAL SCREENING 12/17/2030 12/17/2020 Colorectal Cancer Screening 12/17/2030 PNEUMOCOCCAL VACCINE 50+ YEARS Completed 08/08/2023 Medical Devices Implanted Type Area Master Automotive Glass Technician Device Identifier Shelf Expiration Date Model / Serial / Lot Cement Simplex Hvisc 6194-1-010 - [id number] Implanted:Qty: 1 on 03/13/2020 by Evelyn Hernandez MD Cement Left: Knee [employer] [id number] 04/22/2021 6194-1-010 / / [id number] Cement Simplex Hvisc 6194-1-010 - [id number] Implanted:Qty: 1 on 03/13/2020 by Evelyn Hernandez MD Cement Left: Knee [employer] [id number] 04/22/2021 6194-1-010 / / [id number] Cement Palacos Mv Zirconium Dioxide St Lf Disp [id number] - [id number] Implanted:Qty: 1 on 09/05/2022 by Evelyn Hernandez MD at [facility] Cement N/A: Knee [employer] [id number] 03/23/2026 [id number] / / [id number] Cement Palacos Mv Zirconium Dioxide St Lf Disp [id number] - [id number] Implanted:Qty: 1 on 09/05/2022 by Evelyn Hernandez MD at [facility] Cement N/A: Knee [employer] [id number] 03/23/2026 [id number] / / [id number] Insert Attune Fb Ps Sz7 7mm 1516-40-707 - [id number] Implanted:Qty: 1 on 03/13/2020 by Evelyn Hernandez MD Knee Left: Knee [employer] [id number] 12/22/2023 [id number] / / [id number] Patella Attune Ольга 35mm 1518-10-035 - [id number] Implanted:Qty: 1 on 03/13/2020 by Evelyn Hernandez MD Knee Left: Knee [employer] [id number] 01/20/2022 [id number] / / [id number] Comp Fem Attune Ps Cmnt Sz7 1504-10-107 - [id number] Implanted:Qty: 1 on 03/13/2020 by Evelyn Hernandez MD Knee Left: Knee [employer] [id number] 01/20/2030 [id number] / / [id number] Comp Tib Attune Fb Cmnt Sz8 1506-70-008 - [id number] Implanted:Qty: 1 on 03/13/2020 by Evelyn Hernandez MD Knee Left: Knee [employer] [id number] 12/21/2029 [id number] / / [id number] Comp Tib Attune Fb Cmnt Sz8 1506-70-008 - [id number] Implanted:Qty: 1 on 09/05/2022 by Evelyn Hernandez MD at [facility] Knee N/A: Knee [employer] [id number] 06/22/2032 [id number] / / [id number] Comp Fem Attune Ps Sz 8 Rt Cmntd 1504-10-208 - [id number] Implanted:Qty: 1 on 09/05/2022 by Evelyn Hernandez MD at [facility] Knee N/A: Knee [employer] [id number] 05/23/2032 [id number] / / [id number] Insert Attune Fb Ps Sz8 8mm 1516-40-808 - [id number] Implanted:Qty: 1 on 09/05/2022 by Evelyn Hernandez MD at [facility] Knee N/A: Knee [employer] [id number] 05/23/2027 [id number] / / [id number] Sealant Floseal 5ml [id number] - [id number] Implanted:Qty: 1 on 05/08/2020 by Castro Freeman MD Sealant N/A: Scrotum SERRANO- BI[employer] [id number] / / Procedures Procedure Name Priority Date/Time Associated Diagnosis Comments DIABETES EYE EXAM Routine 07/28/2022 MICROALBUMIN/CREATIN INE RATIO, RANDOM UR Routine 07/04/2022 8:43 AM APPEALS SPECIALIST Type 2 diabetes mellitus without complication, without long-term current use of insulin ([facility]) LIPID PANEL Routine 07/04/2022 8:43 AM APPEALS SPECIALIST Type 2 diabetes mellitus without complication, without long-term current use of insulin ([facility]) Dyslipidemia HEMOGLOBIN A1C Routine 07/04/2022 8:43 AM APPEALS SPECIALIST Type 2 diabetes mellitus without complication, without long-term current use of insulin ([facility]) from Last 3 Months or Most Recently Relevant to Health Maintenance Results * DIABETES EYE EXAM (07/28/2022) [facility] DIABETIC RETINOPATHY SCREENING us Abstract Provider HEALTH MAINTENANCE Edited Resu lt - Final * MICROALBUMIN/CREATININE RATIO, RANDOM UR (07/04/2022 8:43 AM APPEALS SPECIALIST) [facility] Creatinine, Urine 108 20 - 320 mg/dL [facility] MICROALBUMIN, URINE <0.2 See Note: mg/dL [facility] Comment: Reference Range: Reference Range Not established MICROALBUMIN/CREAT RATIO, UR NOTE <30 mcg/mg creat [facility] Comment: NOTE: The urine albumin value is less than 0.2 mg/dL therefore we are unable to calculate excretion and/or creatinine ratio. The ADA defines abnormalities in albumin excretion as follows: Albuminuria Category Result (mcg/mg creatinine) Normal to Mildly increased <30 Moderately increased 30-299 Severely increased > OR = 300 The ADA recommends that at least two of three specimens collected within a 3-6 month period be abnormal before considering a patient to be within a diagnostic category. Test Performed at: [facility] [address] [employer] [address] Johnathan Nuñez D.O., MPH Urine URINE SPECIMEN OBTAINED BY CLEAN CATCH PROCEDURE / Unknown 07/04/2022 8:43 AM APPEALS SPECIALIST 07/05/2022 6:10 AM APPEALS SPECIALIST us Kathryn MARTÍNEZP URINE ORDERABLES Final Result Performing Organization Address City/[facility]/ZIP Co de Phone Number [facility] [phone] [facility] [address] [place] [address] * (ABNORMAL) HEMOGLOBIN A1C (07/04/2022 8:43 AM APPEALS SPECIALIST) HEMOGLOBIN A1C 6.3(H) <5.7 % of total Hgb [facility] Comment: For someone without known diabetes, a hemoglobin A1c value between 5.7% and 6.4% is consistent with prediabetes and should be confirmed with a follow-up test. For someone with known diabetes, a value <7% indicates that their diabetes is well controlled. A1c targets should be individualized based on duration of diabetes, age, comorbid conditions, and other considerations. This assay result is consistent with an increased risk of diabetes. Currently, no consensus exists regarding use of hemoglobin A1c for diagnosis of diabetes for children. ESTIMATED AVERAGE GLUCOSE (MG/DL) 134 mg/dL [facility] ESTIMATED AVERAGE GLUCOSE (MMOL/L) 7.4 mmol/L [facility] Comment: Test Performed at: [facility] [address] [place] [address] Johnathan Nuñez D.O., MPH Blood 07/04/2022 8:43 AM APPEALS SPECIALIST 07/05/2022 5:57 AM APPEALS SPECIALIST us Kathryn ELAINE CHEMISTRY ORDERABLES Final Resul t [facility] [phone] [facility] [address] [facility] [place] [address] * (ABNORMAL) LIPID PANEL (07/04/2022 8:43 AM APPEALS SPECIALIST) CHOLESTEROL 119 <200 mg/dL [facility] HDL 28(L) > OR = 40 mg/dL [facility] TRIGLYCERIDE 186(H) <150 mg/dL [facility] LDL CALCULATED 66 mg/dL (calc) [facility] Comment: Reference range: <100 Desirable range <100 mg/dL for primary prevention; <70 mg/dL for patients with CHD or diabetic patients with > or = 2 CHD risk factors. LDL-C is now calculated using the Arsen calculation, which is a validated novel method providing better accuracy than the Friedewald equation in the estimation of LDL-C. Nolan SS et al. JUSTINE. 2013;310(19): 8066-5625 (http://education.ReflexPhotonics/faq/UGO744) CHOL/HDL RATIO 4.3 <5.0 (calc) [facility] TOTAL NON-HDL CHOL(LDL+VLDL) 91 <130 mg/dL (calc) [facility] Comment: For patients with diabetes plus 1 major ASCVD risk factor, treating to a non-HDL-C goal of <100 mg/dL (LDL-C of <70 mg/dL) is considered a therapeutic option. Test Performed at: [facility] [address] [facility] [place] [address] Johnathan Nuñez D.O., MPH Blood 07/04/2022 8:43 AM APPEALS SPECIALIST 07/05/2022 5:57 AM APPEALS SPECIALIST us Kathryn ELAINE CHEMISTRY ORDERABLES Final Resul t [facility] [phone] [facility] [address] [facility] [place] [address] from Last 3 Months or Most Recently Relevant to Health Maintenance Insurance [facility] MEDICARE HMO * Guarantor: ALISSA RANGEL Account Type Relation to Patient Date of Phone Billing Address Personal/Family [address], [place] [address] [facility] Medicare Part D Advance Directives For more information, please contact: [phone] Documents on File Type Date Recorded Patient Drum Stock Clerk Expl anation Advance Directive POA 03/04/2020 7:49 AM D PA AND BLOOD Advance Directive Living Will 03/04/2020 7:49 AM [place] DPA Advance Directive POA 08/29/2019 12:03 PM A dvance Directive POA * Default Full Code - Needs Discussion (Latest Code Status on File) Date Activated Date Inactivated Comments 09/05/2022 10:38 AM 09/06/2022 4:03 PM * Full Code Date Activated Date Inactivated Comments 09/05/2022 6:02 AM 09/05/2022 10:37 AM
--- OUTSIDE RECORDS SUMMARY | 2025-06-25 13:02 | XMS_ITS | Encounter Summary ---
Author Organization [facility] Address [address] [facility] [address] [place] [address] Care Team Providers Care Driving Teacher Name Role Phone Arden Fitzgerald MD Primary Care Provider [phone] Encounter Details Date Type Department Care Team (Late st Contact Info) Description 10/12/2012 Ancillary Orders [facility] Laboratory Services [address] [place] [address] Larry Danielle MD [address] [place] [address] Social History Tobacco Use Types Packs/Day Years Used Date Smoking Tobacco: Never Assessed Sex and Gender Information Value Date Recorded Sex Assigned at Not on file Legal Sex Male 1:37 PM CLINICAL EDUCATION ACADEMIC COORDINATOR Gender Identity Not on file Sexual Orientation Not on file documented as of this encounter Plan of Treatment Not on file documented as of this encounter Visit Diagnoses Not on filedocumented in this encounter Care Teams Driving Teacher Relationship Specialty Start Date End Date Arden Fitzgerald MD [address] [facility] [address] [place] [address] PCP - General Family Practice 09/03/19 documented as of this encounter
--- OUTSIDE RECORDS SUMMARY | 2025-06-25 13:02 | XMS_ITS | Encounter Summary ---
Author Organization [facility] Address [address] [facility] [place] [address] Care Team Providers Care Operating System Programmer Name Role Phone Arden Fitzgerald MD Primary Care Provider [phone] Encounter Details Date Type Department Care Team (Late st Contact Info) Description 10/12/2012 Ancillary Orders [facility] General Laboratory Services [address] [place] [address] Larry Danielle MD [address] [place] [address] Social History Tobacco Use Types Packs/Day Years Used Date Smoking Tobacco: Never Assessed Sex and Gender Information Value Date Recorded Sex Assigned at Not on file Legal Sex Male 1:37 PM TELECOMMUNICATIONS CONSULTANT Gender Identity Not on file Sexual Orientation Not on file documented as of this encounter Plan of Treatment Not on file documented as of this encounter Visit Diagnoses Not on filedocumented in this encounter Care Teams Operating System Programmer Relationship Specialty Start Date End Date Arden Fitzgerald MD [address] [facility] [address] [place] [address] PCP - General Family Practice 09/03/19 documented as of this encounter
--- OUTSIDE RECORDS SUMMARY | 2025-06-25 13:02 | XMS_ITS | Encounter Summary ---
Author Organization [facility] Address [address] [place] [address] Care Team Providers Care Sports Agent Name Role Phone Arden Fitzgerald MD Primary Care Provider [phone] Encounter Details Date Type Department Care Team (Late st Contact Info) Description 12/19/2012 Ancillary Orders [facility] General Laboratory Services [address] [place] [address] Larry Danielle MD [address] [place] [phone] Social History Tobacco Use Types Packs/Day Years Used Date Smoking Tobacco: Never Assessed Sex and Gender Information Value Date Recorded Sex Assigned at Not on file Legal Sex Male 1:37 PM DISASSEMBLER Gender Identity Not on file Sexual Orientation Not on file Occupation Industry Job Start Date Job End Date Not on file Not on file Not on file Not on file documented as of this encounter Plan of Treatment Not on file documented as of this encounter Visit Diagnoses Not on filedocumented in this encounter Care Teams Sports Agent Relationship Specialty Start Date End Date Arden Fitzgerald MD [address] [facility] [address] [place] [address] PCP - General Family Practice 09/03/19 documented as of this encounter
--- NOTE | 2025-06-25 14:13 | PC.NURSE ---
pt reported a change in condition, new onset CP and head ache pt brought back to triage to repeat EKG and VS and placed in room 14, provider aware
--- NOTE | 2025-06-25 14:17 | XR_ITS ---
WS: [id number] Exam: XR chest 1V portable [id number] Date/Time of Exam: 06/25/2025 2:19 PM Reason For Exam: Weakness Comparison 11/26/2024. Lungs are fully expanded and clear. Unremarkable cardiomediastinal silhouette and bony structures. No pleural effusion. XR/XR chest 1V portable [id number] IMPRESSION: 1. No acute cardiopulmonary finding.
--- NOTE | 2025-06-25 14:18 | ECG_ITS ---
[facility] Test Date: 2025-06-25 Pat Name: Larry Rangel Department: Room: Gender: Male Craps Dealer: : 1960 Requested By: Sharla Bush Order Number: [id number] Linda MD: Faizan Poe M.D. Measurements Intervals [place] Rate: 54 P: 0 SC: 0 QRS: -20 QRSD: 82 T: 13 QT: 413 QTc: 394 Interpretive Statements MOBITZ I AV BLOCK ([place] LOW QRS VOLTAGE IN PRECORDIAL LEADS [QRS DEFLECTION < 1.0 mV IN CHEST LEADS] ABNORMAL RHYTHM ECG Compared to ECG 11/27/2024 03:34:25 Low QRS voltage now present Sinus rhythm no longer present Left-axis deviation no longer present Electronically Signed On 06-25-2025 23:38:58 CARRIER OPERATOR by Faizan Poe M.D. [email or web address]
--- NOTE | 2025-06-25 14:22 | W.ED.ARRPALP ---
HPI - Arrhythmia/Palpitations General: Chief Complaint: Arrhythmia/Palpitations Stated Complaint: low bp/light headed Time Seen by Provider: 06/25/25 14:18 Related Data Home Medications ?Medication ?Instructions ?Recorded ?Confirmed multivitamin 1 tab PO DAILY 06/24/21 06/25/25 atorvastatin 40 mg tablet 40 mg PO QAM 06/25/25 06/25/25 clopidogrel 75 mg tablet 75 mg PO QAM 06/25/25 06/25/25 furosemide 20 mg tablet See Rx Instructions .Route .COMPLEX 06/25/25 06/25/25 lisinopril 10 mg tablet 10 mg PO QAM 06/25/25 06/25/25 metformin 1,000 mg tablet 1,000 mg PO BID 06/25/25 06/25/25 tirzepatide 12.5 mg/0.5 mL 12.5 mg SUBCUT Q7D 06/25/25 06/25/25 subcutaneous pen injector (Collins) Previous Rx's ?Medication ?Instructions ?Recorded aspirin 81 mg tablet,delayed 81 mg PO DAILY #90 tabs 06/24/21 release (Adult Low Dose Aspirin) nitroglycerin 0.4 mg sublingual 0.4 mg sublingual Q5M PRN chest 06/24/21 tablet (Nitrostat) pain #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,flight data technician,cont #1 ea 02/15/24 (Dexcom G7 Turf And Grounds Supervisor) blood-glucose sensor (Dexcom G7 #3 ea 10/16/24 Sensor device) hydrocodone 5 mg-acetaminophen 325 1 tab PO Q12H PRN pain 30 days #45 03/12/25 mg tablet tabs blood-glucose sensor (Dexcom G7 #3 ea 04/28/25 Sensor device) Allergies Allergy/AdvReac Type Severity Reaction Status Date / Time No Known Allergies Allergy Verified 06/25/25 12:48 PFS ED PFSH: Medical History (Updated 06/25/25 @ 11:18 by CHELE Crowell) History of narcotic addiction Hx MRSA infection Hx of complications due to general anesthesia Cardiac arrest Vfib with lumbar soine surgery CAD (coronary artery disease) Had stent in Coronary artery Acidosis Sleep apnea compliant with Bipap Arthritis DDD (degenerative disc disease) Diabetes mellitus HTN (hypertension) Hyperlipidemia Surgical History (Updated 05/28/25 @ 09:50 by CHELE Crowell) History of hydrocelectomy S/P shoulder surgery History of back surgery S/P total knee arthroplasty S/P hernia repair Family History Mother Congestive heart failure (CHF) Stroke Diabetes Hypertension Father , Small cell lung disease FH: CABG (coronary artery bypass surgery) Hypertension Lung disease Other Cancer Social History Smoking and tobacco/nicotine status: never used tobacco/nicotine Second hand smoke exposure: No Alcohol intake: never Substance/Drug Use: never Adopted: No Caregiver/support person: No Lives independently: Yes Household members: spouse Housing: House Marital status: Number of children: 4 Highest education level completed: Some College, No Degree Education level details: 4 yrs electronic service: No Current occupational status: disabled Current gender identity: Male Dara/Pentecostalism: Christian Agree to transfusion: No Course Vital Signs: Vital signs: Vital Signs Temperature 97.2 F L 06/25/25 12:53 Pulse Rate 37 L 06/25/25 16:05 Respiratory Rate 17 06/25/25 16:05 Blood Pressure 122/71 06/25/25 16:05 Pulse Oximetry 100 06/25/25 16:05 Oxygen Delivery Me thod Room Air 06/25/25 14:10 MDM - Arrhythmia/Palpitations Lab Data 06/25/25 14:21 06/25/25 14:21 Radiology Impressions Chest X-Ray 06/25/25 14:17 IMPRESSION: 1. No acute cardiopulmonary finding. Laboratory Results WBC 6.84 10^3/uL (3.29-11.43) 06/25/25 14:21 RBC 4.86 10^6/uL (3.85-5.65) 06/25/25 14:21 Hgb 13.80 g/dL (11.27-16.99) 06/25/25 14:21 Hct 41.1 % (37-53) 06/25/25 14:21 MCV 84.6 fl (82-101) 06/25/25 14:21 MCH 28.4 pg (27-33) 06/25/25 14:21 MCHC 33.6 g/dL (30-55) 06/25/25 14:21 RDW 12.9 % (12.1-15.1) 06/25/25 14:21 Plt Count 167 10^3/cmm (157-399) 06/25/25 14:21 MPV 8.7 fL (7.4-10.4) 06/25/25 14:21 Neut % (Auto) 67.8 % 06/25/25 14:21 Lymph % (Auto) 21.9 % 06/25/25 14:21 [place] % (Auto) 8.2 % 06/25/25 14:21 Eos % (Auto) 1.6 % 06/25/25 14:21 Baso % (Auto) 0.4 % 06/25/25 14:21 Neut # (Auto) 4.63 10^3/uL (1.8-7.7) 06/25/25 14:21 Lymph # (Auto) 1.5 10^3/uL (0.8-4.8) 06/25/25 14:21 [place] # (Auto) 0.6 10^3/uL (0.2-0.9) 06/25/25 14:21 Eos # (Auto) 0.1 10^3/uL (0.0-0.8) 06/25/25 14:21 Baso # (Auto) 0.0 10^3/uL (0.0-0.1) 06/25/25 14:21 Nucleated RBC % (auto) 0 % 06/25/25 14:21 Nucleated RBCs # 0.0 /100WBC 06/25/25 14:21 Sodium 138 mmol/L (136-145) 06/25/25 14:21 Potassium 4.1 mmol/L (3.5-5.1) 06/25/25 14:21 Chloride 100 mmol/L (98-107) 06/25/25 14:21 Carbon Dioxide 23 mmol/L (22-29) 06/25/25 14:21 Anion Gap 19.1 (5-19) H 06/25/25 14:21 BUN 19 mg/dL (8-23) 06/25/25 14:21 Creatinine 1.1 mg/dL (0.7-1.2) 06/25/25 14:21 GFR Calculation 67.0 mL/min (90-130) L 06/25/25 14:21 Glucose 106 mg/dL (65-115) 06/25/25 14:21 Calculated Osmolality 289 mOsm/kg (285-295) 06/25/25 14:21 Lactic Acid 2.4 mmol/L (0.5-2.2) H 06/25/25 14:21 Calcium 9.7 mg/dL (8.5-10.5) 06/25/25 14:21 Total Bilirubin 0.7 mg/dL (0.15-1.2) 06/25/25 14:21 AST 16 U/L (0-40) 06/25/25 14:21 ALT 14 U/L (0-41) 06/25/25 14:21 Alkaline Phosphatase 67 U/L (40-130) 06/25/25 14:21 Troponin T Baseline 18 ng/L (0-15) H 06/25/25 14:21 NT-Pro-B Natriuret Pep 231 pg/mL (0-125) H 06/25/25 14:21 Total Protein 7.5 g/dL (6.6-8.7) 06/25/25 14:21 Albumin 4.5 g/dL (3.5-5.2) 06/25/25 14:21 Globulin 3.0 g/dL (1.3-4.6) 06/25/25 14:21 Urine Color Yellow (Yellow) 06/25/25 15:03 Urine Appearance Clear (CLEAR) 06/25/25 15:03 Urine pH 5.5 (5-7) 06/25/25 15:03 Ur Specific Anita 1.013 (1.005-1.030) 06/25/25 15:03 Urine Protein Negative (Negative) 06/25/25 15:03 Urine Glucose (UA) Negative (Normal) 06/25/25 15:03 Urine Ketones Negative (Negative) 06/25/25 15:03 Urine Blood Negative (Negative) 06/25/25 15:03 Urine Nitrate Negative (Negative) 06/25/25 15:03 Urine Bilirubin Negative (Negative) 06/25/25 15:03 Urine Urobilinogen 0.2 mg/dL (Negative) 06/25/25 15:03 Ur Leukocyte Esterase Negative (Negative) 06/25/25 15:03 Urine RBC 0-2 /hpf (0-2) 06/25/25 15:03 Urine WBC 0-5 /hpf (0-5) 06/25/25 15:03 Ur Squamous Epith Cells 0-5 /hpf (0-5) 06/25/25 15:03 Amorphous Sediment Not Reportable 06/25/25 15:03 Urine Bacteria None seen /hpf (NONE) 06/25/25 15:03 Hyaline Casts 3.30 /lpf 06/25/25 15:03 Discharge Plan Discharge Condition: Stable Prescriptions: No Action multivitamin Tablet 1 tab PO DAILY nitroglycerin [Nitrostat] 0.4 mg tablet, sublingual 0.4 mg sublingual Q5M PRN (Reason: chest pain) Qty: 25 3RF Rx Instructions: do not exceed 3 doses per episode aspirin [Adult Low Dose Aspirin] 81 mg tablet,delayed release (DR/EC) 81 mg PO DAILY Qty: 90 3RF (DME) Dexcom G7 Turf And Grounds Supervisor Misc See Rx Instructions .Route Qty: 1 0RF Rx Instructions: As directed (DME) Dexcom G7 Sensor Device See Rx Instructions .ROUTE .COMPLEX Qty: 3 3RF Dose Instruction: USE DIRECTED Rx Instructions: USE DIRECTED hydrocodone-acetaminophen 5-325 mg tablet 1 tab PO Q12H PRN (Reason: pain) 30 Days Qty: 45 0RF (DME) Dexcom G7 Sensor Device See Rx Instructions .ROUTE .COMPLEX Qty: 3 3RF Dose Instruction: USE DIRECTED Rx Instructions: USE DIRECTED atorvastatin 40 mg tablet 40 mg PO QAM clopidogrel 75 mg tablet 75 mg PO QAM metformin 1,000 mg tablet 1,000 mg PO BID lisinopril 10 mg tablet 10 mg PO QAM furosemide 20 mg tablet See Rx Instructions .ROUTE .COMPLEX Rx Instructions: TAKE 1 TABLET BY MOUTH EVERY MORNING and ONE tablet at 2pm. Mounjaro 12.5 mg/0.5 mL pen injector 12.5 mg SUBCUT Q7D Rx Instructions: Monday Referrals: Jackie Nelson FNP [Primary Care Provider, Family Practice] Print Language: Swedish Coding Level of Care Code ED Candle Making Supervisor for Daquan Wilkerson
[2025-06-25 14:32] LABS: Hematocrit 41.1 % (37-53); Hemoglobin 13.80 g/dL (11.27-16.99); Mean Corpuscular HGB Conc 33.6 g/dL (30-55); Mean Corpuscular Hemoglobin 28.4 pg (27-33); Mean Corpuscular Volume 84.6 fl (82-101); Nucleated Red Blood Cells % 0 %; Platelet Count 167 10^3/cmm (157-399); Red Blood Count 4.86 10^6/uL (3.85-5.65); White Blood Count 6.84 10^3/uL (3.29-11.43)
--- NOTE | 2025-06-25 14:44 | PC.NURSE ---
instructed pt on need for urine sample, handed cup, pt states no further questions.
[2025-06-25 14:46] LABS: Lactic Sepsis W/Reflex 2.4 mmol/L (0.5-2.2); Troponin(5th) Baseline 18 ng/L (0-15)
[2025-06-25 14:54] LABS: Alanine Aminotransferase 14 U/L (0-41); Albumin Level 4.5 g/dL (3.5-5.2); Alkaline Phosphatase 67 U/L (40-130); Anion Gap 19.1 (5-19); Aspartate Amino Transferase 16 U/L (0-40); Blood Urea Nitrogen 19 mg/dL (8-23); Calcium 9.7 mg/dL (8.5-10.5); Carbon Dioxide 23 mmol/L (22-29); Chloride 100 mmol/L (98-107); Globulin 3.0 g/dL (1.3-4.6); Glucose 106 mg/dL (65-115); NT Pro B Type Natriuretic Pept 231 pg/mL (0-125); Osmolality Calculated 289 mOsm/kg (285-295); Potassium 4.1 mmol/L (3.5-5.1); Sodium 138 mmol/L (136-145); Total Protein 7.5 g/dL (6.6-8.7)
[2025-06-25 15:16] LABS: Glucose Urine UA Negative (Normal); Nitrate Urine Negative (Negative); Specific Gravity, Urine 1.013 (1.005-1.030)
--- NOTE | 2025-06-25 16:11 | PM.HP ---
Providers/Chief Complaint Primary Care Provider: CHELE Greco Chief Complaint: low bp/light headed History of Present Illness Larry Rangel is a 64 year old male with prior medical history of CAD, SIXTO, DDD, CP, HTN, HLD, URI, DM, enlarged LVH, bradycardia, diabetic ulcers, and multiple spine surgeries presenting with complaints of syncopal symptoms and pain. Patient reports that 2 months ago he had a cervical spine surgery -and postop he had episodes of bradycardia. Cardiology was consulted and his metoprolol was discontinued. They had wanted to keep him but he decided to follow-up with his primary Yarn Mercerizer Operator, Dr. Garcia. -Patient reports that he found that Dr. Garcia was no longer practicing in this area but around the same time he felt his symptoms had improved. Patient is used to being active and began exercising/walking more. He found he could not tolerate this with his heart rate registering 55 on flat land, reaching only up to 95 uphill and registering 40s at rest. Lowest heart rate was in the 30s. He had difficulty sleeping, fatigue, dizziness, lightheadedness, near-syncope, falls, and increased headaches. He saw his PCP who suspected a second-degree heart block and advised him to come to the ED with EMS. Patient was close to the ED and elected to come [facility] ED via private vehicle. at bedside. Of note, patient is a Anabaptist and refuses all blood products. He is a full code. Patient had flu shot last week. In the ED, BP 122/71, HR 37, RR 17, T97.2. CBC unremarkable. Lactic 2.4, GFR 67. BUN and creatinine WNL. Troponins 18. Repeat troponins pending. BNP 231. CXR; no acute pulmonary findings. Will admit to the hospitalist service for further evaluation and treatment. Review of Systems General: Reports: 10 or more systems reviewed and unremarkable except in HPI and below Card: Reports: chest pain, palpitations, irregular heart rhythm, lightheadedness, syncope and dyspnea on exertion Resp: Reports: dyspnea 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,product demonstrator,cont #1 ea 02/15/24 06/25/25 Unknown Rx (Dexcom G7 Cathead Worker) blood-glucose sensor (Dexcom G7 #3 ea 10/16/24 06/25/25 Unknown Rx Sensor device) hydrocodone 5 mg-acetaminophen 325 1 tab PO Q12H PRN pain 30 days #45 03/12/25 06/25/25 Unknown Rx mg tablet tabs blood-glucose sensor (Dexcom G7 #3 ea 04/28/25 06/25/25 Unknown Rx Sensor device) atorvastatin 40 mg tablet 40 mg PO QAM 06/25/25 06/25/25 06/25/25 History clopidogrel 75 mg tablet 75 mg PO QAM 06/25/25 06/25/25 06/25/25 History furosemide 20 mg tablet See Rx Instructions .Route .COMPLEX 06/25/25 06/25/25 06/25/25 History lisinopril 10 mg tablet 10 mg PO QAM 06/25/25 06/25/25 06/25/25 History metformin 1,000 mg tablet 1,000 mg PO BID 06/25/25 06/25/25 06/25/25 History tirzepatide 12.5 mg/0.5 mL 12.5 mg SUBCUT Q7D 06/25/25 06/25/25 06/23/25 History subcutaneous pen injector (Mounjaro) Allergies Allergy/AdvReac Type Severity Reaction Status Date / Time No Known Allergies Allergy Verified 06/25/25 12:48 PFSH Acute PFSH: Medical History History of narcotic addiction Hx MRSA infection Hx of complications due to general anesthesia Cardiac arrest Vfib with lumbar soine surgery CAD (coronary artery disease) Had stent in Coronary artery Acidosis Sleep apnea compliant with Bipap Arthritis DDD (degenerative disc disease) Diabetes mellitus HTN (hypertension) Hyperlipidemia Surgical History History of hydrocelectomy S/P shoulder surgery History of back surgery S/P total knee arthroplasty S/P hernia repair Family History Mother Congestive heart failure (CHF) Stroke Diabetes Hypertension Father , Small cell lung disease FH: CABG (coronary artery bypass surgery) Hypertension Lung disease Other Cancer Social History Smoking and tobacco/nicotine status: never used tobacco/nicotine Second hand smoke exposure: No Alcohol intake: never Substance/Drug Use: never Adopted: No Caregiver/support person: No Lives independently: Yes Household members: spouse Housing: House Marital status: Number of children: 4 Highest education level completed: Some College, No Degree Education level details: 4 yrs electronic service: No Current occupational status: disabled Current gender identity: Male Dara/Gnosticist: Anabaptist Agree to transfusion: No Vitals/I&O/Wt Last Vital Signs Temp 97.2 F L 06/25/25 12:53 Pulse 37 L 06/25/25 16:05 Resp 17 06/25/25 16:05 BP 122/71 06/25/25 16:05 Pulse Ox 100 06/25/25 16:05 O2 Del Method Room Air 06/25/25 14:10 Weight last 48 hrs Weight 120.202 kg Physical Exam Narrative: GENERAL: Patient is alert, awake and oriented x3 NECK: No jugular vein distension HEENT: No cyanosis. No icterus. No pallor. HEART: Regular S1 and S2. Grade 2/6 systolic murmur LUNGS: Clear to auscultate bilaterally CENTRAL NERVOUS SYSTEM: Grossly nonfocal EXTREMITIES: Lower extremities with 1+ edema bilaterally. Data 06/25/25 14:21 06/25/25 14:21 A&P Assessment and plan 1. Arrhythmia: With palpitations, syncope, flutter sensation, dyspnea on exertion, and lightheadedness Fall risk precautions EKG Telemetry, Pulse oximetry O2 protocol, supplemental O2 to keep saturations greater than 92% Troponins Pacemaker considerations Cardiology consulted, recommendations appreciated 2. 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 Dolan with follow-up July 2025 04/18/2025 - 04/21/2025 patient was seen at [facility] for cervical spine surgery Neck and back pain radiating down leg rated 8/10 Normally takes Acetaminophen for arthritis Pain management 3. Diabetes mellitus: On home metformin, hold Glucose 109 Sliding scale 4. CAD (coronary artery disease): 2022 stent Patient reports that 9 months ago patient had imaging that revealed LVH enlarged and they placed him on metoprolol, angiogram showed stent was patent 5. Headache: History of headaches related to his cervical spine and history of optic nerve headaches Pain management PDMP PDMP Reviewed: Not Reviewed Attestations Medical Necessity Statement*: Initial hospitalization expected to cross 2 midnights secondary to arrhythmia, shortness of breath on exertion, and need for cardiology consult. Diagnoses Arrhythmia I49.9 H/O cervical spine surgery Z98.890 Diabetes mellitus E11.9 CAD (coronary artery disease) I25.10 Headache R51.9
[2025-06-25 16:13] LABS: Reflex Lactate Order REFLEX LACTIC ORDERD
--- NOTE | 2025-06-25 16:18 | ECG_ITS ---
[facility] Date: 2025-06-25 Pat Name: Larry Rangel Department: Room: Gender: Male Certified Low Vision Therapist: : 1960 Requested By: Sharla Bush Order Number: [id number] Linda MD: Faizan Poe M.D. Measurements Intervals [place] Rate: 50 P: 0 MA: 0 QRS: -25 QRSD: 87 T: 17 QT: 444 QTc: 405 Interpretive Statements sinus rhythm with third-degree AV block with junctional escape BORDERLINE LEFT AXIS DEVIATION [QRS AXIS < -20] LOW QRS VOLTAGE IN PRECORDIAL LEADS [QRS DEFLECTION < 1.0 mV IN CHEST LEADS] ABNORMAL RHYTHM ECG Compared to ECG 06/25/2025 14:07:56 No significant changes Electronically Signed On 06-25-2025 23:46:02 GENERAL INTERNIST AND PHYSICIAN LEADER by Faizan Poe M.D. [email or web address] [id number]
[2025-06-25 16:35] LABS: Troponin 5 2HR 15.38 ng/L (0-15)
[2025-06-25 16:37] LABS: Troponin 5 2HR Delta -2.62 ABS# (0-10)
[2025-06-25 16:43] LABS: Lactic Acid level (Lactate) 2.3 mmol/L (0.5-2.2)
--- NOTE | 2025-06-25 18:03 | PC.NURSE ---
pt concerned for BG being low, checked via FS was 92. pt provided sandwich and orange juice d/t pt reporting glucose of 92 was below his goal of 100. pt reports PCP wants his glucose >/=100
[2025-06-25] MEDS: pantoprazole 40 mg SDV IVP (20:00)
--- NOTE | 2025-06-25 20:18 | ECG_ITS ---
[facility] Test Date: 2025-06-25 Pat Name: Larry Rangel Department: Room: 108 Gender: Male Soup Mixer: : 1960 Requested By: Sharla Bush Order Number: [id number] Mckeon MD: Faizan Poe M.D. Measurements Intervals [place] Rate: 55 P: 0 NC: 0 QRS: -19 QRSD: 90 T: 34 QT: 487 QTc: 468 Interpretive Statements SINUS BRADYCARDIA WITH 2ND DEGREE AV BLOCK, MOBITZ TYPE I (WENCKEBACH) PROLONGED QT INTERVAL CRITICAL TEST RESULT Compared to ECG 06/25/2025 14:35:13 Prolonged QT interval now present Atrial fibrillation no longer present Electronically Signed On 06-25-2025 23:41:39 SLEEP LAB TECHNOLOGIST by Faizan Poe M.D. [email or web address] [id number]
[2025-06-25 20:59] LABS: Troponin 5 6HR 19.34 ng/L (0-15); Troponin 5 6HR Delta 1.34 ng/L (0-12)
[2025-06-25 21:16] LABS: Magnesium 1.7 mg/dL (1.7-2.3)
[2025-06-26] VITALS: BP 103/63; PULSE 52; RESP 10; O2SAT 97
[2025-06-26 04:00] VITALS: BP 124/69; PULSE 54; RESP 17; TEMP 36.7; O2SAT 97
[2025-06-26 07:24] VITALS: BP 121/75; PULSE 53; RESP 22; TEMP 36.8; O2SAT 97
[2025-06-26 08:01] LABS: Hematocrit 40.4 % (37-53); Hemoglobin 13.30 g/dL (11.27-16.99); Mean Corpuscular HGB Conc 32.9 g/dL (30-55); Mean Corpuscular Hemoglobin 28.8 pg (27-33); Mean Corpuscular Volume 87.4 fl (82-101); Nucleated Red Blood Cells % 0 %; Platelet Count 192 10^3/cmm (157-399); Red Blood Count 4.62 10^6/uL (3.85-5.65); White Blood Count 6.91 10^3/uL (3.29-11.43)
--- NOTE | 2025-06-26 08:21 | P.PN_ITS ---
Vitals/I&O/Wt Last Vital Signs Temp 98.3 F 06/26/25 07:24 Pulse 53 L 06/26/25 07:24 Resp 22 H 06/26/25 07:24 BP 121/75 06/26/25 07:24 Pulse Ox 97 06/26/25 07:24 O2 Del Method CPAP 06/26/25 04:00 06/25/25 06/26/25 06/26/25 22:59 06:59 14:59 Intake Total 1000 / 1000 788.75 / 1788.75 Output Total 0 Balance 999 / 999 788.75 / 1787.75 Weight last 48 hrs Weight 118.977 kg Weight 120.202 kg Weight 120.202 kg Physical Exam 2 Narrative: General: No apparent distress, healthy appearing, well nourished HENMT: normoceophalic Neck: No carotid bruit bilaterally Muskuloskeletal: Full ROM Respiratory: Normal respiratory effort, clear to auscultation bilaterally throughout all lung linn, no use of accessory muscles Cardio: No JVD, bradycardic, regular rhythm, S1 S2 normal, no murmurs, peripheral pulses 2+ radial palpated bilaterally GI: Normal to inspection, nondistended Extremities: Full ROM, normal, normal capillary refill, no cyanosis or edema Neuro: Alert and oriented x4, no focal motor deficits Psych: Affect normal, denies suicidal ideation, mental status grossly normal Skin: No rashes or lesions noted, no wounds Data 06/26/25 07:20 06/26/25 07:20 A&P Assessment and plan 1. Arrhythmia: With palpitations, syncope, flutter sensation, dyspnea on exertion, and lightheadedness Heart rate drops to the 30's Fall risk precautions EKG Telemetry, Pulse oximetry O2 protocol, supplemental O2 to keep saturations greater than 92% Troponins Pacemaker considerations Cardiology consulted- Patient being transferred to [facility] for pacemaker placement. Patient being transferred today. 2. CAD (coronary artery disease): 2022 stent Patient reports that 9 months ago patient had imaging that revealed LVH enlarged and they placed him on metoprolol, angiogram showed stent was patent ASA, Plavix, statin 3. HTN (hypertension): Home meds- Hold Stable 4. 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 Dolan with follow-up July 2025 04/18/2025 - 04/21/2025 patient was seen at [facility] for cervical spine surgery Neck and back pain radiating down leg rated 8/10 Normally takes Acetaminophen for arthritis Pain management 5. Diabetes mellitus: On home metformin Stable 6. Headache: History of headaches related to his cervical spine and history of optic nerve headaches Pain management- Patient educated that pain managment limited secondary to heart block PDMP PDMP Reviewed: Not Reviewed Attestations 2 Medical Necessity Statement*: Continued hospitalization for less than midnights for cardiac consult secondary to bradycardia vs heart block and need for pacemaker at outside facility. Patient being transferred today. Diagnoses Arrhythmia I49.9 CAD (coronary artery disease) I25.10 HTN (hypertension) I10 H/O cervical spine surgery Z98.890 Diabetes mellitus E11.9 Headache R51.9
[2025-06-26 08:35] LABS: Anion Gap 18.0 (5-19); Blood Urea Nitrogen 19 mg/dL (8-23); Calcium 9.3 mg/dL (8.5-10.5); Carbon Dioxide 21 mmol/L (22-29); Chloride 105 mmol/L (98-107); Glucose 118 mg/dL (65-115); Osmolality Calculated 293 mOsm/kg (285-295); Potassium 4.0 mmol/L (3.5-5.1); Sodium 140 mmol/L (136-145)
--- NOTE | 2025-06-26 11:36 | ECG_ITS ---
[facility] Date: 2025-06-26 Pat Name: Larry Rangel Department: Room: 108 Gender: Male Executive Administrator: : 1960 Requested By: Hoa Land Order Number: [id number] Mckeon MD: Faizan Poe M.D. Measurements Intervals [place] Rate: 42 P: 81 LA: 194 QRS: -21 QRSD: 91 T: 46 QT: 441 QTc: 370 Interpretive Statements SINUS BRADYCARDIA WITH Second-degree type I AV block BORDERLINE LEFT AXIS DEVIATION [QRS AXIS < -20] Compared to ECG 06/25/2025 20:49:46 Prolonged QT interval no longer present Electronically Signed On 06-27-2025 18:58:39 PROMOTION SPECIALIST by Faizan Poe M.D. [id number]
[2025-06-26 12:00] VITALS: BP 110/64; PULSE 46; RESP 16; TEMP 36.7; O2SAT 96
--- NOTE | 2025-06-26 14:05 | PM.CONSULT ---
Documented by User: Hoa Land NP 06/26/25 14:49 Providers/Reason For Consult Consulting Physician/Specialty*: Dr. Garcia Reason for Consult*: Second degree type II heart block Requesting Physician: Cesia Hahn NP Attending Physician: GRUPO Ty, AGRONOMIST Primary Care Provider: CHELE Greco History of Present Illness History of Present Illness Larry Rangel is a 64 year old male with history of coronary artery disease status post stent to the PDA in 2021. History of sleep apnea, diabetes, hypertension, hyperlipidemia. Most recent left heart cath in November this year showed nonobstructive coronary artery disease with mild to moderate 40% stenosis of the RCA, elevated LVEDP. Most recent echo in November of this year showed normal LF systolic function 60-65%, moderate left ventricular hypertrophy, mild valvular abnormalities. He came into the ER yesterday evening with a major complaint of low heart rate, chronotropic incompetence, feeling dizzy and like he might pass out when getting up. He states his heart rate would only go up to the 90s at rest and would drop in the 30s at times. He was seen by his PCP and was very tired with no energy and was recommended to go to the ER. Patient states a couple months ago he had neck surgery and they were telling him that they injured his vagal nerve. He states since then his heart rates have been lower and at that time metoprolol was discontinued. He states that he did see some improvement with discontinuation of the metoprolol but then started to see a decline in his heart rate again. At this time his vitals are stable. Blood pressure is stable at 121/75. Heart rate remaining in the 50s at times will go temporarily into the mid 30s but comes right back up. Patient is asymptomatic at this time. Twelve-lead EKG shows second-degree heart block type II. Denies any chest pain or shortness of breath. Review of Systems Narrative: Consitutional: denies fever, chills, body aches, or changes in appetite, denies abnormal weight loss Eyes: Denies changes in vision Card: Denies chest pain, reports bradycardia, lethargy Resp: Denies shortness of breath, denies hemoptysis, denies cough GI: denies abdominal pain, denies nausea or vomiting, denies blood in stool Skin: Denies rash, lesions, or wounds, denies changes to skin color Neuro: reports h/a not severe, chronic, s/s of stroke Gordo: Denies easy bruiding/bleeding All: Denies s/s of allergies 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 02/15/24 06/25/25 Unknown Rx (Dexcom G7 [employer]) hydrocodone 5 mg-acetaminophen 325 1 tab PO Q12H PRN pain 30 days #45 03/12/25 06/25/25 Unknown Rx mg tablet tabs blood-glucose sensor (Dexcom G7 #3 ea 04/28/25 06/25/25 Unknown Rx Sensor device) atorvastatin 40 mg tablet 40 mg PO QAM 06/25/25 06/25/25 06/25/25 History clopidogrel 75 mg tablet 75 mg PO QAM 06/25/25 06/25/25 06/25/25 History furosemide 20 mg tablet See Rx Instructions .Route .COMPLEX 06/25/25 06/25/25 06/25/25 History lisinopril 10 mg tablet 10 mg PO QAM 06/25/25 06/25/25 06/25/25 History metformin 1,000 mg tablet 1,000 mg PO BID 06/25/25 06/25/25 06/25/25 History tirzepatide 12.5 mg/0.5 mL 12.5 mg SUBCUT Q7D 06/25/25 06/25/25 06/23/25 History subcutaneous pen injector (Mounjaro) blood-glucose sensor (Dexcom G7 #3 ea 06/26/25 Unknown Rx Sensor device) Allergies Allergy/AdvReac Type Severity Reaction Status Date / Time No Known Allergies Allergy Verified 06/25/25 12:48 Current Medications Generic Name Dose Route Start Last Admin Trade Name Freq PRN Reason Stop Dose Admin Acetaminophen 650 mg 06/26/25 09:27 06/26/25 10:36 Acetaminophen 325 Mg Tablet PO 650 mg Q6H PRN Administration MILD PAIN Aspirin 81 mg 06/26/25 05:00 06/26/25 05:29 Aspirin 81 Mg Ec Tablet PO 81 mg DAILY MEDINA Administration Atorvastatin Calcium 40 mg 06/26/25 05:00 06/26/25 05:29 Atorvastatin 40 Mg Tablet PO 40 mg QAM MEDINA Administration Clopidogrel Bisulfate 75 mg 06/26/25 05:00 06/26/25 05:29 Clopidogrel 75 Mg Tablet PO 75 mg QAM MEDINA Administration Sodium Chloride 1,000 mls @ 100 mls/hr 06/25/25 19:46 06/26/25 05:28 Sodium Chloride 0.9% IV Not Given .Q10H MEDINA Insulin Human Lispro 0 unit 06/25/25 21:00 06/26/25 12:19 Insulin Lispro 100 Unit/1 Ml SUBCUT Not Given WM&BEDTIME MEDINA Protocol Pantoprazole Sodium 40 mg 06/25/25 19:30 06/25/25 20:00 Pantoprazole 40 Mg Sdv IVP 40 mg Q24H MEDINA Administration PFSH Acute PFSH: Medical History (Updated 06/26/25 @ 14:20 by Hoa Land NP) History of narcotic addiction Hx MRSA infection Hx of complications due to general anesthesia Cardiac arrest Vfib with lumbar soine surgery CAD (coronary artery disease) Had stent in Coronary artery Acidosis Sleep apnea compliant with Bipap Arthritis DDD (degenerative disc disease) Diabetes mellitus HTN (hypertension) Hyperlipidemia Surgical History History of hydrocelectomy S/P shoulder surgery History of back surgery S/P total knee arthroplasty S/P hernia repair Family History Mother Congestive heart failure (CHF) Stroke Diabetes Hypertension Father , Small cell lung disease FH: CABG (coronary artery bypass surgery) Hypertension Lung disease Other Cancer Social History Smoking and tobacco/nicotine status: never used tobacco/nicotine Second hand smoke exposure: No Alcohol intake: never Substance/Drug Use: never Adopted: No Caregiver/support person: No Lives independently: Yes Household members: spouse Housing: House Marital status: Number of children: 4 Highest education level completed: Some College, No Degree Education level details: 4 yrs electronic service: No Current occupational status: disabled Current gender identity: Male Dara/Temple: Yazidism Agree to transfusion: No Vitals/I&O/Wt Last Vital Signs Temp 98.3 F 06/26/25 07:24 Pulse 53 L 06/26/25 07:24 Resp 22 H 06/26/25 07:24 BP 121/75 06/26/25 07:24 Pulse Ox 97 06/26/25 07:24 O2 Del Method CPAP 06/26/25 04:00 06/25/25 06/26/25 06/26/25 22:59 06:59 14:59 Intake Total 1000 / 1000 788.75 / 1788.75 360 / 360 Output Total 0 / Balance 999 / 999 788.75 / 1787.75 360 / 360 Weight last 48 hrs Weight 262 lb 4.8 oz Weight 265 lb Weight 265 lb Physical Exam Narrative: General: No apparent distress, healthy appearing, well nourished HENMT: normoceophalic Neck: No carotid bruit bilaterally Muskuloskeletal: Full ROM Respiratory: Normal respiratory effort, clear to auscultation bilaterally throughout all lung linn, no use of accessory muscles Cardio: No JVD, bradycardic, regular rhythm, S1 S2 normal, no murmurs, peripheral pulses 2+ radial palpated bilaterally GI: Normal to inspection, nondistended Extremities: Full ROM, normal, normal capillary refill, no cyanosis or edema Neuro: Alert and oriented x4, no focal motor deficits Psych: Affect normal, denies suicidal ideation, mental status grossly normal Skin: No rashes or lesions noted, no wounds Data 06/26/25 07:20 06/26/25 07:20 A&P Assessment and plan 1. Bradycardia: 2. CAD (coronary artery disease): 3. Mobitz type 2 second degree heart block: 4. HTN (hypertension): Plan: 2nd degree heart block type 2- At this time, patient's vitals are stable, patient has been symptomatic, heart rate drops in the 30s, has discussed chronotropic incompetence without reversible, therefore will recommend transfer to facility that performs pacemaker placement, as we do not do that here. Patient requests [facility]. He has been accepted for transfer to Dr. Flores hospitalist. Will continue to monitor for worsening bradycardia/heart block. At this time, patient is stable. Avoid abby blocking agents. Htn- home meds on hold at this time due to patient's bp is stable at this time CAD- Continue aspirin and Plavix, statin therapy Thank you Cesia LOMBARDO, for allowing us to care for this very pleasant patient. PDMP PDMP Reviewed: Not Reviewed Consult Attestations Medical Necessity Statement: Deferred to primary. Coding Level of Care Code Acute Code for Chg Fwd Diagnoses Bradycardia R00.1 CAD (coronary artery disease) I25.10 Mobitz type 2 second degree heart block I44.1 HTN (hypertension) I10 Documented by User: Erika Garcia MD 06/26/25 17:25 History of Present Illness History of Present Illness Larry Rangel is a 64 year old male with history of coronary artery disease status post stent to the PDA in 2021. History of sleep apnea, diabetes, hypertension, hyperlipidemia. Most recent left heart cath in November this year showed nonobstructive coronary artery disease with mild to moderate 40% stenosis of the RCA, elevated LVEDP. Most recent echo in November of this year showed normal LF systolic function 60-65%, moderate left ventricular hypertrophy, mild valvular abnormalities. He came into the ER yesterday evening with a major complaint of low heart rate, chronotropic incompetence, feeling dizzy and like he might pass out when getting up. He states his heart rate would only go up to the 90s at most during exercise and would drop in the 30s at times he feels dizzy with it. He was seen by his PCP and was very tired with no energy and was recommended to go to the ER. Patient states a couple months ago he had neck surgery and they were telling him that they injured his vagal nerve. He states since then his heart rates have been lower and at that time metoprolol was discontinued. He states that he did see some improvement with discontinuation of the metoprolol but then started to see a decline in his heart rate again. At this time his vitals are stable. Blood pressure is stable at 121/75. In the ER patient heart rate was also noted to be fluctuating between 30s to 50s, patient is asymptomatic at this time. Twelve-lead EKG shows second-degree heart block type II. Denies any chest pain or shortness of breath. 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 02/15/24 06/25/25 Unknown Rx (Dexcom G7 [employer]) hydrocodone 5 mg-acetaminophen 325 1 tab PO Q12H PRN pain 30 days #45 03/12/25 06/25/25 Unknown Rx mg tablet tabs blood-glucose sensor (Dexcom G7 #3 ea 04/28/25 06/25/25 Unknown Rx Sensor device) atorvastatin 40 mg tablet 40 mg PO QAM 06/25/25 06/25/25 06/25/25 History clopidogrel 75 mg tablet 75 mg PO QAM 06/25/25 06/25/25 06/25/25 History furosemide 20 mg tablet See Rx Instructions .Route .COMPLEX 06/25/25 06/25/25 06/25/25 History lisinopril 10 mg tablet 10 mg PO QAM 06/25/25 06/25/25 06/25/25 History metformin 1,000 mg tablet 1,000 mg PO BID 06/25/25 06/25/25 06/25/25 History tirzepatide 12.5 mg/0.5 mL 12.5 mg SUBCUT Q7D 06/25/25 06/25/25 06/23/25 History subcutaneous pen injector (Mounjaro) blood-glucose sensor (Dexcom G7 #3 ea 06/26/25 Unknown Rx Sensor device) Allergies Allergy/AdvReac Type Severity Reaction Status Date / Time No Known Allergies Allergy Verified 06/25/25 12:48 PFSH Acute PFSH: Medical History (Updated 06/26/25 @ 14:20 by Hoa Land NP) History of narcotic addiction Hx MRSA infection Hx of complications due to general anesthesia Cardiac arrest Vfib with lumbar soine surgery CAD (coronary artery disease) Had stent in Coronary artery Acidosis Sleep apnea compliant with Bipap Arthritis DDD (degenerative disc disease) Diabetes mellitus HTN (hypertension) Hyperlipidemia Surgical History History of hydrocelectomy S/P shoulder surgery History of back surgery S/P total knee arthroplasty S/P hernia repair Family History Mother Congestive heart failure (CHF) Stroke Diabetes Hypertension Father , Small cell lung disease FH: CABG (coronary artery bypass surgery) Hypertension Lung disease Other Cancer Social History Smoking and tobacco/nicotine status: never used tobacco/nicotine Second hand smoke exposure: No Alcohol intake: never Substance/Drug Use: never Adopted: No Caregiver/support person: No Lives independently: Yes Household members: spouse Housing: House Marital status: Number of children: 4 Highest education level completed: Some College, No Degree Education level details: 4 yrs electronic service: No Current occupational status: disabled Current gender identity: Male Dara/Temple: Yazidism Agree to transfusion: No Data 06/26/25 07:20 06/26/25 07:20 A&P Assessment and plan 1. Bradycardia: 2. CAD (coronary artery disease): 3. Mobitz type 2 second degree heart block: 4. HTN (hypertension): Plan: Mobitz type II heart block with persistent bradycardia while awake heart rate dips down to 40s-currently patient remained stable vitals valencia, patient has been symptomatic with dizziness while sitting and sometimes while standing he becomes short of breath and fatigued easily upon walking heart rate does not go more than 90s even at moderate to severe exertion rendering him chronotropic incompetence, therefore will recommend transfer to facility that performs pacemaker placement since we do not have facility here at this point patient remained stable vital while therefore does not need temporary pacemaker. Patient is not on any abby chandra for many weeks, there is no other reversible cause. Htn- home meds on hold at this time due to patient's bp is stable at this time CAD- Continue aspirin and Plavix, statin therapy Thank you Cesia LOMBARDO, for allowing us to care for this very pleasant patient. PDMP PDMP Reviewed: Not Reviewed Coding Level of Care Code Acute Code for Chg Fwd Diagnoses Bradycardia R00.1 CAD (coronary artery disease) I25.10 Mobitz type 2 second degree heart block I44.1 HTN (hypertension) I10
[2025-06-26 16:00] VITALS: BP 123/61; PULSE 47; RESP 17; TEMP 36.8; O2SAT 97
--- NOTE | 2025-06-26 16:25 | PM.DCS ---
Discharge Providers Date of Admission: 06/25/25 18:39 Date of Discharge: June 26, 2025 Attending Provider at Admission: Cele Qureshi MD Attending Provider at Discharge: GRUPO Ty, CARPENTER MINE Consults: Cardiology Primary Care Provider: CHELE Greco Diagnoses at Discharge Discharge Diagnosis 1. Arrhythmia: Details from hospital stay: With palpitations, syncope, flutter sensation, dyspnea on exertion, and lightheadedness Heart rate drops to the 30's Fall risk precautions EKG Telemetry, Pulse oximetry O2 protocol, supplemental O2 to keep saturations greater than 92% Troponins Pacemaker considerations Cardiology consulted- Patient being transferred to [facility] for pacemaker placement. Patient being transferred today. 2. Coronary artery disease involving [place] coronary artery of [place] heart without angina pectoris: Details from hospital stay: 2022 stent Patient reports that 9 months ago patient had imaging that revealed LVH enlarged and they placed him on metoprolol, angiogram showed stent was patent ASA, Plavix, statin 3. Primary hypertension: Details from hospital stay: Home meds- Hold Stable 4. 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 Dolan with follow-up July 2025 04/18/2025 - 04/21/2025 patient was seen at [facility] for cervical spine surgery Neck and back pain radiating down leg rated 8/10 Normally takes Acetaminophen for arthritis Pain management 5. Type 2 diabetes mellitus with other specified complication, without long-term current use of insulin: Details from hospital stay: On home metformin Stable 6. Headache: Details from hospital stay: History of headaches related to his cervical spine and history of optic nerve headaches Pain management- Patient educated that pain managment limited secondary to heart block Reason for Visit Reason for Visit: low bp/light headed Hospital Course Hospital Course Larry Rangel is a 64 year old male with prior medical history of CAD, SIXTO, DDD, CP, HTN, HLD, URI, DM, enlarged LVH, bradycardia, diabetic ulcers, and multiple spine surgeries presenting with complaints of syncopal symptoms and pain. Patient reports that 2 months ago he had a cervical spine surgery -and postop he had episodes of bradycardia. Cardiology was consulted and his metoprolol was discontinued. They had wanted to keep him but he decided to follow-up with his primary Traffic Technician, Dr. Garcia. -Patient reports that he found that Dr. Garcia was no longer practicing in this area but around the same time he felt his symptoms had improved. Patient is used to being active and began exercising/walking more. He found he could not tolerate this with his heart rate registering 55 on flat land, reaching only up to 95 uphill and registering 40s at rest. Lowest heart rate was in the 30s. He had difficulty sleeping, fatigue, dizziness, lightheadedness, near-syncope, falls, and increased headaches. He saw his PCP who suspected a second-degree heart block and advised him to come to the ED with EMS. Patient was close to the ED and elected to come to [facility] ED via private vehicle. at bedside. Of note, patient is a Gnosticism and refuses all blood products. He is a full code. Patient had flu shot last week. In the ED, BP 122/71, HR 37, RR 17, T97.2. CBC unremarkable. Lactic 2.4, GFR 67. BUN and creatinine WNL. Troponins 18. Repeat troponins pending. BNP 231. CXR; no acute pulmonary findings. Will admit to the hospitalist service for further evaluation and treatment. 06/26/25: Continued hospitalization for less than midnights for cardiac consult secondary to bradycardia vs heart block and need for pacemaker at outside facility. Patient being transferred today. Physical Exam Narrative: General: No apparent distress, healthy appearing, well nourished HENMT: normoceophalic Neck: No carotid bruit bilaterally Muskuloskeletal: Full ROM Respiratory: Normal respiratory effort, clear to auscultation bilaterally throughout all lung [place], no use of accessory muscles Cardio: No JVD, bradycardic, regular rhythm, S1 S2 normal, no murmurs, peripheral pulses 2+ radial palpated bilaterally GI: Normal to inspection, nondistended Extremities: Full ROM, normal, normal capillary refill, no cyanosis or edema Neuro: Alert and oriented x4, no focal motor deficits Psych: Affect normal, denies suicidal ideation, mental status grossly normal Skin: No rashes or lesions noted, no wounds Discharge Data Studies Completed and Pending Completed Studies During Hospitalization Category Date Time Status XR chest 1V portable [id number] Stat Exams 06/25/25 14:17 Completed Pending at discharge Category Date Time Status Basic Metabolic Panel AM LABS Lab 06/27/25 04:00 Ordered Basic Metabolic Panel AM LABS Lab 06/28/25 04:00 Ordered Complete Blood Count w/Auto AM LABS Lab 06/27/25 04:00 Ordered Complete Blood Count w/Auto AM LABS Lab 06/28/25 04:00 Ordered Radiology Impressions Chest X-Ray 06/25/25 14:17 IMPRESSION: 1. No acute cardiopulmonary finding. Laboratory Results WBC 6.91 10^3/uL (3.29-11.43) 06/26/25 07:20 RBC 4.62 10^6/uL (3.85-5.65) 06/26/25 07:20 Hgb 13.30 g/dL (11.27-16.99) 06/26/25 07:20 Hct 40.4 % (37-53) 06/26/25 07:20 MCV 87.4 fl (82-101) 06/26/25 07:20 MCH 28.8 pg (27-33) 06/26/25 07:20 MCHC 32.9 g/dL (30-55) 06/26/25 07:20 RDW 13.2 % (12.1-15.1) 06/26/25 07:20 Plt Count 192 10^3/cmm (157-399) 06/26/25 07:20 MPV 10.0 fL (7.4-10.4) 06/26/25 07:20 Neut % (Auto) 67.4 % 06/26/25 07:20 Lymph % (Auto) 21.1 % 06/26/25 07:20 [place] % (Auto) 8.4 % 06/26/25 07:20 Eos % (Auto) 2.6 % 06/26/25 07:20 Baso % (Auto) 0.4 % 06/26/25 07:20 Neut # (Auto) 4.65 10^3/uL (1.8-7.7) 06/26/25 07:20 Lymph # (Auto) 1.5 10^3/uL (0.8-4.8) 06/26/25 07:20 [place] # (Auto) 0.6 10^3/uL (0.2-0.9) 06/26/25 07:20 Eos # (Auto) 0.2 10^3/uL (0.0-0.8) 06/26/25 07:20 Baso # (Auto) 0.0 10^3/uL (0.0-0.1) 06/26/25 07:20 Nucleated RBC % (auto) 0 % 06/26/25 07:20 Nucleated RBCs # 0.0 /100WBC 06/26/25 07:20 Sodium 140 mmol/L (136-145) 06/26/25 07:20 Potassium 4.0 mmol/L (3.5-5.1) 06/26/25 07:20 Chloride 105 mmol/L (98-107) 06/26/25 07:20 Carbon Dioxide 21 mmol/L (22-29) L 06/26/25 07:20 Anion Gap 18.0 (5-19) 06/26/25 07:20 BUN 19 mg/dL (8-23) 06/26/25 07:20 Creatinine 0.9 mg/dL (0.7-1.2) 06/26/25 07:20 GFR Calculation 84.4 mL/min (90-130) L 06/26/25 07:20 Glucose 118 mg/dL (65-115) H 06/26/25 07:20 POC Glucose 140 mg/dL (70-110) H 06/26/25 11:12 Calculated Osmolality 293 mOsm/kg (285-295) 06/26/25 07:20 Lactic Acid 2.4 mmol/L (0.5-2.2) H 06/25/25 14:21 Lactic Acid (Sepsis) 2.3 mmol/L (0.5-2.2) H 06/25/25 16:06 Calcium 9.3 mg/dL (8.5-10.5) 06/26/25 07:20 Phosphorus 3.4 mg/dL (2.5-4.5) 06/25/25 20:00 Magnesium 1.7 mg/dL (1.7-2.3) 06/25/25 20:00 Total Bilirubin 0.7 mg/dL (0.15-1.2) 06/25/25 14:21 AST 16 U/L (0-40) 06/25/25 14:21 ALT 14 U/L (0-41) 06/25/25 14:21 Alkaline Phosphatase 67 U/L (40-130) 06/25/25 14:21 Troponin T Baseline 18 ng/L (0-15) H 06/25/25 14:21 Troponin T 120 Minute 15.38 ng/L (0-15) H 06/25/25 16:06 Delta Troponin T -2.62 ABS# (0-10) L 06/25/25 16:06 Troponin T Hi Sens 6Hr 19.34 ng/L (0-15) H 06/25/25 20:00 Troponin T Hi Sens 6Hr Delta 1.34 ng/L (0-12) 06/25/25 20:00 NT-Pro-B Natriuret Pep 231 pg/mL (0-125) H 06/25/25 14:21 Total Protein 7.5 g/dL (6.6-8.7) 06/25/25 14:21 Albumin 4.5 g/dL (3.5-5.2) 06/25/25 14:21 Globulin 3.0 g/dL (1.3-4.6) 06/25/25 14:21 Urine Color Yellow (Yellow) 06/25/25 15:03 Urine Appearance Clear (CLEAR) 06/25/25 15:03 Urine pH 5.5 (5-7) 06/25/25 15:03 Ur Specific [place] 1.013 (1.005-1.030) 06/25/25 15:03 Urine Protein Negative (Negative) 06/25/25 15:03 Urine Glucose (UA) Negative (Normal) 06/25/25 15:03 Urine Ketones Negative (Negative) 06/25/25 15:03 Urine Blood Negative (Negative) 06/25/25 15:03 Urine Nitrate Negative (Negative) 06/25/25 15:03 Urine Bilirubin Negative (Negative) 06/25/25 15:03 Urine Urobilinogen 0.2 mg/dL (Negative) 06/25/25 15:03 Ur Leukocyte Esterase Negative (Negative) 06/25/25 15:03 Urine RBC 0-2 /hpf (0-2) 06/25/25 15:03 Urine WBC 0-5 /hpf (0-5) 06/25/25 15:03 Ur Squamous Epith Cells 0-5 /hpf (0-5) 06/25/25 15:03 Amorphous Sediment Not Reportable 06/25/25 15:03 Urine Bacteria None seen /hpf (NONE) 06/25/25 15:03 Hyaline Casts 3.30 /lpf 06/25/25 15:03 Vitals Last Vital Signs Temp 98.1 F 06/26/25 12:00 Pulse 46 L 06/26/25 12:00 Resp 16 06/26/25 12:00 BP 110/64 06/26/25 12:00 Pulse Ox 96 06/26/25 12:00 O2 Del Method CPAP 06/26/25 04:00 Discharge Plan Discharge Patient Disposition: Home Condition: Stable Prescriptions: No Action multivitamin Tablet 1 tab PO DAILY nitroglycerin [Nitrostat] 0.4 mg tablet, sublingual 0.4 mg sublingual Q5M PRN (Reason: chest pain) Qty: 25 3RF Rx Instructions: do not exceed 3 doses per episode aspirin [Adult Low Dose Aspirin] 81 mg tablet,delayed release (DR/EC) 81 mg PO DAILY Qty: 90 3RF (DME) Dexcom G7 Channel Marketing Specialist Misc See Rx Instructions .Route Qty: 1 0RF Rx Instructions: As directed hydrocodone-acetaminophen 5-325 mg tablet 1 tab PO Q12H PRN (Reason: pain) 30 Days Qty: 45 0RF (DME) Dexcom G7 Sensor Device See Rx Instructions .ROUTE .COMPLEX Qty: 3 3RF Dose Instruction: USE DIRECTED Rx Instructions: USE DIRECTED (DME) Dexcom G7 Sensor Device See Rx Instructions .ROUTE .COMPLEX Qty: 3 0RF Dose Instruction: USE DIRECTED Rx Instructions: USE DIRECTED atorvastatin 40 mg tablet 40 mg PO QAM clopidogrel 75 mg tablet 75 mg PO QAM metformin 1,000 mg tablet 1,000 mg PO BID lisinopril 10 mg tablet 10 mg PO QAM furosemide 20 mg tablet See Rx Instructions .ROUTE .COMPLEX Rx Instructions: TAKE 1 TABLET BY MOUTH EVERY MORNING and ONE tablet at 2pm. Mounjaro 12.5 mg/0.5 mL pen injector 12.5 mg SUBCUT Q7D Rx Instructions: Monday Referrals: Jackie Nelson FNP [Primary Care Provider, Family Practice] Discharge Diet: Advance as tolerated and As Directed Discharge Activity: Increase activity as tolerated Patient Instructions: Opioid Safety, Patient Portal & Claire Instructions Discharge Attestations Time Spent in Discharge Care*: greater than 30 min Quality Metrics Clinical Quality Measures [ No reported AMI, CVA or VTE this stay] Coding Level of Care Code Acute Code for Chg Fwd Total time (in minutes) for Discharge: 60 Diagnoses Arrhythmia I49.9 Coronary artery disease involving [place] coronary artery of [place] heart without angina pectoris I25.10 Associated angina: without angina Coronary Disease-Associated Artery/Lesion type: [place] artery [place] vs. 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
--- NOTE | 2025-06-26 17:30 | PC.NURSE ---
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 report called to nurse.
[2025-06-26 18:19] VITALS: BP 123/67; PULSE 47; O2SAT 96
== END 2025-06-26 17:30 | disposition short-term general hospital (02) | DRG 310 ==
LOC: ER 18:02 → CSU 18:39
PROVIDERS: Emergency Medicine; Admitting Provider Internal Medicine; Emergency Provider Family Medicine; PCP Nurse Practitioner Family; Visit Provider Clinical Nurse Specialist Acute Care
DX: I44.1 Atrioventricular block, second degree (principal); I25.10 Atherosclerotic heart disease of native coronary artery without angina pectoris; I10 Essential (primary) hypertension; M19.90 Unspecified osteoarthritis, unspecified site; E11.9 Type 2 diabetes mellitus without complications; G47.33 Obstructive sleep apnea (adult) (pediatric); E78.5 Hyperlipidemia, unspecified; R51.9 Headache, unspecified; Z95.5 Presence of coronary angioplasty implant and graft; Z79.84 Long term (current) use of oral hypoglycemic drugs; Z79.82 Long term (current) use of aspirin; Z79.02 Long term (current) use of antithrombotics/antiplatelets; Z79.85 Long-term (current) use of injectable non-insulin antidiabetic drugs; Z98.1 Arthrodesis status
CPT/HCPCS: 36415; 36416; 71045; 80048; 80053; 81001; 82962; 83605; 83735; 83880; 84100; 84484; 85025; 93005; 99285; J2470; J7030; J9999

== ENCOUNTER 2025-07-07 10:31 | Outpatient (CLI) | payer MEDICARE, SELFPAY ==
--- NOTE | 2025-07-07 10:48 | XRR_ITS ---
PROCEDURE INFORMATION: Exam: XR Cervical Spine Exam date and time: 07/07/2025 10:53 AM Age: 64 years old Clinical indication: Neck pain; Prior surgery; Surgery date: 6+ months; Surgery type: C spine fusion; Additional info: Cervical disc disorder with radiculopathy TECHNIQUE: Imaging protocol: Radiologic exam of the cervical spine. Views: 2 or 3 views. COMPARISON: CT cervical spin wo con* [id number] 03/17/2025 03:56 PM FINDINGS: Tubes, catheters and devices: Hardware is grossly intact. Bones/joints: Anterior fixation at C3-C4 with disc spacer. Disc space narrowing at C5-C6 and C6-C7. Anterior osteophytic changes of the lower cervical spine. Posterior spinal laminar line is intact. Facet joints are well aligned. Lateral masses of C1 align well with C2. Soft tissues: Prevertebral soft tissues are unremarkable. Lungs: Lung apices are clear. Other findings: The dens is grossly intact. XR/XR cervical spine 3V* [id number] IMPRESSION: Postoperative changes of the cervical spine with degenerative changes as above.
== END 2025-07-07 10:32 | disposition home or self-care (01) ==
PROVIDERS: PCP Nurse Practitioner Family; Visit Provider Neurological Surgery
DX: M47.812 Spondylosis without myelopathy or radiculopathy, cervical region (principal); Z98.890 Other specified postprocedural states; M25.78 Osteophyte, vertebrae
CPT/HCPCS: 72040